=== PATIENT | male | born 1975 | race Caucasian/White ===

== ENCOUNTER 2021-12-09 13:53 | Emergency (ER) | payer BC, SELFPAY ==
--- NOTE | 2021-12-09 14:00 | XR_ITS ---
WS: [id number] XR foot RT min 3V* [id number] REASON FOR EXAM: pain FINDINGS: No fracture or focal bone lesion. Joint spaces of the forefoot, midfoot, and hindfoot are intact. No significant soft tissue abnormality identified. XR/XR foot RT min 3V* [id number] IMPRESSION: No acute abnormality.
[2021-12-09 14:05] VITALS: BP 167/89; PULSE 119; RESP 18; TEMP 36.8; O2SAT 98; BMI 28.8
--- NOTE | 2021-12-09 14:18 | W.ED.EXTPRO ---
HPI - Extremity Problem General: Chief complaint: Extremity Injury, Lower Stated complaint: Right foot pain Time Seen by Provider: 12/09/21 14:13 History of Present Illness: Patient is a 46-year-old male comes to the ED with right foot pain. Injury occurred 2 days ago. Patient says he got his right foot caught in the bed of truck and then fell twisting his right foot ankle and lower leg. Since injury he has had pain and swelling in his right foot over his fourth and fifth metatarsal region. He also has a blood blister in between his fourth and fifth toe. He has swelling redness to the right foot. Endorses pain in his right ankle as well and it radiates up and to the middle of his [place]. He rates his pain currently a 9 out of 10. He has taken ibuprofen and Tylenol and it has not helped. Associated symptoms: Deny chest pain, fever(s) or rash Review of Systems Const: Denies: fever(s), chills or fatigue Eyes: Denies: change in vision or eye discomfort ENMT: Denies: throat pain, odynophagia, nasal discharge or nasal congestion Card: Denies: chest pain, palpitations, edema, swelling of feet/ankles, dyspnea on exertion or orthopnea Resp: Denies: dyspnea, productive cough or non-productive cough GI: Denies: abdominal pain, nausea, vomiting, diarrhea, constipation or hematochezia : Denies: flank pain, difficulty urinating, dysuria or hematuria Musc: Reports: extremity pain (Right foot and ankle) and extremity swelling (Right foot); Denies: neck pain or back pain Skin/Breast: Denies: rash or new lesions Neuro: Denies: headache(s), numbness in extremities or weakness in extremities [facility], [facility] ED PFSH: Medical History No pertinent family history No pertinent past medical history Physical Exam Const: COMMON NORMALS: patient oriented x3, healthy appearing and alert GENERAL APPEARANCE: cooperative HENMT: COMMON NORMALS: normocephalic HEAD & SCALP: normocephalic MOUTH: Normal oral and palatal mucosa present THROAT: posterior oropharynx normal and uvula midline Neck/C-Spine: COMMON NORMALS: supple GENERAL: Yes normal visual inspection Resp: COMMON NORMALS: normal respiratory effort, No retractions, No use of accessory muscles and clear to auscultation bilaterally AUSCULTATION: clear to auscultation bilaterally Cardio: COMMON NORMALS: regular rate, regular rhythm, S1 normal heart sound present, S2 normal heart sound present, No gallops present (Cardio), No clicks present (Cardio), No murmurs present (Cardio) and Peripheral pulses 2+ throughout RATE: regular rate RHYTHM: regular rhythm HEART SOUNDS: S1 normal heart sound present and S2 normal heart sound present PERIPHERAL PULSES: Peripheral pulses 2+ throughout GI: COMMON NORMALS: Normal to inspection, nondistended, normoactive bowel sounds present, Soft to palpation, non-tender and no masses PALPATION: Yes Soft to palpation : COMMON NORMALS: Yes no CVA tenderness BLADDER/KIDNEY EXAM: Yes no CVA tenderness Back/Pelvis: COMMON NORMALS: no CVA tenderness Extremity: NARRATIVE EXTREMITY EXAM: Right foot?in between third and fourth digits patient has a blood blister. There is tenderness, erythema and warmth surrounding blood blister which is concerning for possible cellulitis developing. RIGHT LOWER EXTREMITY: Yes foot & digits Right ankle: Yes inspection (Mild swelling no visible deformity noted), Yes palpation (Tenderness over lateral malleolus), Yes ROM (Limited due to pain) and Yes neurovascular exam (Neurovascular tact) and Yes foot & digits (Swelling and erythema of the right foot. Tender over midfoot) Right foot and digits: Yes palpation (Tender over midfoot) Neuro: COMMON NORMALS: patient oriented x3 SENSORIUM/ORIENTATION: Yes alert GAIT: Yes Normal gait present Skin: GENERAL SKIN EXAM: dry skin Course Vital Signs: Vital signs: Vital Signs Temperature 98.2 F 12/09/21 14:05 Pulse Rate 119 H 12/09/21 14:05 Respiratory Rate 18 12/09/21 14:05 Blood Pressure 167/89 12/09/21 14:05 Pulse Oximetry 98 12/09/21 14:05 Oxygen Delivery Me thod 12/09/21 14:05 MDM - Extremity (Nontraumatic) Medical Decision Making Patient is a 46-year-old male comes to the ED with right foot and ankle injury. Patient had a twisting injury to right ankle and foot. Vital stable. Patient has some swelling of the midfoot region. There is a blood blister present in between fourth and fifth toes with surrounding erythema, warmth and tenderness just suggestive of a cellulitis. He has lateral malleolus tenderness and limited range of motion ankle as well. Patient has pain with weightbearing. Neurovascular tact. X-rays of right foot, ankle and tib-fib showed no acute fractures. Given patient's clinical appearance I am going to put patient in an Ortho boot and I placed an order with case management for patient to be referred to Ortho for follow-up on ankle and foot sprain. Patient was diagnosed with right foot and ankle sprain and cellulitis. He was discharged home with a prescription for hydrocodone for pain and cephalexin for cellulitis. Follow-up with PCP in the next week for reevaluation as well. Return ED precautions given. Patient understood and agreed with plan. Lab Data Radiology Impressions Foot X-Ray 12/09/21 14:00 IMPRESSION: No acute abnormality. Ankle X-Ray 12/09/21 14:30 IMPRESSION: No acute abnormality. Tibia/Fibula X-Ray 12/09/21 14:30 IMPRESSION: No acute abnormality. Discharge Plan Discharge Patient Disposition: Home Clinical Impression: Ankle sprain and strain Foot sprain Qualifiers: Encounter type: initial encounter Laterality: right Qualified Code(s): S93.601A - Unspecified sprain of right foot, initial encounter Cellulitis Qualifiers: Site of cellulitis: extremity Site of cellulitis of extremity: lower extremity Laterality: right Qualified Code(s): L03.115 - Cellulitis of right lower limb Condition: Stable Prescriptions: New cephalexin 500 mg capsule 500 mg PO Q6H 7 Days Qty: 28 0RF Discharge Orders: Discharge ED (Routine); Ordered 12/09/21 Ordered By: David Galeas Referrals: Jennifer Garcia APN [Primary Care Provider] - Discharge Diet: Regular Discharge Activity: Increase activity as tolerated Activity Restrictions/Additional Instructions: Follow-up with PCP to reevaluate right foot within a week. Wear Ortho boot and weight-bear as tolerated until you are evaluated by orthopedic doctor. Ice and elevate right foot and ankle to help with symptoms as well. geriatric care manager should contact you in the next several days set up an appoint with Ortho for follow-up on ankle and foot sprain. Take medications as prescribed. Return to the ER or your medical provider if condition worsens. Please read and understand discharge instructions. Thank you for choosing [facility] for your healthcare needs today. Please realize this is an emergency room and that we are providing you with a medical screening exam and this may not be complete and all inclusive of all the testing and or work up that you may need to determine your ailment or severity of your illness. It is very important that you follow up as instructed or that you return to the Emergency Department should you have concerns or if your condition changes or worsens in any way. Coding Level of Care Code ED Food Quality Technician for [place] Fwd Exam Comprehensive
--- NOTE | 2021-12-09 14:30 | XR_ITS ---
WS: [id number] XR ankle RT min 3V* [id number] REASON FOR EXAM: Twist injury to ankle FINDINGS: The joint spaces of the right ankle are intact. Fibula, tibia, and talus are intact. No soft tissue abnormality. XR/XR ankle RT min 3V* [id number] IMPRESSION: No acute abnormality.
--- NOTE | 2021-12-09 14:30 | XR_ITS ---
WS: [id number] XR tibia fibula RT 2V [id number] REASON FOR EXAM: twist injury to lower leg FINDINGS: The right tibia and fibula are intact, without fracture. No periosteal reaction or focal bone lesion. No soft tissue abnormality. XR/XR tibia fibula RT 2V [id number] IMPRESSION: No acute abnormality.
[2021-12-09] MEDS: HYDROcodone-acetaminophen 7.5-325 mg Tablet 1 TAB PO (14:47)
[2021-12-09 16:36] VITALS: RESP 16
[2021-12-09] MEDS: cephALEXin 500 mg Capsule PO (16:36)
[2021-12-09] MEDS: oxyCODONE-APAP 5-325 mg Tablet 1 TAB PO (16:36)
[2021-12-09 16:41] VITALS: PULSE 109; RESP 16; O2SAT 97
--- NOTE | 2021-12-10 14:21 | PC.NURSE ---
pt called, noted adverse reaction to antibiotic cephalexin new prescription of Cipro 500mg PO twice daily x 7 days called into [facility] pharmacy per Remi
--- NOTE | 2021-12-12 09:18 | DCPLANNER ---
Addendum entered by Jaz Cisneros 12/15/21 14:06: Patient had a follow up appointment scheduled for 12.13.[address] Kingsley at ortho - patient did attend appointment. Original Note: housekeeping manager had message to schedule a follow up appointment for patient with ortho. housekeeping manager sent patients information to the front office staff at ortho. Patients information will be printed and reviewed. Clinic will call patient with appointment information.
== END 2021-12-09 16:42 | disposition home or self-care (01) ==
PROVIDERS: Emergency Provider Physician Assistant; PCP Nurse Practitioner Family
DX: S93.601A Unspecified sprain of right foot, initial encounter (principal); L03.115 Cellulitis of right lower limb; S93.401A Sprain of unspecified ligament of right ankle, initial encounter; S96.911A Strain of unspecified muscle and tendon at ankle and foot level, right foot, initial encounter; X50.1XXA Overexertion from prolonged static or awkward postures, initial encounter
CPT/HCPCS: 73590; 73610; 73630; 97760; 99284; L4361

== ENCOUNTER 2021-12-13 16:23 | Outpatient (CLI) | payer BC, SELFPAY | END 2021-12-13 16:24 | disposition home or self-care (01) | LOC: SPT 16:23 | PROVIDERS: PCP Nurse Practitioner Family; Visit Provider Podiatrist Foot & Ankle Surgery | DX: Z46.89 Encounter for fitting and adjustment of other specified devices (principal); S93.401D Sprain of unspecified ligament of right ankle, subsequent encounter; S96.911D Strain of unspecified muscle and tendon at ankle and foot level, right foot, subsequent encounter; X58.XXXD Exposure to other specified factors, subsequent encounter | CPT/HCPCS: 97760; L1902 ==

== ENCOUNTER 2022-02-07 15:33 | Inpatient (IN) | payer OTHER, BC, SELFPAY ==
[2022-02-07 15:35] VITALS: BP 161/82; PULSE 100; RESP 18; TEMP 36.8; O2SAT 96; BMI 302.8
--- NOTE | 2022-02-07 16:24 | XRR_ITS ---
PROCEDURE INFORMATION: Exam: XR Right Foot Exam date and time: 02/07/2022 4:41 PM Age: 46 years old Clinical indication: Pain; Foot; Right; Additional info: Infected wound on foot TECHNIQUE: Imaging protocol: Radiologic exam of the Right foot. Views: 3 or more views. COMPARISON: No relevant prior studies available. FINDINGS: Bones/joints: Normal. Soft tissues: Normal. XR/XR foot RT min 3V* [id number] IMPRESSION: No acute findings. Unremarkable soft tissues no foreign body
--- NOTE | 2022-02-07 16:29 | ED_ITS ---
Documented by User: ERIC Espinoza 02/08/22 08:03 HPI - Wound/Laceration General: Chief Complaint: Wound/Laceration Stated Complaint: injury to foot, sent by wound clinic Time Seen by Provider: 02/07/22 16:28 History of Present Illness: Patient is a 46-year-old female that comes to the ED for right foot wound. Patient was sent here to the ED via wound clinic for admission. He has had this wound for about 2 months and has been on multiple antibiotics and wound is not improving. He is currently on levofloxacin. Wound care clinic talked with Dr. Jordan about patient case and he recommended having patient sent to the ED for admission and he will need to be on IV antibiotics. Associated symptoms: Denies chills, fever(s), nausea or vomiting Review of Systems Const: Denies: fever(s), chills or fatigue Eyes: Denies: change in vision or eye discomfort ENMT: Denies: throat pain, odynophagia, nasal discharge or nasal congestion Card: Denies: chest pain, palpitations, edema, swelling of feet/ankles, dyspnea on exertion or orthopnea Resp: Denies: dyspnea, productive cough or non-productive cough GI: Denies: abdominal pain, nausea, vomiting, diarrhea, constipation or hematochezia : Denies: flank pain, difficulty urinating, dysuria or hematuria Musc: Reports: extremity pain (Right foot); Denies: neck pain, back pain or extremity swelling Skin/Breast: Reports: new lesions (Right foot wound); Denies: rash Neuro: Denies: headache(s), numbness in extremities or weakness in extremities [facility] ED PFSH: Medical History No pertinent family history No pertinent past medical history Social History Smoking and tobacco status: current every day smoker smokeless tobacco Smokeless tobacco user: snuff Smokeless tobacco details: can per day x 40 yrs Second hand smoke exposure: No Alcohol intake: current Alcohol intake frequency: holidays/special occasions only Alcohol type: beer Adopted: No Caregiver/support person: Yes Lives independently: Yes Household members: other Marital status: Unknown service: No Current occupational status: employed Current occupation: [employer] History of recent travel: No Current gender identity: Male Special wagner needs: No Physical Exam Const: COMMON NORMALS: patient oriented x3 and alert GENERAL APPEARANCE: cooperative HENMT: COMMON NORMALS: normocephalic HEAD & SCALP: normocephalic MOUTH: Normal oral and palatal mucosa present THROAT: posterior oropharynx normal and uvula midline Neck/C-Spine: COMMON NORMALS: supple GENERAL: Yes normal visual inspection Resp: COMMON NORMALS: normal respiratory effort, No retractions, No use of accessory muscles and clear to auscultation bilaterally AUSCULTATION: clear to auscultation bilaterally Cardio: COMMON NORMALS: regular rate, regular rhythm, S1 normal heart sound present, S2 normal heart sound present, No gallops present (Cardio), No clicks present (Cardio), No murmurs present (Cardio) and Peripheral pulses 2+ throughout RATE: regular rate RHYTHM: regular rhythm HEART SOUNDS: S1 normal heart sound present and S2 normal heart sound present PERIPHERAL PULSES: Peripheral pulses 2+ throughout GI: COMMON NORMALS: Normal to inspection, nondistended, normoactive bowel sounds present, Soft to palpation, non-tender and no masses PALPATION: Yes Soft to palpation : COMMON NORMALS: Yes no CVA tenderness BLADDER/KIDNEY EXAM: Yes no CVA tenderness Back/Pelvis: COMMON NORMALS: no CVA tenderness Extremity: NARRATIVE EXTREMITY EXAM: Patient is wound between fourth and fifth toe. He is erythema, warmth, swelling and tenderness throughout his midfoot as well. Purulent drainage from wound present. Neuro: COMMON NORMALS: patient oriented x3 SENSORIUM/ORIENTATION: Yes alert GAIT: Yes Normal gait present Skin: GENERAL SKIN EXAM: dry skin Course Consultations: Consultation #1: I spoke with Dr. Jordan about patient case and he was aware of patient. He would like to have patient admitted to the hospital and put on IV antibiotics and an MRI of the foot done with and without contrast. After MRI is done he will decide on taking to surgery or not. Time: 17:09 Vital Signs: Vital signs: Vital Signs Temperature 97.9 F 02/08/22 04:00 Pulse Rate 93 02/08/22 04:00 Respiratory Rate 16 02/08/22 04:43 Blood Pressure 129/74 02/08/22 04:00 Pulse Oximetry 92 02/08/22 04:00 Oxygen Delivery Me thod 02/07/22 21:27 MDM - Wound/Laceration Lab Data I reviewed the patient's lab results. : 02/08/22 05:49 02/08/22 05:49 Radiology Impressions Foot X-Ray 02/07/22 16:24 IMPRESSION: No acute findings. Unremarkable soft tissues no foreign body Laboratory Results WBC 8.2 10^3/uL (4.0-10.0) 02/07/22 16:41 RBC 5.46 10^6/uL (4.1-5.3) H 02/07/22 16:41 Hgb 14.7 g/dL (11.7-16.6) 02/07/22 16:41 Hct 43.3 % (42.0-52.0) 02/07/22 16:41 MCV 79.3 fl (80-94) L 02/07/22 16:41 MCH 26.9 pg (28.0-34.0) L 02/07/22 16:41 MCHC 33.9 g/dL (30.0-36.0) 02/07/22 16:41 RDW 12.7 % (12.1-15.1) 02/07/22 16:41 Plt Count 227 10^3/cmm (130-400) 02/07/22 16:41 MPV 10.5 fL (7.4-10.4) H 02/07/22 16:41 Neut % (Auto) 73.8 % 02/07/22 16:41 Lymph % (Auto) 17.0 % 02/07/22 16:41 [place] % (Auto) 6.1 % 02/07/22 16:41 Eos % (Auto) 2.1 % 02/07/22 16:41 Baso % (Auto) 0.5 % 02/07/22 16:41 Neut # (Auto) 6.07 10^3/uL (1.8-7.7) 02/07/22 16:41 Lymph # (Auto) 1.4 10^3/uL (0.8-4.8) 02/07/22 16:41 [place] # (Auto) 0.5 10^3/uL (0.2-0.9) 02/07/22 16:41 Eos # (Auto) 0.2 10^3/uL (0.0-0.8) 02/07/22 16:41 Baso # (Auto) 0.0 10^3/uL (0.0-0.1) 02/07/22 16:41 Nucleated RBC % (auto) 0 % 02/07/22 16:41 Nucleated RBCs # 0.0 /100WBC 02/07/22 16:41 ESR 9 mm/hr (0-10) 02/07/22 16:41 D-Dimer 0.59 ug/mIFEU (0-0.59) 02/07/22 16:41 Sodium 132 mmol/L (136-145) L 02/07/22 16:41 Potassium 4.2 mmol/L (3.5-5.1) 02/07/22 16:41 Chloride 95 mmol/L (98-107) L 02/07/22 16:41 Carbon Dioxide 26 mmol/L (22-29) 02/07/22 16:41 Anion Gap 15.2 (5-19) 02/07/22 16:41 BUN 15 mg/dL (6-20) 02/07/22 16:41 Creatinine 0.7 mg/dL (0.7-1.2) 02/07/22 16:41 GFR Calculation 122.0 mL/min (90-130) 02/07/22 16:41 Glucose 396 mg/dL (65-115) H 02/07/22 16:41 Calculated Osmolality 291 mOsm/kg (285-295) 02/07/22 16:41 Lactic Acid 1.9 mmol/L (0.5-2.2) 02/07/22 16:41 Calcium 8.9 mg/dL (8.5-10.5) 02/07/22 16:41 Total Bilirubin 0.2 mg/dL (0.15-1.2) 02/07/22 16:41 AST 11 U/L (0-40) 02/07/22 16:41 ALT 12 U/L (0-41) 02/07/22 16:41 Alkaline Phosphatase 112 U/L (40-130) 02/07/22 16:41 C-Reactive Protein 18.4 mg/L (0.0-4.9) H 02/07/22 16:41 Total Protein 7.1 g/dL (6.6-8.7) 02/07/22 16:41 Albumin 4.1 g/dL (3.5-5.2) 02/07/22 16:41 Globulin 3.0 g/dL (1.3-4.6) 02/07/22 16:41 Procalcitonin 0.05 ng/mL (0-0.5) 02/07/22 16:41 TSH 0.57 uIU/mL (0.27-4.20) 02/07/22 16:41 Discharge Plan Discharge Patient Disposition: Admitted As Inpatient Admit Provider: Carine Candelario Clinical Impression: Abscess of right foot excluding toes, Impaired glucose tolerance Condition: Stable Sign Out Sign Out Data: Patient Sign Out occurred on 02/07/22 at 17:10. Patient's care was discussed, and care was transferred from to Madhav Maher DO. Coding Level of Care Code ED Community Resource Consultant for Chg Fwd Exam Comprehensive Documented by User: Madhav Maher DO 02/07/22 18:31 HPI - Wound/Laceration General: Chief Complaint: Wound/Laceration Stated Complaint: injury to foot, sent by wound clinic Time Seen by Provider: 02/07/22 16:28 [facility] ED PFSH: Medical History No pertinent family history No pertinent past medical history Social History Smoking and tobacco status: current every day smoker smokeless tobacco Smokeless tobacco user: snuff Smokeless tobacco details: can per day x 40 yrs Second hand smoke exposure: No Alcohol intake: current Alcohol intake frequency: holidays/special occasions only Alcohol type: beer Adopted: No Caregiver/support person: Yes Lives independently: Yes Household members: other Marital status: Unknown service: No Current occupational status: employed Current occupation: [employer] History of recent travel: No Current gender identity: Male Special wagner needs: No Course Vital Signs: Vital signs: Vital Signs Temperature 97.9 F 02/08/22 04:00 Pulse Rate 93 02/08/22 04:00 Respiratory Rate 16 02/08/22 04:43 Blood Pressure 129/74 02/08/22 04:00 Pulse Oximetry 92 02/08/22 04:00 Oxygen Delivery Me thod 02/07/22 21:27 MDM - Wound/Laceration Medical Decision Making Foot abscess secondary to minor trauma. He has significant amount of erythema and redness. Patient was seen by wound care and Dr. Jordan has been consulted he is in the ER and seeing the patient they are planning to take him to the OR after further advanced imaging. He has been started on vancomycin will admit with hospitalist orders written. Lab Data : 02/08/22 05:49 02/08/22 05:49 Radiology Impressions Foot X-Ray 02/07/22 16:24
[2022-02-07 16:47] LABS: Basophils % 0.5 %; Eosinophils # 0.2 10^3/uL (0.0-0.8); Eosinophils % 2.1 %; Hematocrit 43.3 % (42.0-52.0); Hemoglobin 14.7 g/dL (11.7-16.6); Lymphocytes # 1.4 10^3/uL (0.8-4.8); Mean Corpuscular HGB Conc 33.9 g/dL (30.0-36.0); Mean Corpuscular Hemoglobin 26.9 pg (28.0-34.0); Mean Corpuscular Volume 79.3 fl (80-94); Mean Platelet Volume 10.5 fL (7.4-10.4); Monocytes # 0.5 10^3/uL (0.2-0.9); Monocytes % 6.1 %; Neutrophils # 6.07 10^3/uL (1.8-7.7); Neutrophils % 73.8 %; Nucleated Red Blood Cells % 0 %; Platelet Count 227 10^3/cmm (130-400); Red Blood Count 5.46 10^6/uL (4.1-5.3); Red Cell Distribution Width 12.7 % (12.1-15.1); White Blood Count 8.2 10^3/uL (4.0-10.0)
[2022-02-07] MEDS: ondansetron 2 mg/ML SDV 2 mL 4 MG IVP (17:05)
[2022-02-07 17:07] LABS: Alanine Aminotransferase 12 U/L (0-41); Albumin Level 4.1 g/dL (3.5-5.2); Alkaline Phosphatase 112 U/L (40-130); Anion Gap 15.2 (5-19); Aspartate Amino Transferase 11 U/L (0-40); Blood Urea Nitrogen 15 mg/dL (6-20); C Reactive Protein 18.4 mg/L (0.0-4.9); Calcium 8.9 mg/dL (8.5-10.5); Carbon Dioxide 26 mmol/L (22-29); Chloride 95 mmol/L (98-107); Glucose 396 mg/dL (65-115); Osmolality Calculated 291 mOsm/kg (285-295); Potassium 4.2 mmol/L (3.5-5.1); Sodium 132 mmol/L (136-145); Total Bilirubin 0.2 mg/dL (0.15-1.2); Total Protein 7.1 g/dL (6.6-8.7)
[2022-02-07 17:08] LABS: Lactic Sepsis W/Reflex 1.9 mmol/L (0.5-2.2)
[2022-02-07 17:12] LABS: Erythrocyte Sedimentation Rate 9 mm/hr (0-10)
[2022-02-07] MEDS: sodium chloride 0.9% 1,000 ML 999 ML IV (17:25)
[2022-02-07] MEDS: vancomycin 1,500 MG/300 ML PIGGYBACK 200 MG IV (17:25)
[2022-02-07 17:52] VITALS: RESP 17; O2SAT 99
[2022-02-07] MEDS: fentaNYL 50 mcg/mL INJ 2mL IVP ×2 (17:52→19:01)
--- NOTE | 2022-02-07 18:06 | PM.CONSULT ---
Providers/Reason For Consult Consulting Physician/Specialty*: Bandar Jordan D.P.M. Reason for Consult*: Cellulitis right foot Primary Care Provider: Brooke Del Real MD History of Present Illness History of Present Illness Alvaro Price is a 46 year old male presents to the emergency department as a referral from the wound care clinic for cellulitis to the right foot having failed outpatient antibiotics. Initial injury was approximately 12/07/2021 he got his foot caught in the back of a truck bed injuring his forefoot. Per chart review he presented to the emergency department 12/09/2021 and noted to have a blood blister between the fourth and fifth toes with warmth, tenderness and cellulitis. Was discharged on oral cephalexin 500 mg twice daily for 7 days patient reports popping the blister himself and doing Epson salt soaks, this was not advised by medical professional. He was also prescribed Augmentin and advised to utilize Betadine between the fourth and fifth toes of the right foot. He failed to follow-up in clinic outpatient. He lives alone, has 1 child, works on the [employer] department. Review of Systems General: Reports: 10 or more systems reviewed and unremarkable except in HPI and below Const: Denies: fever(s) or chills Eyes: Denies: change in vision Card: Denies: chest pain or palpitations Resp: Denies: dyspnea or productive cough GI: Denies: abdominal pain, nausea or vomiting : Denies: flank pain Musc: Reports: extremity swelling, joint stiffness and deformity Skin/Breast: Reports: erythema, sores, changes in skin color, dry skin, nail changes and change in hair Neuro: Reports: numbness in extremities, sensory changes and difficulty walking Psych: Denies: suicidal ideation Endo: Denies: change in body appearance Timothy/Lymph: Denies: tender lymph nodes Medications/Allergies Home Medications Medication Instructions Recorded Confirmed Last Taken Type amoxicillin 875 mg-potassium 1 tab PO BID #20 tabs 01/23/22 01/23/22 Unknown Rx clavulanate 125 mg tablet mupirocin 2 % topical ointment 1 applic topical BID #22 grams 01/23/22 01/23/22 Unknown Rx hydrocodone 5 mg-acetaminophen 325 1 tab PO Q6H PRN pain 7 days #28 02/02/22 Unknown Rx mg tablet tabs levofloxacin 750 mg tablet 750 mg PO DAILY #10 tabs 02/02/22 Unknown Rx Allergies Allergy/AdvReac Type Severity Reaction Status Date / Time Sulfa (Sulfonamide Allergy ALGY-Rash Verified 12/22/21 09:34 Antibiotics) PFSH Acute PFSH: Medical History No pertinent family history No pertinent past medical history Social History Smoking and tobacco status: current every day smoker smokeless tobacco Smokeless tobacco user: snuff Smokeless tobacco details: can per day x 40 yrs Second hand smoke exposure: No Alcohol intake: current Alcohol intake frequency: holidays/special occasions only Alcohol type: beer Adopted: No Caregiver/support person: Yes Lives independently: Yes Household members: other Marital status: Unknown service: No Current occupational status: employed Current occupation: [employer] History of recent travel: No Current gender identity: Male Special wagner needs: No Vitals/I&O/Wt Last Vital Signs Temp 98.2 F 02/07/22 15:35 Pulse 100 02/07/22 15:35 Resp 17 02/07/22 17:52 BP 161/82 02/07/22 15:35 Pulse Ox 99 02/07/22 17:52 O2 Del Method 02/07/22 15:35 Weight last 48 hrs Weight 1992 lb Physical Exam Narrative: GENERAL: Patient is alert and oriented ?3 and in no acute distress. The following is a focused bilateral lower extremity exam. VASCULAR: Dorsalis pedis palpable +2, posterior tibial arteries +2. Capillary refill time less than 3 seconds to the distal hallux bilaterally. Calf is supple and nontender proximally and distally. Focal edema to the right dorsal forefoot. NEUROLOGICAL: Protective sensation diminished to the lower extremities. DERMATOLOGICAL: Cellulitis to the dorsum of the right forefoot extends slightly to mid foot. Sinus tract probes 5 mm at the right fourth webspace, sinus tract measures 2 mm x 2 mm x 5 mm with serosanguineous drainage. MUSCULOSKELETAL: Tenderness at right forefoot, no soft tissue crepitus. Data : 02/07/22 16:41 02/07/22 16:41 A&P Assessment and plan (1) Cellulitis of right foot: (2) Diabetic peripheral neuropathy associated with type 2 diabetes mellitus: (3) Non-pressure chronic ulcer of other part of right foot with necrosis of muscle: Plan Full 2-month history of nonhealing wound at the right fourth webspace presents with cellulitis and failure to improve on outpatient antibiotics which have included Rocephin, Augmentin and cephalexin prescribed through the emergency department as well as primary care. 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 Per my interpretation right foot x-ray taken at today's visit shows area of soft tissue emphysema dorsal to the right fourth metatarsal this is a small focal area without proximal tracking, no obvious foreign body and no bony destruction appreciated, no periosteal reaction per my read. CR P 18.4 mg/L, ESR 9 mm/h, white blood count 8.2, glucose 396 Wound culture aerobic and anaerobic taken of the sinus track in the right fourth webspace Empiric IV antibiotics recommended Recommend MRI of the right foot with and without contrast prior to surgical intervention Planning on surgical debridement once MRI is completed Patient may heel touch for transfers to the right lower extremity otherwise elevate right foot while resting. N.p.o. at midnight tonight will adjust should MRI not be completed overnight. 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
--- NOTE | 2022-02-07 18:31 | P.HP_ITS ---
Providers/Chief Complaint Primary Care Provider: Brooke Del Real MD Chief Complaint: injury to foot, sent by wound clinic History of Present Illness Alvaro Price is a 46 year old male who has presented for worsening of right foot swelling and redness, podiatry has been consulted who asked hospitalist service to admit the patient. Patient is stating that he suffered an injury 2 months ago when he injured his foot which he is describing as foot getting caught in between the curbside and the garbage truck, he was seen in the ER and was given antibiotic Augmentin and then other times Levaquin however his symptoms have not improved he has not noticed any fever, no chills, nausea, vomiting At the time of presentation he is not septic, Dr. Jordan was consulted who wanted MRI at the time of duration however we could not do so from the evening, he will be admitted will get MRI in the morning, patient will be kept n.p.o. for possible I&D in the morning we will start him on broad-spectrum antibiotics At the time of my evaluation patient has fistula, track between his fourth and fifth toe Review of Systems Const: Reports: chills and fatigue Eyes: Denies: change in vision ENMT: Denies: throat pain Card: Denies: chest pain Resp: Denies: dyspnea GI: Denies: abdominal pain : Denies: flank pain Musc: Reports: extremity pain, joint stiffness, limited range of motion and muscle cramps Skin/Breast: Reports: rash Neuro: Denies: headache(s) Psych: Reports: anxiety Endo: Denies: cold intolerance Timothy/Lymph: Denies: easy bruising All/Imm: Denies: urticaria Medications/Allergies Home Medications Medication Instructions Recorded Confirmed Last Taken Type mupirocin 2 % topical ointment 1 applic topical BID #22 grams 01/23/22 02/07/22 Unknown Rx hydrocodone 5 mg-acetaminophen 325 1 tab PO Q6H PRN pain 7 days #28 02/02/22 02/07/22 Unknown Rx mg tablet tabs levofloxacin 750 mg tablet 750 mg PO DAILY #10 tabs 02/02/22 02/07/22 Unknown Rx Allergies Allergy/AdvReac Type Severity Reaction Status Date / Time Sulfa (Sulfonamide Allergy ALGY-Rash Verified 12/22/21 09:34 Antibiotics) PFSH Acute PFSH: Medical History No pertinent family history No pertinent past medical history Social History Smoking and tobacco status: current every day smoker smokeless tobacco Smokeless tobacco user: snuff Smokeless tobacco details: can per day x 40 yrs Second hand smoke exposure: No Alcohol intake: current Alcohol intake frequency: holidays/special occasions only Alcohol type: beer Adopted: No Caregiver/support person: Yes Lives independently: Yes Household members: other Marital status: Unknown service: No Current occupational status: employed Current occupation: [employer] History of recent travel: No Current gender identity: Male Special wagner needs: No Vitals/I&O/Wt Last Vital Signs Temp 98.2 F 02/07/22 15:35 Pulse 100 02/07/22 15:35 Resp 17 02/07/22 17:52 BP 161/82 02/07/22 15:35 Pulse Ox 99 02/07/22 17:52 O2 Del Method 02/07/22 15:35 Weight last 48 hrs Weight 903.556 kg Physical Exam Narrative: There is a fistula in between fourth and fifth toe of right foot Patient is awake and alert Comfortable in his bed Awake and alert Currently on room air No active signs of fever EOMI, PERRLA Nonfocal neuro exam Currently on room air No active chills or rigors Pleasant during my evaluation Appears stated age Data : 02/08/22 05:49 02/08/22 05:49 A&P Assessment and plan (1) Impaired glucose tolerance: (2) Abscess of right foot excluding toes: (3) Pressure ulcer with full thickness skin loss involving damage or necrosis of subcutaneous tissue: Plan Right foot fistula with abscess Cellulitis, purulent Dr. Jordan has been consulted We will keep him n.p.o. after midnight Start vancomycin and Zosyn Full code DVT prophylaxis to be held N.p.o. 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
[2022-02-07 18:56] VITALS: BP 166/81; PULSE 114; RESP 17; O2SAT 98
[2022-02-07 19:01] VITALS: RESP 16
[2022-02-07 19:08] LABS: D Dimer 0.59 ug/mIFEU (0-0.59)
[2022-02-07 19:29] LABS: Procalcitonin 0.05 ng/mL (0-0.5)
[2022-02-07 20:49] LABS: Thyroid Stimulating Hormone 0.57 uIU/mL (0.27-4.20)
[2022-02-07 21:07] VITALS: RESP 16
[2022-02-07] MEDS: HYDROmorphone 1 mg/mL INJ 1 mL 0.2 MG IVP (21:07)
[2022-02-07] MEDS: morphine IR 15 mg Tablet PO (21:07)
[2022-02-07 21:27] VITALS: PULSE 114; RESP 18; O2SAT 96
[2022-02-07 21:31] LABS: Glucose Point of Care 313 mg/dL (70-110)
--- NOTE | 2022-02-07 21:32 | PC.NURSE ---
Addendum entered by Maylin Tai RN 02/07/22 21:36: Lantus ordered. Addendum entered by Maylin Tai RN 02/07/22 21:34: Nurse asked patient if he has diabetes and patient states, I might be prediabetic. Original Note: Dr. Zurita notified of blood glucose of 313 and that patient does not have any insulin ordered.
[2022-02-07] MEDS: piperacillin-tazobactam 3.375 GM in sodium chloride 0.9% (plus) 50 ML IV (22:33)
[2022-02-07] MEDS: insulin glargine 100 units/1 mL 20 UNIT SUBCUT (22:34)
[2022-02-08] VITALS (16 sets, daily range): BP systolic 81–182; BP diastolic 49–109; PULSE 78–110; RESP 12–24; TEMP 36.2–36.8; O2SAT 92–98
[2022-02-08] MEDS: HYDROmorphone 1 mg/mL INJ 1 mL 0.2 MG IVP ×3 (01:07→19:27)
[2022-02-08] MEDS: vancomycin 1,000 MG in sodium chloride 0.9% 250 ML 250 MG IV ×2 (01:24→10:21)
[2022-02-08] MEDS: morphine IR 15 mg Tablet PO ×3 (04:43→17:07)
[2022-02-08] MEDS: piperacillin-tazobactam 3.375 GM in sodium chloride 0.9% (plus) 50 ML IV ×2 (04:44→21:34)
[2022-02-08 06:17] LABS: Glucose Point of Care 278 mg/dL (70-110)
[2022-02-08 06:41] LABS: Basophils # 0.1 10^3/uL (0.0-0.1); Basophils % 0.7 %; Eosinophils # 0.2 10^3/uL (0.0-0.8); Eosinophils % 3.1 %; Hematocrit 42.7 % (42.0-52.0); Hemoglobin 14.2 g/dL (11.7-16.6); Lymphocytes # 2.4 10^3/uL (0.8-4.8); Lymphocytes % 32.9 %; Mean Corpuscular HGB Conc 33.3 g/dL (30.0-36.0); Mean Corpuscular Hemoglobin 26.8 pg (28.0-34.0); Mean Corpuscular Volume 80.6 fl (80-94); Mean Platelet Volume 10.9 fL (7.4-10.4); Monocytes # 0.6 10^3/uL (0.2-0.9); Monocytes % 8.2 %; Neutrophils # 3.96 10^3/uL (1.8-7.7); Neutrophils % 54.8 %; Nucleated Red Blood Cells % 0 %; Platelet Count 223 10^3/cmm (130-400); Red Cell Distribution Width 12.7 % (12.1-15.1); White Blood Count 7.2 10^3/uL (4.0-10.0)
[2022-02-08 06:58] LABS: Anion Gap 14.1 (5-19); Blood Urea Nitrogen 11 mg/dL (6-20); C Reactive Protein 14.9 mg/L (0.0-4.9); Carbon Dioxide 29 mmol/L (22-29); Chloride 100 mmol/L (98-107); Glomerular Filtration Rate 104.5 mL/min (90-130); Glucose 266 mg/dL (65-115); Magnesium 1.9 mg/dL (1.7-2.3); Osmolality Calculated 297 mOsm/kg (285-295); Potassium 4.1 mmol/L (3.5-5.1); Sodium 139 mmol/L (136-145)
--- NOTE | 2022-02-08 07:06 | MR_ITS ---
WS: [id number] INDICATION: Twisted foot 2 months ago. TECHNIQUE: Sagittal T1, STIR, axial T1 PD and T2 imaging. Coronal PD and T2 imaging. Post gadolinium imaging with fat saturation technique. FINDINGS: Edema with enhancement involving the head of the 4th metatarsal suspicious for osteomyeliti s. No other evidence of osteomyelitis. In the area of interest, between the 4th and 5th distal metata rsal heads and MTP joints there is an area of ulceration dorsally with fistulous tract extending into the subcutaneous soft tissues. This extends posteriorly along the 3rd and 4th metatarsals dorsally. Associated peripheral enhancement. Diffuse surrounding soft tissue edema with enhancement consistent with cellulitis. Small peripheral enhancing fistulous tract with complex fluid suspicious for phlegmo n/abscess. Small amount of indeterminate T2 signal abnormality with enhancement involving the proxima l 3rd metatarsal may represent degenerative cystic change versus posttraumatic sequelae or healing fr acture versus small intraosseous bony lesion. This can be followed up with CT to assess for change. A ppearance is not typical for osteomyelitis. MR/MR foot RT wo/w con [id number] IMPRESSION: 1. Small amount of edema and enhancement involving the head of the 4th metatar windy suspicious for osteomyelitis. 2. Dorsal foot ulceration between the 4th and 5th phalanges extending posterio rly with a dorsal fistulous tract. Complex internal fluid with peripheral enhan cement suspicious for phlegmon/abscess. This does not appear easily drainable. This measures approximately 1.6 x 1.6 x 0.6 cm AP by transverse by craniocaudal . This extends posteriorly along the extensor compartment retinaculum. 3. Associated inflammatory stranding and edema with enhancement in the dorsal foot subcutaneous soft tissues extending into the intertarsal spaces consistent with cellulitis with soft tissue infection. 4. Small focus of edema and enhancement in the proximal 3rd metatarsal nonspec ific but may represent degenerative subchondral cystic change, possibly healing fracture or contusion versus small intraosseous lesion. This can be followed u p with CT to assess for change.
[2022-02-08] MEDS: ondansetron 2 mg/ML SDV 2 mL 4 MG IVP (07:36)
--- NOTE | 2022-02-08 09:06 | PC.CHAP ---
Pastoral Care Encounter/Spiritual Assessment Type of Contact [] Declined sharepoint solutions architect visit [] Patient/Family/Request visit [] Outpatient visit [] Follow-up visit [] Physician referral [] Code/Alert [x] Routine visit [] Staff referral [] Actively dying [] Patient sleeping [] Family support [] [] Out of room [] Palliative care [] [] Receiving care in room [] Pre-surgical visit [] Trauma [] Long length of stay [] ICU visit [] Other: Relational/Emotional Strength [x] Patient feels connected with others/family/visitors/staff [] Distress [] Loneliness/isolation [] Abandonment Spirituality of Patient [x] Person of Raeann [] Attends Church of their Raeann [] Believes in Prayer [] Reads Bible or Temple materials [] There are Spiritual issues to be addressed Campaign Fundraiser Interventions [x] Prayer [x] Active listening [x] Non-anxious presence [x] Spiritual/emotional support [] Crisis/trauma care [] Spiritual counseling [] Bereavement support [] Provided bereavement packet [] Provided Bible/devotional materials [] Provided toy/stuffed animal, coloring book to patient or family member [] Provided Communion [] Anointing/[place] [] Salvation [x] Completed spiritual assessment [] Other: Impact on Illness or Injury [] Angry [] Fearful [] Anxious [] Often cries [] Exhaustion [] Unable to work [] Unable to attend restorationist [] Unable to walk/stand [] Unable to read [] Unable to drive [] Unable to eat/drink [] Unable to sleep [] Unable to be with family [] Patient intubated [] Other: Summary Pt injured self while working a few months back. He has continued to work and his foot has not healed. He now needs surgery which he will have today. Time spent with patient 10m
[2022-02-08] MEDS: gadobenate dimeglumine 20 mL vial IV (11:56)
--- NOTE | 2022-02-08 13:17 | P.PN_ITS ---
Subjective Subjective: Patient going for I&D today He is n.p.o. No fever overnight No signs of sepsis Vitals/I&O/Wt Last Vital Signs Temp 97.7 F 02/08/22 08:00 Pulse 102 H 02/08/22 09:56 Resp 18 02/08/22 09:56 BP 152/89 02/08/22 08:00 Pulse Ox 96 02/08/22 09:56 O2 Del Method 02/08/22 09:56 02/07/22 02/08/22 02/08/22 22:59 06:59 14:59 Intake Total 1540 / 1540 300 / 1840 Balance 1540 / 1540 300 / 1840 Weight last 48 hrs Weight 86.5 kg Weight 903.556 kg Physical Exam Narrative: Patient is awake and alert Nonfocal neuro exam No active distress Patient resting comfortably in supine fashion Currently on room air Abdomen soft No active complaints EOMI, PERRLA Data : 02/08/22 05:49 02/08/22 05:49 A&P Assessment and plan (1) Non-pressure chronic ulcer of other part of right foot with necrosis of muscle: (2) Diabetic peripheral neuropathy associated with type 2 diabetes mellitus: (3) Cellulitis of right foot: (4) Impaired glucose tolerance: (5) Foot abscess, right: Plan Right foot abscess Going for I&D by Dr. Jordan Start diet after surgery Will start DVT prophylaxis after 6 hours of surgery Currently is n.p.o. 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
[2022-02-08] MEDS: sodium chloride 0.9% 1,000 ML 30 ML IV (13:28)
--- NOTE | 2022-02-08 13:39 | P.ANESASSM_ITS ---
Pre-Anesthetic Assessment Height/Weight: Height 1.73 m Weight 86.5 kg Temp Pulse Resp BP Pulse Ox O2 Del Method 97.4 F L 101 H 18 182/106 98 02/08/22 13:17 02/08/22 13:17 02/08/22 13:17 02/08/22 13:17 02/08/22 13:17 02/08/22 13:17 Operation Date: 02/08/22 14:00 Proposed Procedures p I&D RIGHT FOOT(Right) - Bandar Jordan DPM Familial anesthetic complications: None Was Beta Matt taken within 24 hours: N/A Was Clonidine taken within 24 hours: N/A Last intake: > 8 hrs Social Tobacco and No alcohol Exam alert, oriented x 3, clear to auscultation bilaterally and regular rate & rhythm Airway Mallampati: Class III Dentition: full Metabolic Diabetes Mellitus Anesthetic Plan ASA status: 3 Anesthesia: MAC Risk of > 500 ml blood loss (7ml/kg in children): No Medications/Allergies Home Medications Medication Instructions Recorded Confirmed Last Taken Type mupirocin 2 % topical ointment 1 applic topical BID #22 grams 01/23/22 02/07/22 Unknown Rx hydrocodone 5 mg-acetaminophen 325 1 tab PO Q6H PRN pain 7 days #28 02/02/22 02/07/22 Unknown Rx mg tablet tabs levofloxacin 750 mg tablet 750 mg PO DAILY #10 tabs 02/02/22 02/07/22 Unknown Rx Allergies Allergy/AdvReac Type Severity Reaction Status Date / Time Sulfa (Sulfonamide Allergy ALGY-Rash Verified 12/22/21 09:34 Antibiotics) Current Medications Generic Name Dose Route Start Last Admin Trade Name Freq PRN Reason Stop Dose Admin Hydromorphone HCl 0.2 mg 02/07/22 20:06 02/08/22 04:43 Hydromorphone 1 Mg/Ml Inj 1 Ml IVP 0.2 mg Q4H PRN Administration pain Piperacillin Sod/Tazobactam 50 mls @ 12.5 mls/hr 02/07/22 20:06 02/08/22 04:44 Sod 3.375 gm/ Sodium Chloride IV 12.5 mls/hr Q8H BARBI Administration Protocol Vancomycin HCl 1,000 mg/ 250 mls @ 250 mls/hr 02/08/22 02:00 02/08/22 13:25 Sodium Chloride IV Infused Q8H BARBI Infusion Sodium Chloride 1,000 mls @ 30 mls/hr 02/08/22 13:15 02/08/22 13:28 Sodium Chloride 0.9% IV 02/09/22 13:14 30 mls/hr .Q24H BARBI Administration Insulin Glargine 20 unit 02/07/22 22:00 02/07/22 22:34 Insulin Glargine 100 Units/1 Ml SUBCUT 20 unit BEDTIME BARBI Administration Insulin Human Lispro 0 unit 02/08/22 08:00 02/08/22 13:05 Insulin Lispro 100 Unit/1 Ml SUBCUT Not Given TIDWM BARBI Protocol Morphine Sulfate 15 mg 02/07/22 20:06 02/08/22 10:21 Morphine Ir 15 Mg Tablet PO 15 mg Q6H PRN Administration pAIN Ondansetron HCl 4 mg 02/07/22 20:06 02/08/22 07:36 Ondansetron 2 Mg/Ml Sdv 2 Ml IVP 4 mg Q6H PRN Administration NAUSEA AND VOMITING Senna/Docusate Sodium 1 tab 02/08/22 09:00 02/08/22 08:22 Sennosides-Docusate Tablet PO Not Given DAILY BARBI PFSH Anesthesia Medical History No pertinent family history No pertinent past medical history Social History Smoking and tobacco status: current every day smoker smokeless tobacco Smokeless tobacco user: snuff Smokeless tobacco details: can per day x 40 yrs Second hand smoke exposure: No Alcohol intake: current Alcohol intake frequency: holidays/special occasions only Alcohol type: beer Adopted: No Caregiver/support person: Yes Lives independently: Yes Household members: other Marital status: Unknown service: No Current occupational status: employed Current occupation: [employer] History of recent travel: No Current gender identity: Male Special wagner needs: No Data Anesthesia : 02/08/22 05:49 02/08/22 05:49 Short CBC 02/07/22 02/08/22 Range/Units 16:41 05:49 WBC 8.2 7.2 (4.0-10.0) 10^3/uL Hgb 14.7 14.2 (11.7-16.6) g/dL Hct 43.3 42.7 (42.0-52.0) % MCV 79.3 L 80.6 (80-94) fl Plt Count 227 223 (130-400) 10^3/cmm Neut % (Auto) 73.8 54.8 % Neut # (Auto) 6.07 3.96 (1.8-7.7) 10^3/uL BMP 02/07/22 02/08/22 16:41 05:49 Sodium 132 L 139 Potassium 4.2 4.1 Chloride 95 L 100 Carbon Dioxide 26 29 BUN 15 11 Creatinine 0.7 0.8 Glucose 396 H 266 H Calcium 8.9 9.0 Liver Function 02/07/22 Range/Units 16:41 Total Bilirubin 0.2 (0.15-1.2) mg/dL AST 11 (0-40) U/L ALT 12 (0-41) U/L Alkaline Phosphatase 112 (40-130) U/L Albumin 4.1 (3.5-5.2) g/dL Coags 02/07/22 02/07/22 02/07/22 16:41 16:41 16:41 ESR 9 D-Dimer 0.59 C-Reactive Protein 18.4 H 02/08/22 05:49 ESR D-Dimer C-Reactive Protein 14.9 H Microbiology 02/07/22 17:15 Gram Stain - Final Toe - Toe Wound Culture - Preliminary Cardiac Studies: No Data to Display
[2022-02-08 14:00] LABS: Estmated Average Glucose 292; Hemoglobin A1C 11.8 % (4.0-6.0)
--- NOTE | 2022-02-08 14:55 | P.OP_ITS ---
Operative Report Date of procedure: February 08, 2022 Pre-op diagnosis: Diabetic foot infection with cellulitis, right. Post-op diagnosis: Same Post-op findings: Devitalized subcutaneous tissue, deep fascia, tendon sheath, tendon and muscle to the right fourth ray dorsally Procedure done: Incision and debridement right foot. Excision of wound with primary closure. Implants: 4-0 nylon, quarter inch Yanely drain Specimens removed/disposition: Aerobic and anaerobic deep surgical cultures taken and sent to microbiology for gram stain and culture Pathology: None Surgeon: Bandar Jordan D.P.M. Acquisition Analyst: Nemo Estimated blood loss: 5 11 IV fluids: None Urine output: 0 Complications: None Findings: See above Brief History: ull 2-month history of nonhealing wound at the right fourth webspace presents with cellulitis and failure to improve on outpatient antibiotics which have included Rocephin, Augmentin and cephalexin prescribed through the emergency department as well as primary care.? 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 Per my interpretation right foot x-ray taken at today's visit shows area of soft tissue emphysema dorsal to the right fourth metatarsal this is a small focal area without proximal tracking, no obvious foreign body and no bony destruction appreciated, no periosteal reaction per my read.? CR P 18.4 mg/L, ESR 9 mm/h, white blood count 8.2, glucose 396 Procedure: Under mild sedation the patient was brought to the operating room and remained on the gurney in supine position. A timeout was performed. Anesthesia was then administered by the anesthesia service. Local anesthesia injected by myself consisting of 30 cc of one-to-one mixture 1% lidocaine and 0.5% Marcaine plain in a right third, fourth and fifth ray block. Well-padded pneumatic tourniquet applied to the right ankle. The right lower extremity was then scrubbed, prepped and draped utilizing normal aseptic technique. No Esmarch bandage was utilized. Right foot was elevated and tourniquet inflated to 250 mmHg. Attention was directed to the dorsal aspect of the right forefoot where erythema was appreciated and fluctuance palpated at the dorsal distal right forefoot. There is a sinus tract with wound in the right fourth webspace with macerated margins. Wound probed dorsal and proximal medial approximately 6 cm. Over the area that the wound was probing from the fourth webspace this largely entailed the distal fourth ray. A dorsal incision was made over this region with a #15 blade approximately 6 cm in length with dissection carried down through subcutaneous tissue to the layer of the tendon sheath which was noted to have phlegmon, devitalized tissue and purulence, this was sharply debrided and irrigated out. Further debridement of devitalized epidermis, dermis, subcutaneous tissue, deep fascia and muscle was performed. All devitalized tissue was debrided and incision was irrigated with copious amounts of sterile skin solution. Attention was then directed to the right fourth webspace where a semielliptical incision was made converging on both sides of the sinus tract to healthy skin, macerated portion and devitalized portion was excised and passed from operative field followed by saline flush and direct closure utilizing 4-0 nylon. The dorsal incision was also then closed distally with 4-0 nylon fol lowed by insertion of 1/4 inch Sweet drain at the most proximal portion of the incision. Tourniquet was deflated and a prompt hyperemic response was noted to the distal digits of the right foot. Of note no bone was encountered during debridement, no devitalized bone appreciated. The incision was then dressed with sterile 4 x 4, Kerlix, ABD pad and 4 inch Geoffrey wrap. Tourniquet was deflated and a prompt hyperemic response is noted to the distal digits of the right foot. Patient tolerated the procedure and anesthesia well and was transferred to the PACU with vital signs stable and vascular status intact. Following a period of postop monitoring he will be transferred back to the floor will continue with empiric IV antibiotics and may narrow once cultures yield further information. May heel touch only for transfers otherwise elevate right foot while resting.
--- NOTE | 2022-02-08 15:02 | ANE.PACU2 ---
Inpatient post-anesthesia follow up: Airway intact: Yes Vital signs: Temperature 97.9 F Pulse Rate 89 Respiratory Rate 16 Blood Pressure 106/66 Pulse Oximetry 95 Oxygen Delivery Me thod Room Air Oxygen Flow Rate Fraction of Inspir ed Oxygen Hydration adequate: Yes Nausea and vomiting: No Pain level: 1 Mental status: Baseline
[2022-02-08] MEDS: vancomycin 1,000 MG in sodium chloride 0.9% 250 ML 200 MG IV (17:07)
[2022-02-08 17:09] LABS: Glucose Point of Care 181 mg/dL (70-110)
[2022-02-08 21:28] LABS: Glucose Point of Care 301 mg/dL (70-110)
[2022-02-08] MEDS: insulin glargine 100 units/1 mL 20 UNIT SUBCUT (21:34)
[2022-02-09] VITALS (12 sets, daily range): BP systolic 120–163; BP diastolic 68–90; PULSE 90–106; RESP 15–18; TEMP 36.8–37.2; O2SAT 92–95
[2022-02-09] MEDS: morphine IR 15 mg Tablet PO ×4 (01:33→22:32)
[2022-02-09 01:36] LABS: Basophils # 0.1 10^3/uL (0.0-0.1); Basophils % 0.6 %; Eosinophils # 0.2 10^3/uL (0.0-0.8); Eosinophils % 2.4 %; Hematocrit 43.6 % (42.0-52.0); Hemoglobin 14.6 g/dL (11.7-16.6); Lymphocytes % 21.5 %; Mean Corpuscular HGB Conc 33.5 g/dL (30.0-36.0); Mean Corpuscular Hemoglobin 26.8 pg (28.0-34.0); Mean Corpuscular Volume 80.1 fl (80-94); Mean Platelet Volume 10.5 fL (7.4-10.4); Monocytes # 0.8 10^3/uL (0.2-0.9); Neutrophils # 6.34 10^3/uL (1.8-7.7); Neutrophils % 67.2 %; Nucleated Red Blood Cells % 0 %; Platelet Count 235 10^3/cmm (130-400); Red Blood Count 5.44 10^6/uL (4.1-5.3); Red Cell Distribution Width 12.8 % (12.1-15.1); White Blood Count 9.5 10^3/uL (4.0-10.0)
[2022-02-09 02:00] LABS: Blood Urea Nitrogen 8 mg/dL (6-20); Calcium 9.4 mg/dL (8.5-10.5); Carbon Dioxide 30 mmol/L (22-29); Chloride 96 mmol/L (98-107); Glomerular Filtration Rate 104.5 mL/min (90-130); Glucose 248 mg/dL (65-115); Osmolality Calculated 285 mOsm/kg (285-295); Sodium 134 mmol/L (136-145)
[2022-02-09 02:01] LABS: Vancomycin Trough 10.4 ug/mL (10-15)
[2022-02-09 02:04] LABS: Anion Gap 12.3 (5-19); Potassium 4.3 mmol/L (3.5-5.1)
[2022-02-09] MEDS: vancomycin 1,000 MG in sodium chloride 0.9% 250 ML 250 MG IV ×3 (02:05→17:15)
[2022-02-09] MEDS: piperacillin-tazobactam 3.375 GM in sodium chloride 0.9% (plus) 50 ML IV ×3 (05:02→22:33)
[2022-02-09 06:14] LABS: Glucose Point of Care 228 mg/dL (70-110)
--- NOTE | 2022-02-09 07:34 | P.PN_ITS ---
Subjective Subjective: 1 day status post right foot incision and debridement. Experiencing some increased pain to the right foot states that this is managed. No strikethrough drainage at the dressing. No acute events overnight. Tolerating normal diet. Patient denies any subjective nausea, vomiting, fever, chills, shortness of breath or chest pain. Vitals/I&O/Wt Last Vital Signs Temp 98.4 F 02/09/22 04:00 Pulse 90 02/09/22 07:33 Resp 16 02/09/22 07:33 BP 126/78 02/09/22 04:00 Pulse Ox 95 02/09/22 07:33 O2 Del Method 02/09/22 07:33 02/08/22 02/09/22 02/09/22 22:59 06:59 14:59 Intake Total 1962 / 2262 640 / 2902 Output Total 350 / 355 750 / 1105 Balance 1612 / 1907 -110 / 1797 Weight last 48 hrs Weight 190 lb 11.2 oz Weight 1992 lb Physical Exam Narrative: GENERAL: Patient is alert and oriented ?3 and in no acute distress.? The following is a focused bilateral lower extremity exam. VASCULAR: Dorsalis pedis palpable +2, posterior tibial arteries +2.? Capillary refill time less than 3 seconds to the distal hallux bilaterally. Calf is supple and nontender proximally and distally.? Focal edema to the right dorsal forefoot. NEUROLOGICAL: Protective sensation diminished to the lower extremities. DERMATOLOGICAL: Intact drain, periwound erythema to the right forefoot, no purulence. MUSCULOSKELETAL: Tenderness at right forefoot, no soft tissue crepitus. Data : 02/09/22 01:30 02/09/22 01:30 Micro: Microbiology 02/07/22 17:15 Gram Stain - Final Toe - Toe Wound Culture - Preliminary A&P Assessment and plan (1) Cellulitis of right foot: (2) Diabetic peripheral neuropathy associated with type 2 diabetes mellitus: (3) Non-pressure chronic ulcer of other part of right foot with necrosis of muscle: Plan Full 2-month history of nonhealing wound at the right fourth webspace presents with cellulitis and failure to improve on outpatient antibiotics which have included Rocephin, Augmentin and cephalexin prescribed through the emergency department as well as primary care. 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 Incision and debridement with deep tissue cultures taken intraoperatively 02/08/2022. Incisional Yanely drain intact Small amount of clinical improvement appreciated with decreased erythema, no purulence at the incision. Intraoperative cultures as well as cultures taken in the emergency department pending Recommend continuing empiric IV antibiotics, on Vanco Zosyn MRI shows abscess to the dorsum of the right forefoot, concerning for early osteomyelitis to the right fourth metatarsal this is appreciated on T2 with hyperintensity, no hypointensity on T1. Will continue to monitor clinical improvement on empiric antibiotics status postdebridement Sed rate not indicative of osteomyelitis, clinically should he have improvement over the next day or 2 would like to discharge with plan for 6 weeks antibiotics, would hope for oral option, will await cultures and sensitivities. Podiatry will follow. Attestations Medical Necessity Statement*: Cellulitis with abscess right foot Coding Level of Care Code Acute Php [employer] Developer for pito Dias Diagnoses Cellulitis of right foot L03.115 Diabetic peripheral neuropathy associated with type 2 diabetes mellitus E11.42 Non-pressure chronic ulcer of other part of right foot with necrosis of muscle L97.513
[2022-02-09] MEDS: insulin lispro 100 unit/1 mL SUBCUT ×3 (08:44→17:15)
[2022-02-09] MEDS: sennosides-docusate Tablet 1 TAB PO (08:45)
[2022-02-09 11:28] LABS: Glucose Point of Care 156 mg/dL (70-110)
--- NOTE | 2022-02-09 11:54 | P.PN_ITS ---
Subjective Subjective: Dr. Casillas has recommended observing him on IV antibiotics for today He has been afebrile no signs of sepsis Patient is on Zosyn active complaints Vitals/I&O/Wt Last Vital Signs Temp 98.8 F 02/09/22 07:53 Pulse 91 02/09/22 07:53 Resp 16 02/09/22 08:44 BP 120/68 02/09/22 07:53 Pulse Ox 94 02/09/22 08:44 O2 Del Method 02/09/22 07:53 02/08/22 02/09/22 02/09/22 22:59 06:59 14:59 Intake Total 1962 / 2262 640 / 2902 660 / 660 Output Total 350 / 355 750 / 1105 Balance 1612 / 1907 -110 / 1797 660 / 660 Weight last 48 hrs Weight 86.5 kg Weight 903.556 kg Physical Exam Narrative: Patient's foot is wrapped with a clear clean dressing wrapped with Geoffrey Patient is awake and alert Nonfocal neuro exam S1, S2 Currently on room air No active complaints Nonfocal neuro exam Data : 02/09/22 01:30 02/09/22 01:30 Micro: Microbiology 02/07/22 17:15 Gram Stain - Final Toe - Toe Wound Culture - Preliminary A&P Assessment and plan (1) Foot abscess, right: (2) Non-pressure chronic ulcer of other part of right foot with necrosis of muscle: (3) Diabetic peripheral neuropathy associated with type 2 diabetes mellitus: (4) Cellulitis of right foot: (5) Impaired glucose tolerance: (6) Abscess of right foot excluding toes: Plan Foot abscess status post I&D Postop day 0 Dr. Jordan recommended watching on IV antibiotics for now Patient will most likely will go home on 14-week regimen of Augmentin or doxycycline Currently no active sepsis If afebrile Opioid allow bladder to Currently full code On DVT prophylaxis Attestations Medical Necessity Statement*: Discharge tomorrow Time Spent in Patient Care: 30 Coding Level of Care Code Acute [employer] Center Receptionist for g Fwd Diagnoses Foot abscess, right L02.611 Non-pressure chronic ulcer of other part of right foot with necrosis of muscle L97.513 Diabetic peripheral neuropathy associated with type 2 diabetes mellitus E11.42 Cellulitis of right foot L03.115 Impaired glucose tolerance R73.02 Abscess of right foot excluding toes L02.611
[2022-02-09] MEDS: enoxaparin 40 mg/0.4 mL Syringe SUBCUT (12:04)
[2022-02-09 16:54] LABS: Glucose Point of Care 204 mg/dL (70-110)
[2022-02-09] MEDS: insulin glargine 100 units/1 mL 20 UNIT SUBCUT (21:13)
[2022-02-09 21:22] LABS: Glucose Point of Care 227 mg/dL (70-110)
[2022-02-10] VITALS (7 sets, daily range): BP systolic 111–160; BP diastolic 72–98; PULSE 96–101; RESP 16–19; TEMP 36.5–37.1; O2SAT 93–98
[2022-02-10] MEDS: vancomycin 1,000 MG in sodium chloride 0.9% 250 ML 250 MG IV ×2 (02:49→11:11)
[2022-02-10 04:54] LABS: Basophils # 0.1 10^3/uL (0.0-0.1); Basophils % 0.8 %; Eosinophils # 0.2 10^3/uL (0.0-0.8); Eosinophils % 2.7 %; Hematocrit 41.1 % (42.0-52.0); Hemoglobin 13.4 g/dL (11.7-16.6); Lymphocytes # 1.8 10^3/uL (0.8-4.8); Lymphocytes % 30.6 %; Mean Corpuscular HGB Conc 32.6 g/dL (30.0-36.0); Mean Corpuscular Volume 82.9 fl (80-94); Mean Platelet Volume 10.4 fL (7.4-10.4); Monocytes # 0.8 10^3/uL (0.2-0.9); Monocytes % 13.8 %; Neutrophils # 3.12 10^3/uL (1.8-7.7); Neutrophils % 51.8 %; Nucleated Red Blood Cells % 0 %; Platelet Count 180 10^3/cmm (130-400); Red Blood Count 4.96 10^6/uL (4.1-5.3); Red Cell Distribution Width 12.6 % (12.1-15.1)
[2022-02-10 05:16] LABS: Anion Gap 14.7 (5-19); Blood Urea Nitrogen 12 mg/dL (6-20); Calcium 8.7 mg/dL (8.5-10.5); Carbon Dioxide 26 mmol/L (22-29); Chloride 99 mmol/L (98-107); Glucose 148 mg/dL (65-115); Osmolality Calculated 285 mOsm/kg (285-295); Potassium 3.7 mmol/L (3.5-5.1); Sodium 136 mmol/L (136-145)
[2022-02-10] MEDS: piperacillin-tazobactam 3.375 GM in sodium chloride 0.9% (plus) 50 ML IV (05:41)
--- NOTE | 2022-02-10 06:06 | PM.PN ---
Subjective Subjective: 2 days status post right foot incision and debridement. Experiencing some increased pain to the right foot states that this is managed. No strikethrough drainage at the dressing. No acute events overnight. Tolerating normal diet. Patient denies any subjective nausea, vomiting, fever, chills, shortness of breath or chest pain. Vitals/I&O/Wt Last Vital Signs Temp 97.7 F 02/10/22 04:00 Pulse 96 02/10/22 04:00 Resp 17 02/10/22 04:00 BP 111/72 02/10/22 04:00 Pulse Ox 93 02/10/22 04:00 O2 Del Method 02/09/22 21:07 02/09/22 02/09/22 02/10/22 14:59 22:59 06:59 Intake Total 900 / 900 780 / 1680 1260 / 2940 Output Total 0 / 0 Balance 900 / 900 780 / 1680 1260 / 2940 Physical Exam Narrative: GENERAL: Patient is alert and oriented ?3 and in no acute distress.? The following is a focused bilateral lower extremity exam. VASCULAR: Dorsalis pedis palpable +2, posterior tibial arteries +2.? Capillary refill time less than 3 seconds to the distal hallux bilaterally. Calf is supple and nontender proximally and distally.? Focal edema to the right dorsal forefoot. NEUROLOGICAL: Protective sensation diminished to the lower extremities. DERMATOLOGICAL: Intact drain, periwound erythema to the right forefoot, no purulence. No proximal lymphangitic streaking MUSCULOSKELETAL: Tenderness at right forefoot, no soft tissue crepitus. Data : 02/10/22 04:19 02/10/22 04:19 Micro: Microbiology 02/08/22 14:31 Anaerobic Culture - Preliminary Other Source 02/07/22 17:15 Gram Stain - Final Toe - Toe Wound Culture - Preliminary A&P Assessment and plan (1) Cellulitis of right foot: (2) Diabetic peripheral neuropathy associated with type 2 diabetes mellitus: (3) Non-pressure chronic ulcer of other part of right foot with necrosis of muscle: Plan Full 2-month history of nonhealing wound at the right fourth webspace presents with cellulitis and failure to improve on outpatient antibiotics which have included Rocephin, Augmentin and cephalexin prescribed through the emergency department as well as primary care. 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 Incision and debridement with deep tissue cultures taken intraoperatively 02/08/2022. Planning, cultures show mixed juan r, given his clinical picture and history would like to send home on broad-spectrum oral antibiotic coverage Doxycycline 100 mg twice daily 14 days Augmentin 875/125 mg twice daily 14 days Metronidazole 500 mg twice daily 14 days Take antibiotics with food, encouraged probiotic use as well. Dispensed postop shoe to be worn when ambulating, overall decrease activities and elevate right foot above the hip Patient to keep the right foot clean and dry, no running water or soaking to the right foot at this time Patient to perform daily Betadine wet-to-dry dressing changes, patient educated on this technique, he is confident in being able to perform this daily himself. Follow-up in podiatry clinic with Dr. Jordan 2:15 PM 02/13/[address] Jordan with any questions or concerns cell phone [phone] call or text Attestations Medical Necessity Statement*: Cellulitis Coding Level of Care Code Acute [employer] for [facility] Fwd Diagnoses Cellulitis of right foot L03.115 Diabetic peripheral neuropathy associated with type 2 diabetes mellitus E11.42 Non-pressure chronic ulcer of other part of right foot with necrosis of muscle L97.513
[2022-02-10 06:28] LABS: Glucose Point of Care 127 mg/dL (70-110)
[2022-02-10] MEDS: HYDROmorphone 1 mg/mL INJ 1 mL 0.2 MG IVP (07:43)
--- NOTE | 2022-02-10 10:27 | P.DS_ITS ---
Discharge Providers Date of Admission: 02/07/22 18:19 Date of Discharge: February 10, 2022 Attending Provider at Admission: Carine Candelario MD Attending Provider at Discharge: Carine Candelario MD Primary Care Provider: Brooke Del Real MD Diagnoses at Discharge Discharge Diagnosis (1) Foot abscess, right: Status: Acute (2) Non-pressure chronic ulcer of other part of right foot with necrosis of muscle: Status: Acute (3) Diabetic peripheral neuropathy associated with type 2 diabetes mellitus: Status: Acute (4) Cellulitis of right foot: Status: Acute (5) Impaired glucose tolerance: Status: Acute (6) Abscess of right foot excluding toes: Status: Acute Reason for Visit Reason for Visit: injury to foot, sent by wound clinic Hospital Course Hospital Course 46-year male who crushed his foot about 2 months ago when he got his foot trapped between 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 At the time of admission he was diagnosed with cellulitis of foot, it was showing tunneling hence MRI was requested which showed abscess. Dr. Jordan was consulted at the time of admission who did I&D, with excision of wound with primary closure on 02/08. Patient was kept in the hospital for IV antibiotic because of erythematous wound edges. He remained afebrile no signs of sepsis or bacteremia, no leukocytosis. Pain remained within tolerable range. Dr. Jordan has recommended outpatient 2 weeks of antibiotics with close follow-up. He has been counseled not to go back to his work for at least 4 to 5 weeks His hemoglobin A1c is 11, I will give him Lantus 20 units along with Premeal 2 units Humalog along with metformin his GFR is 122 creatinine .7 Physical Exam Narrative: Patient is awake and alert Awake S1, S2 Currently on room air Eating breakfast Watching television Dorsalis pedis pulses 2+ posterior tibial 2+ Diminished sensation in lower extremities Periwound erythema forefoot without any purulent drainage Tender right forefoot No crepitation Discharge Data Studies Completed and Pending Completed Studies During Hospitalization Category Date Time Status XR foot RT min 3V* [id number] Stat Exams 02/07/22 16:24 Completed MR foot RT wo/w con [id number] Routine MRI 02/08/22 07:06 Completed Pending at discharge Category Date Time Status Anaerobic Culture Routine Lab 02/08/22 14:31 Results Wound Culture and Gram Stain Routine Lab 02/08/22 14:31 Received Wound Culture and Gram Stain Stat Lab 02/07/22 17:15 Results Radiology Impressions Foot X-Ray 02/07/22 16:24 IMPRESSION: No acute findings. Unremarkable soft tissues no foreign body Foot MRI 02/08/22 07:06 IMPRESSION: 1. Small amount of edema and enhancement involving the head of the 4th metatarsal suspicious for osteomyelitis. 2. Dorsal foot ulceration between the 4th and 5th phalanges extending posteriorly with a dorsal fistulous tract. Complex internal fluid with peripheral enhancement suspicious for phlegmon/abscess. This does not appear easily drainable. This measures approximately 1.6 x 1.6 x 0.6 cm AP by transverse by craniocaudal. This extends posteriorly along the extensor compartment retinaculum. 3. Associated inflammatory stranding and edema with enhancement in the dorsal foot subcutaneous soft tissues extending into the intertarsal spaces consistent with cellulitis with soft tissue infection. 4. Small focus of edema and enhancement in the proximal 3rd metatarsal nonspecific but may represent degenerative subchondral cystic change, possibly healing fracture or contusion versus small intraosseous lesion. This can be followed up with CT to assess for change. Laboratory Results WBC 6.0 10^3/uL (4.0-10.0) 02/10/22 04:19 RBC 4.96 10^6/uL (4.1-5.3) 02/10/22 04:19 Hgb 13.4 g/dL (11.7-16.6) 02/10/22 04:19 Hct 41.1 % (42.0-52.0) L 02/10/22 04:19 MCV 82.9 fl (80-94) 02/10/22 04:19 MCH 27.0 pg (28.0-34.0) L 02/10/22 04:19 MCHC 32.6 g/dL (30.0-36.0) 02/10/22 04:19 RDW 12.6 % (12.1-15.1) 02/10/22 04:19 Plt Count 180 10^3/cmm (130-400) 02/10/22 04:19 MPV 10.4 fL (7.4-10.4) 02/10/22 04:19 Neut % (Auto) 51.8 % 02/10/22 04:19 Lymph % (Auto) 30.6 % 02/10/22 04:19 [place] % (Auto) 13.8 % 02/10/22 04:19 Eos % (Auto) 2.7 % 02/10/22 04:19 Baso % (Auto) 0.8 % 02/10/22 04:19 Neut # (Auto) 3.12 10^3/uL (1.8-7.7) 02/10/22 04:19 Lymph # (Auto) 1.8 10^3/uL (0.8-4.8) 02/10/22 04:19 [place] # (Auto) 0.8 10^3/uL (0.2-0.9) 02/10/22 04:19 Eos # (Auto) 0.2 10^3/uL (0.0-0.8) 02/10/22 04:19 Baso # (Auto) 0.1 10^3/uL (0.0-0.1) 02/10/22 04:19 Nucleated RBC % (auto) 0 % 02/10/22 04:19 Nucleated RBCs # 0.0 /100WBC 02/10/22 04:19 ESR 9 mm/hr (0-10) 02/07/22 16:41 D-Dimer 0.59 ug/mIFEU (0-0.59) 02/07/22 16:41 Sodium 136 mmol/L (136-145) 02/10/22 04:19 Potassium 3.7 mmol/L (3.5-5.1) 02/10/22 04:19 Chloride 99 mmol/L (98-107) 02/10/22 04:19 Carbon Dioxide 26 mmol/L (22-29) 02/10/22 04:19 Anion Gap 14.7 (5-19) 02/10/22 04:19 BUN 12 mg/dL (6-20) 02/10/22 04:19 Creatinine 0.7 mg/dL (0.7-1.2) 02/10/22 04:19 GFR Calculation 122.0 mL/min (90-130) 02/10/22 04:19 Glucose 148 mg/dL (65-115) H 02/10/22 04:19 POC Glucose 127 mg/dL (70-110) H 02/10/22 06:13 Estimat Average Glucose 292 02/08/22 05:49 Hemoglobin A1c 11.8 % (4.0-6.0) H 02/08/22 05:49 Calculated Osmolality 285 mOsm/kg (285-295) 02/10/22 04:19 Lactic Acid 1.9 mmol/L (0.5-2.2) 02/07/22 16:41 Calcium 8.7 mg/dL (8.5-10.5) 02/10/22 04:19 Magnesium 1.9 mg/dL (1.7-2.3) 02/08/22 05:49 Total Bilirubin 0.2 mg/dL (0.15-1.2) 02/07/22 16:41 AST 11 U/L (0-40) 02/07/22 16:41 ALT 12 U/L (0-41) 02/07/22 16:41 Alkaline Phosphatase 112 U/L (40-130) 02/07/22 16:41 C-Reactive Protein 14.9 mg/L (0.0-4.9) H 02/08/22 05:49 Total Protein 7.1 g/dL (6.6-8.7) 02/07/22 16:41 Albumin 4.1 g/dL (3.5-5.2) 02/07/22 16:41 Globulin 3.0 g/dL (1.3-4.6) 02/07/22 16:41 Procalcitonin 0.05 ng/mL (0-0.5) 02/07/22 16:41 TSH 0.57 uIU/mL (0.27-4.20) 02/07/22 16:41 Vancomycin Trough 10.4 ug/mL (10-15) 02/09/22 01:30 Vitals Last Vital Signs Temp 98.0 F 02/10/22 07:56 Pulse 97 02/10/22 09:03 Resp 18 02/10/22 09:03 BP 160/98 02/10/22 07:56 Pulse Ox 96 02/10/22 09:03 O2 Del Method 02/10/22 09:03 Discharge Plan Discharge Patient Disposition: Home Condition: Stable Prescriptions: New (DME) blood-glucose meter [Accu-Chek Guide Glucose Meter] Misc See Rx Instructions .Route Qty: 1 0RF Rx Instructions: As directed (DME) Accu-Chek Guide test strips Strip See Rx Instructions .Route Qty: 100 3RF Rx Instructions: As directed (DME) lancets [Accu-Chek Fastclix Lancet Drum] Misc See Rx Instructions .Route Qty: 200 3RF Rx Instructions: As directed sennosides-docusate sodium [Stool Softener-Laxative] 8.6-50 mg Tablet 1 tab PO DAILY Qty: 30 0RF doxycycline hyclate 100 mg tablet 100 mg PO BID 14 Days Qty: 28 0RF insulin lispro [Humalog KwikPen Insulin] 100 unit/mL insulin pen 2 unit SUBCUT AC Qty: 15 2RF insulin glargine 100 unit/mL Solution 20 unit SUBCUT BEDTIME Qty: 15 3RF metronidazole 500 mg Tablet 500 mg PO TID Qty: 30 0RF amoxicillin-pot clavulanate 875-125 mg tablet 1 tab PO BID Qty: 28 0RF metformin 1,000 mg tablet extended release 24hr 1,000 mg PO DAILY Qty: 90 3RF Continued mupirocin 2 % ointment 1 applic topical BID Qty: 22 0RF hydrocodone-acetaminophen 5-325 mg tablet 1 tab PO Q6H PRN (Reason: pain) 7 Days Qty: 20 0RF Discontinued levofloxacin 750 mg tablet 750 mg PO DAILY Qty: 10 0RF Discharge Orders: Discharge Order (Routine); Ordered 02/10/22 Ordered By: Carine Candelario Referrals: Bandar Jordan DPM [Physician] - 02/13/22 Brooke Del Real MD [Primary Care Provider] - Patient Instructions: Opioid Safety Patient's Health Concerns: For your diabetic foot ulcer He will need 14 days of Augmentin and 14 days of doxycycline 10 days of metronidazole For your pain you can take opioids along bowel regimen to avoid constipation Follow-up with Dr. Jordan on Sunday Discharge Attestations Time Spent in Discharge Care*: less than 30 min Quality Metrics Clinical Quality Measures [ No reported AMI, CVA or VTE this stay] Coding Level of Care Code Acute Chg FW DC note Diagnoses Foot abscess, right L02.611 Non-pressure chronic ulcer of other part of right foot with necrosis of muscle L97.513 Diabetic peripheral neuropathy associated with type 2 diabetes mellitus E11.42 Cellulitis of right foot L03.115 Impaired glucose tolerance R73.02 Abscess of right foot excluding toes L02.611
[2022-02-10 10:58] LABS: Glucose Point of Care 243 mg/dL (70-110)
[2022-02-10] MEDS: insulin lispro 100 unit/1 mL SUBCUT (12:46)
--- NOTE | 2022-02-10 13:20 | PC.NURSE ---
Discharge instructions given to patient, IV removed, medications sent quentin beecrra. Patient educated on diabetes, injections, medications, and wound care. Written and verbal understanding.
== END 2022-02-10 13:20 | disposition home or self-care (01) | DRG 623 ==
LOC: ER 18:31 → MEDSURG 19:07
PROVIDERS: Physician Assistant; Podiatrist Foot & Ankle Surgery; Admitting Provider Internal Medicine; Emergency Provider Family Medicine; PCP Family Medicine; Visit Provider Internal Medicine
PROC: 0LBV0ZZ Excision of Right Foot Tendon, Open Approach (ICD-10-PCS; principal; 2022-02-08 14:00)
DX: E11.621 Type 2 diabetes mellitus with foot ulcer (principal); L02.611 Cutaneous abscess of right foot; L03.115 Cellulitis of right lower limb; L97.513 Non-pressure chronic ulcer of other part of right foot with necrosis of muscle; E11.42 Type 2 diabetes mellitus with diabetic polyneuropathy
CPT/HCPCS: 36415; 36416; 73630; 73720; 80048; 80053; 80202; 82962; 83036; 83605; 83735; 84145; 84443; 85025; 85378; 85651; 86140; 87070; 87075; 87077; 87205; 96365; 96372; 96375; 96376; 97760; 99285; A9577; J1170; J1650; J1815; J2405; J2543; J2704; J3010; J3370; J3490; J7030; J7050; L3260

== ENCOUNTER → 2022-02-13 14:10 | Outpatient (BNVA) | payer OTHER, BC, SELFPAY | PROVIDERS: PCP Family Medicine; Visit Provider Podiatrist Foot & Ankle Surgery | DX: L97.513 Non-pressure chronic ulcer of other part of right foot with necrosis of muscle (principal); Z98.890 Other specified postprocedural states; L03.115 Cellulitis of right lower limb; L02.611 Cutaneous abscess of right foot; Z79.4 Long term (current) use of insulin; Z79.84 Long term (current) use of oral hypoglycemic drugs; E11.621 Type 2 diabetes mellitus with foot ulcer | CPT/HCPCS: 73630 ==

== ENCOUNTER → 2022-04-10 11:55 | Outpatient (BNVA) | payer BC, SELFPAY | PROVIDERS: PCP Family Medicine; Visit Provider Nurse Practitioner Family | DX: R05.9 Cough, unspecified (principal); J06.9 Acute upper respiratory infection, unspecified | CPT/HCPCS: 80053 ==

== ENCOUNTER 2022-04-12 19:28 | Inpatient (IN) | payer BC, SELFPAY ==
[2022-04-12] VITALS (36 sets, daily range): BP systolic 122–156; BP diastolic 75–103; PULSE 0–122; RESP 18–33; TEMP 35.6; O2SAT 74–95; BMI 28.8
--- NOTE | 2022-04-12 | XACV_ITS ---
Exam Room: .ROOM02 Ht: 147 cm Wt: 73 kg BSA: 1.76 m2 Gender: Male : 1975 Exam Priority: Routine Procedure(s): Procedure Description: Diagnostic procedure Procedure Description: PCI procedure Procedure Description: Left Heart Catheterization Procedure Description: Left ventriculography Procedure Description: PTCA Procedure Description: Coronary Angiography Diagnostic Cath Status: Emergency Diagnostic Findings * Patient presented with an unusual set of symptoms that primarily suggested congestive heart failure. He had paroxysmal nocturnal dyspnea and orthopnea. His EKG however was abnormal with ST elevation in the lateral precordial leads, inferior leads. He was not complaining of chest pain however but had been ill for approximately 1 week. He has diabetes which is out of control and untreated. * Angiography reveals a eccentric distal left main narrowing about 10%. Circumflex is a fairly large vessel and is normal with the exception of some minor narrowing of about 10 to 20% in the proximal first obtuse marginal branch. The LAD is a very small vessel which is probably a 2 mm vessel throughout its entire course. In the midportion just past the first diagonal and the first septal there is a significant narrowing. Following this there is another diagonal and another septal and then the vessel continues toward the apex. The right coronary artery is occluded in the midportion. The right coronary artery is also a small vessel and tapers to an even smaller artery as it reaches the posterior descending artery. It is probably a 2.5 mm vessel.. PCI Status: Urgent PCI LVEF Assessed: Yes PCI Indication: STEMI - Stable (> 12 hrs Sx) Interventional Findings * The artery is quite small on the right. Upon placing the guide, it appears the guide is larger than the artery itself. This caused the patient to have bradycardia, heart block and hypotension. I placed a wire through the occlusion in the midportion. The artery is severely diffusely diseased distally and is tiny. I positioned the guide just outside the ostium of the artery in the aorta so flow could continue. I quickly performed plain old balloon angioplasty of the mid right coronary artery which opened the vessel beyond the acute margin down toward the ostium of the posterior descending artery. The artery is open and exhibits good flow so I chose not to stent the vessel.. Decision for PCI with Surgical Consult: No PCI for Multi-vessel Disease: No Conclusions 1. It appears as though he has had a remote anterior wall FL from the appearance of the mid LAD and the appearance of the anterior wall and apex on left ventriculography. The right coronary artery lesion was the more acute lesion however this may have occurred anytime within the last week from when he became ill. This resulted in significant enough left ventricular dysfunction to cause congestive heart failure and mild mitral regurgitation. Recommendations * Lasix for removal of excess fluid. AMBER inhibitor, beta-marialuisa, statin, Aldactone, aspirin and Plavix. Delay institution of the beta-marialuisa until heart failure is compensated. Once he is compensated and stable, stress testing would be appropriate to assess the degree of ischemia in the distribution of the LAD and perhaps a viability evaluation. We will need an echo now and then again in 45 to 90 days. Consideration of defibrillator down the line. Interventional RX Recommendation: PCI w/o planned CABG Diagnostic RX Recommendation: PCI w/o planned CABG Anticoagulation: Heparin Ventriculography Ejection Fraction: 20.0 % Left Ventriculography Findings: * 1+ mitral regurgitation. Pressures Phase:Rest AO : 108 / 75 ( 88 ) @ 5:17:41 PM 99 / 69 ( 81 ) @ 5:17:41 PM 105 / 47 ( 69 ) @ 5:17:41 PM 42 / 38 ( 40 ) @ 5:17:41 PM 87 / 74 ( 81 ) @ 5:17:41 PM LV : 119 / 0 / 34 @ 5:17:41 PM 109 / 7 / 19 @ 5:17:41 PM 109 / 7 / 19 @ 5:17:41 PM Valves Phase:DefaultPhase AV : 11.0 @ 11:17:41 PM AV Mean Gradient: 8.0 @ 11:17:41 PM Clinical Evaluation EBL: 5mL-10mL Procedural Details Procedure Consent Obtained. Admit Source: Emergency department. Pre-Procedure Time Out. Identified patient by full name and date of as verbalized by the patient/guarantor. Does the consent match the physician's order: Yes. Accurate & Complete Informed Consent: Yes. Inpatient/Outpatient History & Physical on Chart: Yes. If H&P is completed, is and addenduem needed: N/A; If yes, is the addendum complete: N/A. Visualize and Verify Site with Patient/Guarantor: N/A. Relevant Radiology Images available: N/A. Pre-op teaching completed and patient verbalized understanding. The risks, benefits, and alternatives of sedation and/or procedure were discussed by physician. The patient agrees to continue. Procedure started. [facility] Clinical Fraility Score: 3: Managing Well. Strip Tank Tender Indications: Worsening Angina. Chest Pain Symptom Assessment: Typical Angina Symptoms. Correct patient, site and procedure confirmed by cath team. Current diagnosis: NSTEMI. PERRLA. Strong, equal hand enrollment management coordinator bilaterally. Lungs clear x 5 lobes. IV Site on Arrival: 20 gauge in the left anticubital. IV Fluids: 0.9% NaCl at KVO. 0 mL infused prior to orthodontic laboratory technician. Pre Procedural Pulses: bilateral dorsalis pedis was 1+. Oxygen started at 2liters/min via nasal canula. right groin was prepped with chloroprep then draped in the usual sterile fashion. Baseline sample Acquired. HR: 123 BPM. Physician notified. Physician arrived. Physician scrubbed in. Immediate Pre-Procedure Time Out. Correct Patient: Yes; Correct Procedure: Yes; Correct Site: Yes; Correct Patient Position: Yes; Correct Supplies: Yes; Dried Flammable Prep: Yes; Blood Products Available: N/A;. Lidocaine 1% infiltrated to the right groin. Arterial access obtained. A 5 syrian JL4 catheter in over wire. Multiple views taken of left coronary artery. Catheter removed over the standard wire. A 5 syrian JR4 catheter in over wire. Multiple views taken of right coronary artery. Catheter removed over the standard wire. A 5 syrian Angled Pig catheter in over wire. EDP Sample taken: LV 119/-1,34; HR: 92 BPM; SpO2: 86%. LV gram performed in WHIPPLE @ 10 mL/second for a total of 30 mL. EDP Sample taken: LV 109/7,19; HR: 112 BPM; SpO2: 87%. Pullback taken: LV 109/7,19; AO 99/69(81); Mean: 8mmHg, Peak to Peak: 11mmHg, SEP: 22sec/min; HR: 112 BPM; SpO2: 87%. Catheter out. Sheath upsized to a 6 Fr. 6 syrian JR 4 guide catheter was inserted over the wire. AP Pads applied to pt chest. Flint guidewire was advanced through the guide catheter to lesion in the mid RCA. Balloon inserted to lesion in the mid RCA. Inflation number : 1 A AB TREK 2.50X30 RX BALLOON was prepped and advanced across the Mid RCA , then inflated to 8 GRACIE for 0:20 seconds. Results checked. Balloon, wire, and guide catheter out. A Suture was successful obtaining hemostatsis at the Right Femoral artery insertion site. Complications: none. Estimated blood loss: 5mL-10mL. Responsiveness - Normal response to verbal stimuli; alert and oriented, PERRLA. Airway - Unaffected, no intervention required; spontaneous ventilation. Circulation: W/N/L, pulses unchanged. Nausea/Vomiting: No. Procedure completed. Total IV fluids: 72 mL. Medication's Wasted: Other = Versed 1 mg. Medication's Wasted: Other = Fentanyl 25 mcg. PERRLA. Strong, equal hand enrollment management coordinator bilaterally. No VTE prophylaxis required. Post Procedure: Pulses reassessed and unchanged. Post-op diagnosis: Obstructive CAD. Patient transferred by bed to 1st floor. Vital chart was stopped. Access Site Site: Right Femoral artery Sheath Size: 5 Fr Hemostasis Method: Suture Hemostasis Success: Successful Procedure Medications Start: 10:28 PM Stop: 10:28 PM Medication: Versed Amount: 2 mg Route: I.V. Start: 10:28 PM Stop: 10:28 PM Medication: Fentanyl Amount: 25 mcg Route: I.V. Start: 10:28 PM Stop: 10:28 PM Medication: Fentanyl Amount: 25 mcg Route: I.V. Start: 10:45 PM Stop: 10:45 PM Medication: Versed Amount: 1 mg Route: I.V. Start: 11:03 PM Stop: 11:03 PM Medication: Lasix (furosemide) Amount: 40 mg Route: I.V. I, the attending physician, have reviewed and verified all procedure medications. Yes, all medications given per verbal order Report Signatures Finalized by Dr. Luciano Dotson MD on 04/13/2022 09:30 AM
--- NOTE | 2022-04-12 19:34 | XRR_ITS ---
PROCEDURE INFORMATION: Exam: XR Chest Exam date and time: 04/12/2022 7:53 PM Age: 46 years old Clinical indication: Shortness of breath; Additional info: SOB TECHNIQUE: Imaging protocol: Radiologic exam of the chest. Views: 1 view. COMPARISON: No relevant prior studies available. FINDINGS: Lungs: The lung bases are suboptimally assessed due to technique however the upper lungs are clear of focal consolidation. There is poor inspiration with probable patchy left basilar opacity suggesting atelectasis versus developing pneumonia. Follow-up should be obtained. Pleural spaces: Unremarkable. No pleural effusion. No pneumothorax. Heart/Mediastinum: Cardiac silhouette appears normal in size. No obvious vascular congestion. Bones/joints: No acute osseous findings. Other findings: Single view was submitted. XR/XR chest 1V portable [id number] IMPRESSION: Patchy left basilar opacity. See discussion above.
--- NOTE | 2022-04-12 19:59 | ECG_ITS ---
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 Measurements Intervals [place] Rate: 123 P: 67 VT: 140 QRS: 54 QRSD: 84 T: 32 QT: 294 QTc: 422 Interpretive Statements SINUS TACHYCARDIA LOW QRS VOLTAGE IN EXTREMITY LEADS [QRS DEFLECTION < 0.5 mV IN LIMB LEADS] ANTEROSEPTAL MYOCARDIAL INFARCTION , OF INDETERMINATE AGE [40+ ms Q WAVE IN V1-V4] MARKED ST ELEVATION, CONSIDER LATERAL INJURY [MARKED ST ELEVATION W/O NORMALLY INFLECTED T-WAVE IN I/aVL/V5/V6] MARKED ST ELEVATION, CONSIDER INFERIOR INJURY [MARKED ST ELEVATION W/O NORMALLY INFLECTED T-WAVE IN II/aVF] ACUTE [place] No previous ECG available for comparison Electronically Signed On 04-14-2022 13:51:05 DIRECTOR OF EARLY CHILDHOOD EDUCATION by Rakan Herndon M.D. [email or web address]/store/[id number]
[2022-04-12] MEDS: aspirin 81 mg Chew Tablet 324 MG PO (20:08)
[2022-04-12 20:11] LABS: Basophils % 0.3 %; Eosinophils # 0.1 10^3/uL (0.0-0.8); Eosinophils % 0.3 %; Hemoglobin 12.6 g/dL (11.7-16.6); Lymphocytes # 2.6 10^3/uL (0.8-4.8); Lymphocytes % 16.8 %; Mean Corpuscular HGB Conc 33.2 g/dL (30.0-36.0); Mean Corpuscular Hemoglobin 26.9 pg (28.0-34.0); Mean Corpuscular Volume 81.2 fl (80-94); Mean Platelet Volume 11.3 fL (7.4-10.4); Monocytes # 1.1 10^3/uL (0.2-0.9); Neutrophils # 11.04 10^3/uL (1.8-7.7); Nucleated Red Blood Cells # 0.1 /100WBC; Nucleated Red Blood Cells % 0.3 %; Platelet Count 355 10^3/cmm (130-400); Red Blood Count 4.68 10^6/uL (4.1-5.3); Red Cell Distribution Width 13.5 % (12.1-15.1); White Blood Count 15.3 10^3/uL (4.0-10.0)
--- NOTE | 2022-04-12 20:17 | W.ED.SOB ---
HPI - SOB/Dyspnea General: Chief Complaint: Shortness of Breath/Dyspnea Stated Complaint: bilateral swelling, sob Time Seen by Provider: 04/12/22 19:48 Source: patient Mode of arrival: ambulatory Limitations: no limitations History of Present Illness: HPI Narrative: 46-year-old male states been having shortness of breath over the last 3 days states he was told yesterday he may have pneumonia was placed on antibiotics at urgent care he states he has had worsening dyspnea since then along with some weight gain and swelling. States he has dyspnea mainly with exertion he has some mild pain at times he states in his chest but no pain currently denies any diaphoresis denies any nausea. PFSH ED PFSH: Medical History No pertinent past medical history Social History (Updated 04/12/22 @ 20:18 by Dede Dutton MD) Substance/Drug Use: never Physical Exam Const: COMMON NORMALS: patient oriented x3 HENMT: COMMON NORMALS: normocephalic and atraumatic HEAD & SCALP: normocephalic and atraumatic Eye: COMMON NORMALS: Equal, round and reactive pupils present and EOMs intact bilaterally PUPIL: Yes Equal, round and reactive pupils present Neck/C-Spine: COMMON NORMALS: full ROM and supple Chest: COMMONS NORMALS: normal inspection of the chest and normal palpation of entire chest wall Resp: COMMON NORMALS: normal respiratory effort, No retractions, No use of accessory muscles and clear to auscultation bilaterally AUSCULTATION: clear to auscultation bilaterally Cardio: COMMON NORMALS: regular rate, regular rhythm and No murmurs present (Cardio) RATE: regular rate RHYTHM: regular rhythm GI: COMMON NORMALS: Normal to inspection, nondistended, normoactive bowel sounds present, Soft to palpation, non-tender and no masses PALPATION: Yes Soft to palpation Extremity: COMMON NORMALS: normal to inspection and full ROM Neuro: COMMON NORMALS: patient oriented x3, moves all extremities and no focal motor deficits Psych: COMMON NORMALS: mental status grossly normal, Normal thought process present and cooperative THOUGHT PROCESS: Normal thought process present Skin: COMMON NORMALS: no rashes or lesions noted and no wounds GENERAL SKIN EXAM: no rashes or lesions noted Course Reevaluation(s): Reevaluation #1: Patient presents here with dyspnea EKG showed findings concerning for STEMI he does have diffuse elevation I reviewed both EKGs with chip mixing machine operator Dr. Dotson at this time feels it could be a pericarditis due to the diffuse ST elevation patient is pain-free here he has had minimal chest pain he has no diaphoresis no signs of STEMI at this time and joint agreement with Dr. Valencia will await first troponin result Time: 20:04 Vital Signs: Vital signs: Vital Signs Temperature 96.0 F L 04/12/22 19:40 Pulse Rate 119 H 04/12/22 21:25 Respiratory Rate 27 H 04/12/22 21:25 Blood Pressure 128/88 04/12/22 21:25 Pulse Oximetry 93 04/12/22 21:25 Oxygen Delivery Me thod 04/12/22 20:42 Oxygen Flow Rate 2 04/12/22 20:42 MDM - SOB/Dyspnea Medical Decision Making Patient presents here with an NSTEMI patient does have an elevated troponin he has been chest pain-free here he also has elevated BNP likely congestive heart failure patient was seen down in the ER by Dr. Dotson who is going to take patient to the Medical Record Administrator at this time patient given Plavix along with Lovenox. Lab Data 04/12/22 20:04 04/12/22 20:04 Labs/Radiology: Radiology Impressions Chest X-Ray 04/12/22 19:34 IMPRESSION: Patchy left basilar opacity. See discussion above. Laboratory Results WBC 15.3 10^3/uL (4.0-10.0) H 04/12/22 20:04 RBC 4.68 10^6/uL (4.1-5.3) 04/12/22 20:04 Hgb 12.6 g/dL (11.7-16.6) 04/12/22 20:04 Hct 38.0 % (42.0-52.0) L 04/12/22 20:04 MCV 81.2 fl (80-94) 04/12/22 20:04 MCH 26.9 pg (28.0-34.0) L 04/12/22 20:04 MCHC 33.2 g/dL (30.0-36.0) 04/12/22 20:04 RDW 13.5 % (12.1-15.1) 04/12/22 20:04 Plt Count 355 10^3/cmm (130-400) 04/12/22 20:04 MPV 11.3 fL (7.4-10.4) H 04/12/22 20:04 Neut % (Auto) 72.0 % 04/12/22 20:04 Lymph % (Auto) 16.8 % 04/12/22 20:04 [place] % (Auto) 7.0 % 04/12/22 20:04 Eos % (Auto) 0.3 % 04/12/22 20:04 Baso % (Auto) 0.3 % 04/12/22 20:04 Neut # (Auto) 11.04 10^3/uL (1.8-7.7) H 04/12/22 20:04 Lymph # (Auto) 2.6 10^3/uL (0.8-4.8) 04/12/22 20:04 [place] # (Auto) 1.1 10^3/uL (0.2-0.9) H 04/12/22 20:04 Eos # (Auto) 0.1 10^3/uL (0.0-0.8) 04/12/22 20:04 Baso # (Auto) 0.0 10^3/uL (0.0-0.1) 04/12/22 20:04 Nucleated RBC % (auto) 0.3 % 04/12/22 20:04 Nucleated RBCs # 0.1 /100WBC 04/12/22 20:04 Sodium 129 mmol/L (136-145) L 04/12/22 20:04 Potassium 4.4 mmol/L (3.5-5.1) 04/12/22 20:04 Chloride 89 mmol/L (98-107) L 04/12/22 20:04 Carbon Dioxide 25 mmol/L (22-29) 04/12/22 20:04 Anion Gap 19.4 (5-19) H 04/12/22 20:04 BUN 31 mg/dL (6-20) H 04/12/22 20:04 Creatinine 1.0 mg/dL (0.7-1.2) 04/12/22 20:04 GFR Calculation 80.8 mL/min (90-130) L 04/12/22 20:04 Glucose 513 mg/dL (65-115) H* 04/12/22 20:04 Calculated Osmolality 298 mOsm/kg (285-295) H 04/12/22 20:04 Calcium 8.8 mg/dL (8.5-10.5) 04/12/22 20:04 Total Bilirubin 0.3 mg/dL (0.15-1.2) 04/12/22 20:04 AST 34 U/L (0-40) 04/12/22 20:04 ALT 40 U/L (0-41) 04/12/22 20:04 Alkaline Phosphatase 174 U/L (40-130) H 04/12/22 20:04 Troponin T Baseline 876 ng/L (0-15) H* 04/12/22 20:04 NT-Pro-B Natriuret Pep 6988 pg/mL (0-125) H 04/12/22 20:04 Total Protein 6.4 g/dL (6.6-8.7) L 04/12/22 20:04 Albumin 3.6 g/dL (3.5-5.2) 04/12/22 20:04 Globulin 2.8 g/dL (1.3-4.6) 04/12/22 20:04 Critical Care Time Critical Care Time: Critical Care Time: Yes Total Critical Care Time: 45 Attestation: The high probability of a clinically significant, sudden or life threatening deterioration of the patient's cv system(s) required my full and direct attention, intervention and personal management. The critical care time is as shown. This time is in addition to time spent performing any reported procedures but includes the following: [x] Data and vital sign review and interpretation [x] Patient assessment, examination and intervention [x] Documentation [x] Medication orders and management Discharge Plan Discharge Patient Disposition: Admitted As Inpatient Clinical Impression: Non-ST elevation DE (NSTEMI) Coding Level of Care Code ED Edi Developer for Koko Fwd Exam Comprehensive
[2022-04-12 20:37] LABS: Alanine Aminotransferase 40 U/L (0-41); Albumin Level 3.6 g/dL (3.5-5.2); Alkaline Phosphatase 174 U/L (40-130); Anion Gap 19.4 (5-19); Aspartate Amino Transferase 34 U/L (0-40); Blood Urea Nitrogen 31 mg/dL (6-20); Calcium 8.8 mg/dL (8.5-10.5); Carbon Dioxide 25 mmol/L (22-29); Chloride 89 mmol/L (98-107); Creatinine Clr Calc Pharmacy 99.6355; Globulin 2.8 g/dL (1.3-4.6); Glomerular Filtration Rate 80.8 mL/min (90-130); Osmolality Calculated 298 mOsm/kg (285-295); Potassium 4.4 mmol/L (3.5-5.1); Sodium 129 mmol/L (136-145); Total Bilirubin 0.3 mg/dL (0.15-1.2); Total Protein 6.4 g/dL (6.6-8.7)
[2022-04-12 20:38] LABS: Troponin(5th) Baseline 876 ng/L (0-15)
[2022-04-12 20:43] LABS: NT Pro B Type Natriuretic Pept 6988 pg/mL (0-125)
[2022-04-12] MEDS: clopidogrel 300 mg Tablet 600 MG PO (20:43)
[2022-04-12 20:53] LABS: Glucose 513 mg/dL (65-115)
[2022-04-12] MEDS: insulin regular-human 100 units/1 mL 10 UNIT IVP (21:12)
--- NOTE | 2022-04-12 21:28 | ECG_ITS ---
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 Measurements Intervals [place] Rate: 119 P: 57 MA: 134 QRS: 32 QRSD: 87 T: 35 QT: 297 QTc: 418 Interpretive Statements SINUS TACHYCARDIA LOW QRS VOLTAGE IN EXTREMITY LEADS [QRS DEFLECTION < 0.5 mV IN LIMB LEADS] ANTEROSEPTAL MYOCARDIAL INFARCTION , OF INDETERMINATE AGE [40+ ms Q WAVE IN V1-V4] MARKED ST ELEVATION, CONSIDER LATERAL INJURY [MARKED ST ELEVATION W/O NORMALLY INFLECTED T-WAVE IN I/aVL/V5/V6] MARKED ST ELEVATION, CONSIDER INFERIOR INJURY [MARKED ST ELEVATION W/O NORMALLY INFLECTED T-WAVE IN II/aVF] ACUTE [place] Compared to ECG 04/12/2022 20:04:49 No significant changes Electronically Signed On 04-14-2022 13:51:00 BOMB SQUAD COMMANDER by Rakan Herndon M.D. [id number]
[2022-04-12] MEDS: enoxaparin 100 mg/mL Syringe 90 MG SUBCUT (21:29)
--- NOTE | 2022-04-12 21:34 | ECG_ITS ---
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 Measurements Intervals [place] Rate: 123 P: 54 NM: 124 QRS: 31 QRSD: 89 T: 37 QT: 306 QTc: 439 Interpretive Statements SINUS TACHYCARDIA LOW QRS VOLTAGE IN EXTREMITY LEADS [QRS DEFLECTION < 0.5 mV IN LIMB LEADS] ANTEROSEPTAL MYOCARDIAL INFARCTION , OF INDETERMINATE AGE [40+ ms Q WAVE IN V1-V4] MARKED ST ELEVATION, CONSIDER LATERAL INJURY [MARKED ST ELEVATION W/O NORMALLY INFLECTED T-WAVE IN I/aVL/V5/V6] MARKED ST ELEVATION, CONSIDER INFERIOR INJURY [MARKED ST ELEVATION W/O NORMALLY INFLECTED T-WAVE IN II/aVF] ACUTE [place] Compared to ECG 04/12/2022 19:59:28 No significant changes Electronically Signed On 04-14-2022 13:55:30 MECHANICAL PROJECT ENGINEER by Rakan Herndon M.D. [id number] f
--- NOTE | 2022-04-12 21:51 | P.HP_ITS ---
Providers/Chief Complaint Admitting Physician: daphnie Chief Complaint: bilateral swelling, sob History of Present Illness David Price is a 46 year old male who is a very reluctant historian. He has no history of coronary disease. He has untreated diabetes. He is aware of his diabetes but he chooses not to treat it. His glucose is above 500. This illness started a week ago. He had an episode of vomiting. He toughed it out and then early in the week went to a primary care person down in [facility]. He was told he had pneumonia and was placed on methylprednisolone, tetracycline, albuterol and Symbicort. He has had some myalgias and a tight sensation in his chest. He short of breath. He feels like he is not getting any better and in fact over the last 2 or 3 days he has had much more shortness of breath. He is having to sleep sitting up and on occasion will actually kneel down on the floor in place his chest and head face down on the couch in order to try to get some sleep. He simply cannot lie flat to sleep. He is also felt like he is gained about 10 pounds. He thinks that there is some extra fluid in his calf muscles. When he arrived here his EKG revealed lack of R wave progression from leads V1 through V4 and ST segment elevation in leads V4 through V6 as well as 2 3 and aVF and 1 and L. This finding was repeated throughout several EKGs. The emergency room physician called me concerning a STEMI. His white blood cell count is 15.3. His glucose is 513. His BNP is just below 7000. His first troponin is 876. Chest x-ray reveals a enlarged cardiac silhouette and some pulmonary vascular redistribution. Review of Systems Narrative: Review of systems is otherwise negative. Medications/Allergies Allergies Allergy/AdvReac Type Severity Reaction Status Date / Time Sulfa (Sulfonamide Allergy Unknown Verified 04/12/22 20:03 Antibiotics) PFSH Acute PFSH: Medical History (Updated 04/12/22 @ 21:58 by Luciano Dotson MD) Abnormal EKG CHF (congestive heart failure) Diabetes Elevated troponin No pertinent past medical history Social History (Updated 04/12/22 @ 20:18 by Dede Dutton MD) Substance/Drug Use: never Vitals/I&O/Wt Last Vital Signs Temp 96.0 F L 04/12/22 19:40 Pulse 117 H 04/12/22 21:30 Resp 30 H 04/12/22 21:30 BP 128/88 04/12/22 21:30 Pulse Ox 93 04/12/22 21:30 O2 Del Method 04/12/22 20:42 O2 Flow Rate 2 04/12/22 20:42 Weight last 48 hrs Weight 190 lb Physical Exam Narrative: GENERAL: His blood pressure is stable however his heart rate is 118 sinus tachycardia. HEENT: Exam within normal limits. NECK: Supple without jugular vein distention. The carotid upstroke is normal without bruits. BACK: Exam normal. LUNGS: Clear. HEART: Regular rate and rhythm. ABDOMEN: Benign without organomegaly or tenderness. EXTREMITIES: No edema. NEUROLOGIC: Exam normal. SKIN: Unremarkable. Data 04/12/22 20:04 04/12/22 20:04 A&P Assessment and plan (1) CHF (congestive heart failure): (2) Diabetes: (3) Elevated troponin: (4) Abnormal EKG: Plan Overall this looks both by physical exam, history and laboratory data like a cardiomyopathy with heart failure however the ST segment elevation which is diffuse and the troponin elevation is bothersome. Pericarditis is in the diffe rential however that would not explain the symptoms consistent with heart failure. I think we just need to perform coronary angiography and see where we are. If his coronaries are normal then this is probably going to be a cardiomyopathic problem. He is a non-smoker and other than his untreated d iabetes there are no particular risk factors for heart disease. Attestations Medical Necessity Statement*: Hospitalization for management of abnormal EKG, elevated troponin, clinical congestive heart failure and tachycardia. Coding Level of Care Code New Pt Acute Hand Binder Stripper for Chg Fwd Patient Type New History Detailed Exam Detailed Medical Decision Making Moderate Complexity Diagnoses CHF (congestive heart failure) I50.9 Diabetes E11.9 Elevated troponin R77.8 Abnormal EKG R94.31
[2022-04-12] MEDS: diphenhydrAMINE 50 mg Capsule PO (22:08)
[2022-04-12 22:16] LABS: Troponin 5 2HR Delta -27.1 ABS# (0-10)
[2022-04-12 22:17] LABS: Troponin 5 2HR 848.9 ng/L (0-15)
[2022-04-13] VITALS (38 sets, daily range): BP systolic 97–176; BP diastolic 65–94; PULSE 83–110; RESP 12–31; TEMP 36.4–36.8; O2SAT 88–97
--- NOTE | 2022-04-13 00:17 | PC.NURSE ---
Received pt from labor relations analyst to room 111-1 at approximately 2325. Pt arrived with sheath in right groin connected to pressure bag. Drsg at sheath sight was dry and intact. No swelling, hematoma, or bleeding noted. Pt had no c/o pain or discomfort at the present time. Pt had an elevated ST wave and rapid heart rate 118bpm. Stat ECG was done notified. No new orders were received. Will continue to monitor.
--- NOTE | 2022-04-13 01:34 | ECG_ITS ---
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 Measurements Intervals [place] Rate: 111 P: 62 NV: 123 QRS: -1 QRSD: 91 T: 34 QT: 322 QTc: 438 Interpretive Statements SINUS TACHYCARDIA POSSIBLE LEFT ATRIAL ENLARGEMENT [-0.1mV P-WAVE IN V1/V2] LOW QRS VOLTAGE [QRS DEFLECTION < 0.5/1.0 mV IN LIMB/CHEST LEADS] ANTEROSEPTAL MYOCARDIAL INFARCTION , OF INDETERMINATE AGE [40+ ms Q WAVE IN V1-V4] MARKED ST ELEVATION, CONSIDER INFERIOR INJURY [MARKED ST ELEVATION W/O NORMALLY INFLECTED T-WAVE IN II/aVF] ACUTE VA INTERPRETATION BASED ON A DEFAULT AGE OF 40 YEARS Compared to ECG 04/12/2022 21:28:18 No significant changes Electronically Signed On 04-14-2022 13:55:21 LABOR RELATIONS SUPERVISOR by Rakan Herndon M.D. [id number]
[2022-04-13 02:20] LABS: Partial Thromboplastin Time 27.5 SECONDS (23.9-36.7)
[2022-04-13 02:47] LABS: Troponin 5 6HR 975.1 ng/L (0-15); Troponin 5 6HR Delta 99.1 ng/L (0-12)
[2022-04-13] MEDS: FUROsemide 10 mg/mL SDV 4mL 40 MG IVP (02:53)
[2022-04-13] MEDS: sodium chloride 0.9% 1,000 ML 100 ML IV (02:54)
[2022-04-13] MEDS: ALPRAZolam 0.5 mg Tablet 0.25 MG PO (03:08)
--- NOTE | 2022-04-13 04:48 | PC.NURSE ---
Sheath pulled from right groin at 0400. Pt tolerated well. Drsg in place dry and intact. No swelling, hematoma, or bleeding noted. Distal pulses palpable and full. Pt had no c/o pain or discomfort at the present time. VS stable. Call light in reach. Will continue to monitor.
[2022-04-13 06:29] LABS: Glucose Point of Care 343 mg/dL (70-110)
[2022-04-13] MEDS: insulin lispro 100 unit/1 mL SUBCUT ×3 (08:25→18:01)
[2022-04-13] MEDS: lisinopril 2.5 mg Tablet PO (08:26)
[2022-04-13] MEDS: spironolactone 25 mg Tablet 12.5 MG PO (08:26)
[2022-04-13] MEDS: aspirin 81 mg EC Tablet PO (08:26)
[2022-04-13] MEDS: clopidogrel 75 mg Tablet PO (08:26)
[2022-04-13] MEDS: potassium chloride ER 20 mEq Tablet PO (08:26)
--- NOTE | 2022-04-13 08:51 | P.PN_ITS ---
Subjective Subjective: David feels better this morning. Angiography was performed acutely last night due to his widespread ST segment elevation and evidence of congestive heart failure. I found an occluded right coronary artery which was the dominant artery anatomically but was very small. It was too small to stent. I opened it with a balloon. However, when I placed the guide in the artery, the the artery is so small that it caused hypotension bradycardia and heart block. Therefore, I had to hurry the balloon procedure so as not to cause complete heart block, further bradycardia and hypotension. I gave him some Lasix overnight and started him on sliding scale insulin. He has had 1500 mL of urine output. He feels better this morning. He can actually lie flat and rest and sleep. He remains on a statin, Plavix, aspirin, Aldactone, AMBER inhibitor and intravenous Lasix. The heart failure was related to overall left ventricular dysfunction. His left ventricular dysfunction is out of proportion to the degree of coronary artery disease. This is likely related to the diabetes. I had to perform the procedure from the groin because of a large firm cyst over the right radial artery. No complications therein. Vitals/I&O/Wt Last Vital Signs Temp 98.2 F 04/13/22 07:10 Pulse 97 04/13/22 08:03 Resp 24 H 04/13/22 07:10 BP 111/83 04/13/22 07:10 Pulse Ox 93 04/13/22 08:03 O2 Del Method 04/13/22 08:03 O2 Flow Rate 4 04/13/22 08:03 04/12/22 04/13/22 04/13/22 22:59 06:59 14:59 Intake Total 100 / 100 600 / 600 Output Total 1500 / 1500 Balance -1400 / -1400 600 / 600 Weight last 48 hrs Weight 190 lb Physical Exam Narrative: GENERAL: In general he is improved. Less shortness of breath. No chest pain. HEENT: Exam within normal limits. NECK: Supple without jugular vein distention. The carotid upstroke is normal without bruits. BACK: Exam normal. LUNGS: Clear. HEART: Regular rate and rhythm. ABDOMEN: Benign without organomegaly or tenderness. EXTREMITIES: No edema. NEUROLOGIC: Exam normal. SKIN: Unremarkable. Data 04/12/22 20:04 04/12/22 20:04 A&P Assessment and plan (1) Myocardial infarction, inferior wall: (2) Cardiomyopathy: (3) CHF (congestive heart failure): (4) Diabetes: Plan Today we will change to Lasix by mouth. Recheck chemistry panel. Up and around today. We will come up with a diabetic regimen for him. He does not want to take insulin. Attestations Medical Necessity Statement*: hospitalization for subacute myocardial infarction, congestive heart failure, cardiomyopathy and diabetes [id number]. 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
--- NOTE | 2022-04-13 09:54 | USCV_ITS ---
David Price Age: 46 Gender: M : 1975 Exam Date: 04/13/2022 12:34 Ordering Phys: Luciano Dotson MD ([email or web address]) Technologist: Anthony Baltazar Exam Location: [facility] [place] Indication: cardiomyopathy BP: 135 / 75 HR: 43 Rhythm: Sinus Technical Quality: Adequate MEASUREMENTS (Male / Female) Normal Values 2D ECHO LV Diastolic Diameter PLAX 4.4 cm 4.2 - 5.9 / 3.9 - 5.3 cm LV Systolic Diameter PLAX 3.7 cm IVS Diastolic Thickness 1.1 cm 0.6 - 1.0 / 0.6 - 0.9 cm IVS Systolic Thickness 1.1 cm LVPW Diastolic Thickness 1.2 cm 0.6 - 1.0 / 0.6 - 0.9 cm LVPW Systolic Thickness 1.2 cm LVOT Diameter 1.9 cm LV Ejection Fraction 2D Teich 33.7 % LV Ejection Fraction MOD 2C 31.8 % LV Ejection Fraction 2C AL 32.8 % LA Diameter 3.7 cm Aorta at Sinotubular Diameter 2.1 cm IVC Diameter 2.3 cm M-MODE Aortic Annulus Diameter 2.9 cm LA Ao Ratio MM 1.4 MV E Point Septal Separation 1.4 cm DOPPLER AV Peak Velocity 114.0 cm/s LVOT Peak Velocity 74.0 cm/s AV Area Cont Eq vti 1.8 cm squared AV Area Cont Eq pk 1.8 cm squared MV Area PHT 5.0 cm squared Mitral E to A Ratio 1.3 MV E' Velocity 52.5 cm/s Mitral E to MV E' Ratio 16.2 Mitral E to LV E' Lateral Ratio 16.0 Mitral E to LV E' Septal Ratio 16.5 TR Peak Velocity 264.0 cm/s TR Peak Gradient 27.9 mmHg TV Peak E Velocity 104.0 cm/s Right Atrial Pressure 3.0 mmHg Pulmonary Artery Systolic Pressu 30.9 mmHg RV Acceleration Time 0.3 s FINDINGS Left Ventricle The ventricle is upper limit of normal in size. There are multiple wall motion disturbances. The very apex is dyskinetic. The apical septum and apical anterior wall are akinetic. The mid anterior wall is severely hypokinetic. The anterior base contracts normally. The posterior wall contracts normally. The inferior wall is moderately hypokinetic. The ejection fraction is no better than 30%. Grade 1 diastolic dysfunction. Right Ventricle Normal right ventricular size and function. Right ventricular systolic pressure 30 mmHg Right Atrium The right atrium is normal in size. Left Atrium The left atrium is normal in size. Mitral Valve Structurally normal mitral valve. Mild mitral regurgitation. No mitral stenosis. Aortic Valve Structurally normal trileaflet aortic valve without stenosis or regurgitation. Tricuspid Valve Structurally normal tricuspid valve. Trace tricuspid regurgitation. Pulmonic Valve Pulmonic valve not well seen. Mild pulmonic insufficiency. Pericardium No pericardial effusion. Small left pleural effusion. Aorta Normal ascending aorta dimension. IVC The inferior vena cava appears normal. CONCLUSIONS The ventricle is upper limit of normal in size. There are multiple wall motion disturbances. The very apex is dyskinetic. The apical septum and apical anterior wall are akinetic. The mid anterior wall is severely hypokinetic. The anterior base contracts normally. The posterior wall contracts normally. The inferior wall is moderately hypokinetic. The ejection fraction is no better than 30%. Grade 1 diastolic dysfunction. Normal right ventricular size and function. Right ventricular systolic pressure 30 mmHg. Structurally normal mitral valve. Mild mitral regurgitation. No mitral stenosis. No pericardial effusion. Small left pleural effusion. No prior echo to compare. Dr. Luciano Dotson MD (Electronically Signed) Final Date: 14 April 2022 13:31 S
--- NOTE | 2022-04-13 10:59 | PC.NURSE ---
Ambulated down hallways-pt denies any chest pain or discomfort, denies shortness of breath when asked. pt stated, i feel fine. ekg shows st elevation on the monitor which was addressed s/p cath. will keep monitoring.
[2022-04-13 11:06] LABS: Glucose Point of Care 231 mg/dL (70-110)
[2022-04-13] MEDS: acetaminophen 325 mg Tablet 650 MG PO (15:25)
[2022-04-13 17:10] LABS: Glucose Point of Care 177 mg/dL (70-110)
[2022-04-13 19:59] LABS: Glucose Point of Care 124 mg/dL (70-110)
[2022-04-13] MEDS: atorvastatin 40 mg Tablet 80 MG PO (20:05)
[2022-04-14] VITALS (9 sets, daily range): BP systolic 96–105; BP diastolic 69–73; PULSE 70–106; RESP 16–27; TEMP 36.4–36.7; O2SAT 92–94
[2022-04-14] MEDS: temazepam 15 mg Capsule PO (01:32)
[2022-04-14] MEDS: acetaminophen 325 mg Tablet 650 MG PO (01:32)
[2022-04-14 03:31] LABS: Anion Gap 16.3 (5-19); Blood Urea Nitrogen 30 mg/dL (6-20); Calcium 8.7 mg/dL (8.5-10.5); Carbon Dioxide 26 mmol/L (22-29); Chloride 100 mmol/L (98-107); Creatinine Clr Calc Pharmacy 124.5443; Glomerular Filtration Rate 104.5 mL/min (90-130); Glucose 327 mg/dL (65-115); Osmolality Calculated 305 mOsm/kg (285-295); Potassium 4.3 mmol/L (3.5-5.1); Sodium 138 mmol/L (136-145)
[2022-04-14 06:49] LABS: Glucose Point of Care 277 mg/dL (70-110)
[2022-04-14] MEDS: insulin lispro 100 unit/1 mL SUBCUT ×2 (08:13→12:38)
[2022-04-14] MEDS: aspirin 81 mg EC Tablet PO (08:14)
[2022-04-14] MEDS: FUROsemide 40 mg Tablet PO (08:14)
[2022-04-14] MEDS: clopidogrel 75 mg Tablet PO (08:14)
[2022-04-14] MEDS: potassium chloride ER 20 mEq Tablet PO (08:14)
[2022-04-14] MEDS: lisinopril 2.5 mg Tablet PO (08:14)
[2022-04-14] MEDS: spironolactone 25 mg Tablet 12.5 MG PO (08:14)
[2022-04-14 11:27] LABS: Glucose Point of Care 285 mg/dL (70-110)
--- NOTE | 2022-04-14 11:48 | P.DS_ITS ---
Discharge Providers Date of Admission: 04/13/22 01:28 Date of Discharge: April 14, 2022 Attending Provider at Admission: Luciano Dotson MD Attending Provider at Discharge: Luciano Dotson MD Diagnoses at Discharge Discharge Diagnosis (1) Myocardial infarction, inferior wall: Status: Acute (2) Cardiomyopathy: Status: Acute Qualifiers: Cardiomyopathy type: ischemic Qualified Code(s): I25.5 - Ischemic cardiomyopathy (3) CHF (congestive heart failure): Status: Acute Qualifiers: Heart failure type: systolic Heart failure chronicity: acute Qualified Code(s): I50.21 - Acute systolic (congestive) heart failure (4) Diabetes: Status: Acute Reason for Visit Reason for Visit: bilateral swelling, sob Brief History: This patient is 46 years old and came to the emergency room 2 evenings ago with a weeks worth of shortness of breath, paroxysmal nocturnal dyspnea and orthopnea. He had some intermittent chest discomfort but did not really describe discomfort upon his arrival. His EKG suggested a inferior wall OR however there was ST elevation in multiple leads as well as lack of R wave progression in leads V1 through V3. He had low voltage so the EKG was a bit d ifficult to interpret. Clearly, however, his presenting symptoms suggested congestive heart failure. He had visited a primary care clinic about 5 days prior to admission and was given tetracycline, steroids and 2 inhalers assuming that it was pulmonary in origin. He came to the emergency room when the shortness of breath became untenable. Hospital Course Hospital Course He was not having any chest pain at the time of his admission however his EKG was suspicious and his first troponin came back above 800. I decided to take him to the cardiac catheterization laboratory that evening. He was also found to have untreated diabetes mellitus. His blood sugar was above 500 upon his arrival. His right coronary artery was occluded. Unfortunately, because of the longstanding untreated diabetes he has very small coronary arteries. The right, though it is a dominant vessel, with small enough it upon engaging it with a guide it caused bradycardia, heart block and hypotension. I had to sit the guide outside the ostium of the coronary artery to allow blood flow and quickly place a wire and a balloon to open the vessel. I was able to open the vessel in the midportion where it was occluded however the distal flow down at the level of posterior descending artery was not very good. His left main was unremarkab le and his circumflex was unremarkable. He has a very small LAD that had a significant lesion in the midportion. The vessel itself however was open to the apex. Ventriculography revealed an ejection fraction of about 20% with what appeared to be a prior infarct in the distribution of the LAD. The more acute event was the right coronary artery. Combination of the prior LAD distribution infarct in the recent right coronary artery distribution infarct decreased his left ventricular function enough that he developed heart failure which was his presenting set of symptoms. I placed him on afterload reduction, statin, loop diuretic, Aldactone and beta- marialuisa. His heart failure improved. At the time of discharge he is compensated. He is rather stoic and initially refused placement of a LifeVest because of his job. He finally consented. We will set him up with a LifeVest to go. He will be off work for 2 weeks. He works for the [employer]. He also does not have a primary care physician and I will get him set up with an college or university department head in [facility] where he lives. He will need to see our nurse practitioner in about 7 to 10 days for purposes of evaluating his groin, checking his chemistry panel and setting up a Lexiscan sestamibi. The Lexiscan will be utilized to assess the viability of the anterior wall and apex and the possibility of ischemia in that distribution. If it is abnormal he will probably need intervention to the mid LAD. I did not intervene on the LAD at the time of the original angiogram because he was in heart failure and because of the difficulty I had an engaging the right coronary artery with hypotension and heart block. The LAD can be done in a staged procedure if necessary. There were no complications with the right groin which was the entry site. At the time of discharge it is flat and dry without bleeding. He has been instructed not to work for 2 weeks. He is also been instructed not to lift anything more than 5 pounds for 2 days. Physical Exam Narrative: GENERAL: In general he is much improved and able to lie flat with out shortness of breath HEENT: Exam within normal limits. NECK: Supple without jugular vein distention. The carotid upstroke is normal without bruits. BACK: Exam normal. LUNGS: Clear. HEART: Regular rate and rhythm. ABDOMEN: Benign without organomegaly or tenderness. EXTREMITIES: No edema. The right groin entry site is flat, dry without bleeding, hematoma or other vascular anomaly. NEUROLOGIC: Exam normal. SKIN: Unremarkable. Discharge Data Studies Completed and Pending Completed Studies During Hospitalization Category Date Time Status IN HOME BABY SITTER request for service Routine Exams 04/12/22 Completed XR chest 1V portable [id number] Stat Exams 04/12/22 19:34 Completed Pending at discharge Category Date Time Status CV. echo complete* [id number] Routine Ultrasound 04/13/22 09:54 Taken Radiology Impressions Chest X-Ray 04/12/22 19:34 IMPRESSION: Patchy left basilar opacity. See discussion above. Laboratory Results WBC 15.3 10^3/uL (4.0-10.0) H 04/12/22 20:04 RBC 4.68 10^6/uL (4.1-5.3) 04/12/22 20:04 Hgb 12.6 g/dL (11.7-16.6) 04/12/22 20:04 Hct 38.0 % (42.0-52.0) L 04/12/22 20:04 MCV 81.2 fl (80-94) 04/12/22 20:04 MCH 26.9 pg (28.0-34.0) L 04/12/22 20:04 MCHC 33.2 g/dL (30.0-36.0) 04/12/22 20:04 RDW 13.5 % (12.1-15.1) 04/12/22 20:04 Plt Count 355 10^3/cmm (130-400) 04/12/22 20:04 MPV 11.3 fL (7.4-10.4) H 04/12/22 20:04 Neut % (Auto) 72.0 % 04/12/22 20:04 Lymph % (Auto) 16.8 % 04/12/22 20:04 [place] % (Auto) 7.0 % 04/12/22 20:04 Eos % (Auto) 0.3 % 04/12/22 20:04 Baso % (Auto) 0.3 % 04/12/22 20:04 Neut # (Auto) 11.04 10^3/uL (1.8-7.7) H 04/12/22 20:04 Lymph # (Auto) 2.6 10^3/uL (0.8-4.8) 04/12/22 20:04 [place] # (Auto) 1.1 10^3/uL (0.2-0.9) H 04/12/22 20:04 Eos # (Auto) 0.1 10^3/uL (0.0-0.8) 04/12/22 20:04 Baso # (Auto) 0.0 10^3/uL (0.0-0.1) 04/12/22 20:04 Nucleated RBC % (auto) 0.3 % 04/12/22 20:04 Nucleated RBCs # 0.1 /100WBC 04/12/22 20:04 APTT 27.5 SECONDS (23.9-36.7) 04/13/22 01:42 Sodium 138 mmol/L (136-145) 04/14/22 02:05 Potassium 4.3 mmol/L (3.5-5.1) 04/14/22 02:05 Chloride 100 mmol/L (98-107) 04/14/22 02:05 Carbon Dioxide 26 mmol/L (22-29) 04/14/22 02:05 Anion Gap 16.3 (5-19) 04/14/22 02:05 BUN 30 mg/dL (6-20) H 04/14/22 02:05 Creatinine 0.8 mg/dL (0.7-1.2) 04/14/22 02:05 GFR Calculation 104.5 mL/min (90-130) 04/14/22 02:05 Glucose 327 mg/dL (65-115) H 04/14/22 02:05 POC Glucose 285 mg/dL (70-110) H 04/14/22 11:21 Calculated Osmolality 305 mOsm/kg (285-295) H 04/14/22 02:05 Calcium 8.7 mg/dL (8.5-10.5) 04/14/22 02:05 Total Bilirubin 0.3 mg/dL (0.15-1.2) 04/12/22 20:04 AST 34 U/L (0-40) 04/12/22 20:04 ALT 40 U/L (0-41) 04/12/22 20:04 Alkaline Phosphatase 174 U/L (40-130) H 04/12/22 20:04 Troponin T Baseline 876 ng/L (0-15) H* 04/12/22 20:04 Troponin T 120 Minute 848.9 ng/L (0-15) H 04/12/22 21:30 Delta Troponin T -27.1 ABS# (0-10) L 04/12/22 21:30 Troponin T Hi Sens 6Hr 975.1 ng/L (0-15) H 04/13/22 01:42 Troponin T Hi Sens 6Hr Delta 99.1 ng/L (0-12) H* 04/13/22 01:42 NT-Pro-B Natriuret Pep 6988 pg/mL (0-125) H 04/12/22 20:04 Total Protein 6.4 g/dL (6.6-8.7) L 04/12/22 20:04 Albumin 3.6 g/dL (3.5-5.2) 04/12/22 20:04 Globulin 2.8 g/dL (1.3-4.6) 04/12/22 20:04 Procedures Performed Left heart catheterization, left ventriculography, balloon angioplasty of the right coronary artery, coronary angiography. Vitals Last Vital Signs Temp 98.1 F 04/14/22 11:41 Pulse 106 H 04/14/22 08:52 Resp 27 H 04/14/22 08:52 BP 101/71 04/14/22 11:41 Pulse Ox 92 04/14/22 04:00 O2 Del Method 04/14/22 04:00 O2 Flow Rate 2 04/14/22 04:00 Discharge Plan Discharge Patient Disposition: Home Condition: Stable Prescriptions: New atorvastatin 40 mg Tablet 80 mg PO BEDTIME Qty: 30 9RF clopidogrel 75 mg Tablet 75 mg PO DAILY Qty: 30 3RF lisinopril 2.5 mg Tablet 2.5 mg PO DAILY Qty: 30 3RF furosemide 40 mg Tablet 40 mg PO DAILY@0800 Qty: 30 7RF Januvia 50 mg tablet 50 mg PO DAILY Qty: 30 3RF aspirin 81 mg Tablet,Delayed Release (Dr/Ec) 81 mg PO DAILY Qty: 100 3RF spironolactone 25 mg Tablet 12.5 mg PO DAILY Qty: 30 3RF nitroglycerin 0.4 mg Tablet, Sublingual 0.4 mg sublingual Q5M PRN (Reason: Chest Pain) Qty: 25 2RF metformin 500 mg tablet 500 mg PO BID Qty: 60 3RF metoprolol tartrate 25 mg tablet 25 mg PO BID Qty: 60 3RF No Action No Known Home Medications Discharge Orders: Discharge Order (Routine); Ordered 04/14/22 Ordered By: Luciano Dotson Referrals: Jose Dunbar MD [Physician] - 1 month Luciano Dotson MD [Physician] - 6 Weeks Gina Trejo FNP [Nurse Practitioner] - 7-10 days (Check right groin, assess chemistry panel, order Lexiscan sestamibi.) Discharge Diet: Diabetic and Low Salt Discharge Activity: Increase activity as tolerated and Limit activity as instructed Patient Instructions: Coronary Angioplasty (DC), Opioid Safety Activity Restrictions/Additional Instructions: No lifting over 5 pounds for 2 days. No work for 2 weeks. Discharge Attestations Time Spent in Discharge Care*: greater than 30 min Quality Metrics Clinical Quality Measures [ Acute Myocardial Infaction { Clinical Trial Participant: No; Contraindication to aspirin: None; Aspirin prescribed; Contraindication to statin: None; Statin prescribed; Contraindication to PCI: None; PCI performed;}] Coding Level of Care Code Established Pt Acute Chg FW DC note Patient Type Established History Comprehensive Exam Comprehensive Medical Decision Making High Complexity Diagnoses Myocardial infarction, inferior wall I21.19 Cardiomyopathy I25.5 Cardiomyopathy type: ischemic CHF (congestive heart failure) I50.21 Heart failure type: systolic Heart failure chronicity: acute Diabetes E11.9
--- NOTE | 2022-04-14 11:58 | PC.CHAP ---
Pastoral Care Encounter/Spiritual Assessment Type of Contact [] Declined instructional design technologist visit [] Patient/Family/Request visit [] Outpatient visit [] Follow-up visit [] Physician referral [] Code/Alert [x] Routine visit [] Staff referral [] Actively dying [x] Patient sleeping [] Family support [] [] Out of room [] Palliative care [] [] Receiving care in room [] Pre-surgical visit [] Trauma [] Long length of stay [] ICU visit [] Other: Relational/Emotional Strength [] Patient feels connected with others/family/visitors/staff [] Distress [] Loneliness/isolation [] Abandonment Spirituality of Patient [] Person of Raeann [] Attends Mosque of their Raeann [] Believes in Prayer [] Reads Bible or Anabaptism materials [] There are Spiritual issues to be addressed Nursing Program Manager Interventions [] Prayer [] Active listening [] Non-anxious presence [] Spiritual/emotional support [] Crisis/trauma care [] Spiritual counseling [] Bereavement support [] Provided bereavement packet [] Provided Bible/devotional materials [] Provided toy/stuffed animal, coloring book to patient or family member [] Provided Communion [] Anointing/[place] [] Salvation [] Completed spiritual assessment [] Other: Impact on Illness or Injury [] Angry [] Fearful [] Anxious [] Often cries [] Exhaustion [] Unable to work [] Unable to attend congregational [] Unable to walk/stand [] Unable to read [] Unable to drive [] Unable to eat/drink [] Unable to sleep [] Unable to be with family [] Patient intubated [] Other: Summary Time spent with patient
--- NOTE | 2022-04-14 14:31 | PC.NURSE ---
pt wants his new Rx to be sent to our pharmacy then refills to [facility] called pharmacy for meds to bed.
[2022-04-14] MEDS: ALPRAZolam 0.5 mg Tablet 0.25 MG PO (14:48)
--- NOTE | 2022-04-14 16:12 | PC.NURSE ---
life vest Rep in room for teaching
--- NOTE | 2022-04-14 16:13 | PC.NURSE ---
Discharge Note Patient discharged to home via private vehicle accompanied by SO. Discharge instructions reviewed with patient and/or traffic workforce representative. Mobile pharmacy medications and/or prescriptions provided. Belongings/home medications returned. Extensive discussion to pt in regards to getting a pcp, educated pt on diabetis and smoking, chf stoplight and how to manage it, discussed pt on his new meds dosing, timing, and possible s/e. discharge packet provided to pt. pt verbalizes understanding but pt needs reassurance and reinforcement.
--- NOTE | 2022-04-14 16:46 | PC.NURSE ---
pt stated to pharmacist that he takes aleve and ibuprofen at home and will be on aspirin and plavix as his discharge meds. notified dr eller via telephone an he order to let the pt stop taking these meds and take tylenol for now to control his pain. information delivered to the pt and he verbalizes understanding.
== END 2022-04-14 17:37 | disposition home or self-care (01) | DRG 250 ==
LOC: ER 21:35 → CCL 22:39 → CSU 23:34
PROVIDERS: Admitting Provider Internal Medicine Cardiovascular Disease; Emergency Provider Emergency Medicine; Visit Provider Internal Medicine Cardiovascular Disease
PROC: 02703ZZ Dilation of Coronary Artery, One Artery, Percutaneous Approach (ICD-10-PCS; principal; 2022-04-12 22:30)
PROC: 02703ZZ Dilation of Coronary Artery, One Artery, Percutaneous Approach (ICD-10-PCS; 2022-04-12 22:30)
DX: I21.11 ST elevation (STEMI) myocardial infarction involving right coronary artery (principal); I50.21 Acute systolic (congestive) heart failure; E11.65 Type 2 diabetes mellitus with hyperglycemia; I95.9 Hypotension, unspecified; I45.9 Conduction disorder, unspecified; Z91.14 Patient's other noncompliance with medication regimen
CPT/HCPCS: 36415; 36416; 71045; 80048; 80053; 82962; 83880; 84484; 85025; 85730; 92920; 93005; 93306; 93458; 96365; 96372; 99152; 99153; C1725; C1769; C1887; C1894; J0461; J1644; J1650; J1815; J1940; J2250; J3010; J7030; Q0163; Q9967

== ENCOUNTER 2022-04-19 03:44 | Inpatient (IN) | payer BC, SELFPAY ==
[2022-04-19] VITALS (20 sets, daily range): BP systolic 80–130; BP diastolic 61–85; PULSE 87–113; RESP 15–28; TEMP 36.6–36.7; O2SAT 88–95; BMI 29.7
--- NOTE | 2022-04-19 03:49 | XRR_ITS ---
PROCEDURE INFORMATION: Exam: XR Chest Exam date and time: 04/19/2022 4:09 AM Age: 46 years old Clinical indication: Cough and shortness of breath; Prior surgery; Surgery date: 3-7 days post-operative; Surgery type: Coronary angiogram; Patient HX: C/O cough with SOB. History of rca occlusion last week. Wearing zoll life vest. TECHNIQUE: Imaging protocol: Radiologic exam of the chest. Views: 1 view. COMPARISON: No relevant prior studies available. FINDINGS: Lungs: Left basilar consolidation. Remainder of the lung parenchyma is clear. Pleural spaces: Blunting of the left costophrenic angle. Heart/Mediastinum: The cardiomediastinal silhouette is within normal limits. Bones/joints: Unremarkable. XR/XR chest 1V portable [id number] IMPRESSION: Left basilar consolidation with small pleural effusion.
--- NOTE | 2022-04-19 03:50 | ECG_ITS ---
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 Measurements Intervals [place] Rate: 92 P: 79 IA: 137 QRS: 120 QRSD: 81 T: 0 QT: 369 QTc: 458 Interpretive Statements SINUS RHYTHM LOW QRS VOLTAGE [QRS DEFLECTION < 0.5/1.0 mV IN LIMB/CHEST LEADS] ANTEROLATERAL MYOCARDIAL INFARCTION , OF INDETERMINATE AGE [40+ ms Q WAVE IN I/aVL/V3-V6] No previous ECG available for comparison Electronically Signed On 04-19-2022 10:11:42 PREDATOR CONTROL TRAPPER by Mey Del Valle M.D. [id number]
--- NOTE | 2022-04-19 03:59 | W.ED.SOB ---
HPI - SOB/Dyspnea General: Chief Complaint: Shortness of Breath/Dyspnea Stated Complaint: sob Time Seen by Provider: 04/19/22 03:45 Source: patient Mode of arrival: ambulatory Limitations: no limitations History of Present Illness: HPI Narrative: 46-year-old male who was seen here last week he had had an infarct he had a lesion in his RCA that was repaired he also has congestive heart failure with low EF patient's been on diuretics. He states that over the last 2 days been having increasing shortness of breath along with chest pain he denies any vomiting or diarrhea. States that tonight his shortness of breath got much worse. Associated symptoms: Deny abdominal pain, chest pain, fever(s), nausea or vomiting Review of Systems Const: Denies: fever(s), chills, body aches or change in appetite Eyes: Denies: blurry vision or eye discomfort ENMT: Denies: throat pain or dental pain Card: Denies: chest pain Resp: Reports: dyspnea and non-productive cough GI: Denies: abdominal pain, nausea, vomiting or diarrhea : Denies: dysuria Musc: Denies: neck pain or back pain Skin/Breast: Denies: rash Neuro: Denies: headache(s) Psych: Denies: depression Timothy/Lymph: Denies: easy bruising All/Imm: Denies: urticaria PFSH ED PFSH: Medical History Abscess of right foot excluding toes Cellulitis of right foot Diabetic peripheral neuropathy associated with type 2 diabetes mellitus Foot abscess, right Impaired glucose tolerance No pertinent family history No pertinent past medical history Non-pressure chronic ulcer of other part of right foot with necrosis of muscle Pressure ulcer with full thickness skin loss involving damage or necrosis of subcutaneous tissue Social History (System 04/18/22 @ 08:50 by Gabby Martinez) Smoking and tobacco status: current every day smoker smokeless tobacco Smokeless tobacco user: snuff Smokeless tobacco details: can per day x 40 yrs Second hand smoke exposure: No Alcohol intake: current Alcohol intake frequency: holidays/special occasions only Alcohol type: beer Adopted: No Caregiver/support person: Yes Lives independently: Yes Household members: other Marital status: Unknown service: No Current occupational status: employed Current occupation: [email or web address] History of recent travel: No Current gender identity: Male Special wagner needs: No Physical Exam Const: COMMON NORMALS: patient oriented x3 HENMT: COMMON NORMALS: normocephalic and atraumatic HEAD & SCALP: normocephalic and atraumatic Eye: COMMON NORMALS: Equal, round and reactive pupils present and EOMs intact bilaterally PUPIL: Yes Equal, round and reactive pupils present Neck/C-Spine: COMMON NORMALS: full ROM and supple Chest: COMMONS NORMALS: normal inspection of the chest and normal palpation of entire chest wall Resp: COMMON NORMALS: normal respiratory effort, No retractions, No use of accessory muscles and clear to auscultation bilaterally AUSCULTATION: clear to auscultation bilaterally Cardio: COMMON NORMALS: regular rate, regular rhythm and No murmurs present (Cardio) RATE: regular rate RHYTHM: regular rhythm GI: COMMON NORMALS: Normal to inspection, nondistended, normoactive bowel sounds present, Soft to palpation, non-tender and no masses PALPATION: Yes Soft to palpation Extremity: COMMON NORMALS: normal to inspection and full ROM Neuro: COMMON NORMALS: patient oriented x3, moves all extremities and no focal motor deficits Psych: COMMON NORMALS: mental status grossly normal, Normal thought process present and cooperative THOUGHT PROCESS: Normal thought process present Skin: COMMON NORMALS: no rashes or lesions noted and no wounds GENERAL SKIN EXAM: no rashes or lesions noted Course Vital Signs: Vital signs: Vital Signs Temperature 98.0 F 04/19/22 03:56 Pulse Rate 87 04/19/22 03:56 Respiratory Rate 24 H 04/19/22 03:56 Blood Pressure 80/63 04/19/22 03:56 Pulse Oximetry 94 04/19/22 03:56 Oxygen Delivery Me thod 04/19/22 03:56 Oxygen Flow Rate 3 04/19/22 03:56 MDM - SOB/Dyspnea Medical Decision Making Patient presents with cough along with increasing shortness of breath he did have a recent cardiac cath he has severe CHF with a EF of 20% he has a LifeVest his EKG here did show STEMI showed the same as his EKG previously and when he went to the [facility] he is chest pain-free here I did have Rahat of cardiology look at the EKG as well and spoke to him and has patient's not having chest pain he thinks it still findings from his previous infarction will admit at this time and trend troponins patient was initially hypotensive his blood pressure has improved x-ray shows a possible pneumonia we will treat with antibiotics as well. Lab Data 04/19/22 04:11 04/19/22 04:11 Labs/Radiology: Radiology Impressions Chest X-Ray 04/19/22 03:49 IMPRESSION: Left basilar consolidation with small pleural effusion. Laboratory Results WBC 5.2 10^3/uL (4.0-10.0) 04/19/22 04:11 RBC 4.75 10^6/uL (4.1-5.3) 04/19/22 04:11 Hgb 12.8 g/dL (11.7-16.6) 04/19/22 04:11 Hct 40.3 % (42.0-52.0) L 04/19/22 04:11 MCV 84.8 fl (80-94) 04/19/22 04:11 MCH 26.9 pg (28.0-34.0) L 04/19/22 04:11 MCHC 31.8 g/dL (30.0-36.0) 04/19/22 04:11 RDW 14.4 % (12.1-15.1) 04/19/22 04:11 Plt Count 197 10^3/cmm (130-400) 04/19/22 04:11 MPV 12.1 fL (7.4-10.4) H 04/19/22 04:11 Neut % (Auto) 60.7 % 04/19/22 04:11 Lymph % (Auto) 24.9 % 04/19/22 04:11 [place] % (Auto) 12.2 % 04/19/22 04:11 Eos % (Auto) 0.8 % 04/19/22 04:11 Baso % (Auto) 0.4 % 04/19/22 04:11 Neut # (Auto) 3.13 10^3/uL (1.8-7.7) 04/19/22 04:11 Lymph # (Auto) 1.3 10^3/uL (0.8-4.8) 04/19/22 04:11 [place] # (Auto) 0.6 10^3/uL (0.2-0.9) 04/19/22 04:11 Eos # (Auto) 0.0 10^3/uL (0.0-0.8) 04/19/22 04:11 Baso # (Auto) 0.0 10^3/uL (0.0-0.1) 04/19/22 04:11 Nucleated RBC % (auto) 0 % 04/19/22 04:11 Nucleated RBCs # 0.0 /100WBC 04/19/22 04:11 PT 14.10 SECONDS (12.1-14.9) 04/19/22 04:11 INR 1.06 (0.8-1.2) 04/19/22 04:11 Sodium 132 mmol/L (136-145) L 04/19/22 04:11 Potassium 4.4 mmol/L (3.5-5.1) 04/19/22 04:11 Chloride 95 mmol/L (98-107) L 04/19/22 04:11 Carbon Dioxide 23 mmol/L (22-29) 04/19/22 04:11 Anion Gap 18.4 (5-19) 04/19/22 04:11 BUN 30 mg/dL (6-20) H 04/19/22 04:11 Creatinine 1.2 mg/dL (0.7-1.2) 04/19/22 04:11 GFR Calculation 65.5 mL/min (90-130) L 04/19/22 04:11 Glucose 204 mg/dL (65-115) H 04/19/22 04:11 Calculated Osmolality 286 mOsm/kg (285-295) 04/19/22 04:11 Calcium 8.5 mg/dL (8.5-10.5) 04/19/22 04:11 Total Bilirubin 0.5 mg/dL (0.15-1.2) 04/19/22 04:11 AST 41 U/L (0-40) H 04/19/22 04:11 ALT 39 U/L (0-41) 04/19/22 04:11 Alkaline Phosphatase 164 U/L (40-130) H 04/19/22 04:11 Troponin T Baseline 1141 ng/L (0-15) H* 04/19/22 04:11 NT-Pro-B Natriuret Pep 4646 pg/mL (0-125) H 04/19/22 04:11 Total Protein 6.6 g/dL (6.6-8.7) 04/19/22 04:11 Albumin 3.7 g/dL (3.5-5.2) 04/19/22 04:11 Globulin 2.9 g/dL (1.3-4.6) 04/19/22 04:11 Critical Care Time Critical Care Time: Critical Care Time: Yes Total Critical Care Time: 45 Attestation: The high probability of a clinically significant, sudden or life threatening deterioration of the patient's cv system(s) required my full and direct attention, intervention and personal management. The critical care time is as shown. This time is in addition to time spent performing any reported procedures but includes the following: [x] Data and vital sign review and interpretation [x] Patient assessment, examination and intervention [x] Documentation [x] Medication orders and management Discharge Plan Discharge Patient Disposition: Admitted As Inpatient Admit Provider: Carine Candelario Clinical Impression: Cardiomyopathy, Community acquired pneumonia, Non-ST elevation ND (NSTEMI) Condition: Stable Coding Level of Care Code ED Farm Loan Representative for Chg Fwd Exam Comprehensive
--- NOTE | 2022-04-19 04:14 | ECG_ITS ---
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 Measurements Intervals [place] Rate: 92 P: 78 ME: 141 QRS: 78 QRSD: 83 T: 7 QT: 359 QTc: 445 Interpretive Statements SINUS RHYTHM LOW QRS VOLTAGE [QRS DEFLECTION < 0.5/1.0 mV IN LIMB/CHEST LEADS] ANTERIOR MYOCARDIAL INFARCTION , PROBABLY RECENT Compared to ECG 04/19/2022 04:02:42 No significant changes Electronically Signed On 04-20-2022 9:26:39 SOFTWARE PACKAGER by Mey Del Valle M.D. [email or web address]
[2022-04-19 04:28] LABS: Basophils % 0.4 %; Eosinophils % 0.8 %; Hematocrit 40.3 % (42.0-52.0); Hemoglobin 12.8 g/dL (11.7-16.6); Lymphocytes # 1.3 10^3/uL (0.8-4.8); Lymphocytes % 24.9 %; Mean Corpuscular HGB Conc 31.8 g/dL (30.0-36.0); Mean Corpuscular Hemoglobin 26.9 pg (28.0-34.0); Mean Corpuscular Volume 84.8 fl (80-94); Mean Platelet Volume 12.1 fL (7.4-10.4); Monocytes # 0.6 10^3/uL (0.2-0.9); Monocytes % 12.2 %; Neutrophils # 3.13 10^3/uL (1.8-7.7); Neutrophils % 60.7 %; Nucleated Red Blood Cells % 0 %; Platelet Count 197 10^3/cmm (130-400); Red Blood Count 4.75 10^6/uL (4.1-5.3); Red Cell Distribution Width 14.4 % (12.1-15.1); White Blood Count 5.2 10^3/uL (4.0-10.0)
[2022-04-19 04:39] LABS: INR 1.06 (0.8-1.2)
[2022-04-19 04:53] LABS: Alanine Aminotransferase 39 U/L (0-41); Albumin Level 3.7 g/dL (3.5-5.2); Alkaline Phosphatase 164 U/L (40-130); Anion Gap 18.4 (5-19); Aspartate Amino Transferase 41 U/L (0-40); Blood Urea Nitrogen 30 mg/dL (6-20); Calcium 8.5 mg/dL (8.5-10.5); Carbon Dioxide 23 mmol/L (22-29); Chloride 95 mmol/L (98-107); Globulin 2.9 g/dL (1.3-4.6); Glomerular Filtration Rate 65.5 mL/min (90-130); Glucose 204 mg/dL (65-115); NT Pro B Type Natriuretic Pept 4646 pg/mL (0-125); Osmolality Calculated 286 mOsm/kg (285-295); Potassium 4.4 mmol/L (3.5-5.1); Sodium 132 mmol/L (136-145); Total Bilirubin 0.5 mg/dL (0.15-1.2); Total Protein 6.6 g/dL (6.6-8.7)
[2022-04-19] MEDS: cefTRIAXone 1,000 MG in sodium chloride 0.9% (plus) 50 ML 100 MG IV (05:11)
[2022-04-19 05:18] LABS: Troponin(5th) Baseline 1141 ng/L (0-15)
[2022-04-19] MEDS: azithromycin 500 MG in sodium chloride 0.9% 250 ML 250 MG IV (05:23)
[2022-04-19 05:43] LABS: Influenza A by IFA negative (Negative); Influenza B by IFA negative (Negative); SARS Covid-2 Antigen negative (Negative)
[2022-04-19] MEDS: enoxaparin 100 mg/mL Syringe 90 MG SUBCUT ×2 (05:43→18:29)
--- NOTE | 2022-04-19 06:27 | P.HP_ITS ---
Providers/Chief Complaint Admitting Physician: Carine Candelario MD Chief Complaint: sob History of Present Illness Alvaro Price is a 46 year old male recently had balloon angioplasty of RCA, LAD lesion was not intervened because of hypotension and CHF exacerbation, patient was recommended to go for staged procedure, he was diagnosed with hypoglycemia worsening of type 2 diabetes, CHF exacerbation, systolic/ischemic cardiomyopathy LifeVest was requested as well during last visit when Dr. Dotson evaluated him. He is returning back because of worsening of shortness of breath. Patient is stating that since his discharge he never felt better. He is experiencing orthopnea, PND, weight gain. He has not noticed any chest pain but he is not able to breathe at all that prompted his visit to the ER In the ER EKG was concerning for STEMI however previous EKG looks the same this was discussed with Dr. Giang. He will be kept n.p.o. his troponins are extremely high he is not complaining of any active chest pain. ACS protocol initiated. Concern for community-acquired pneumonia as well he has been given antibiotics. Not septic. Patient is stating that he is not responding very well to Lasix. Review of Systems Const: Reports: chills Eyes: Denies: change in vision ENMT: Denies: throat pain Card: Reports: chest pain, edema, swelling of feet/ankles, dyspnea on exertion and orthopnea Resp: Reports: dyspnea GI: Denies: abdominal pain : Denies: flank pain Musc: Denies: neck pain Skin/Breast: Denies: rash Neuro: Denies: headache(s) Psych: Denies: anxiety Endo: Denies: polyuria Timothy/Lymph: Denies: easy bruising All/Imm: Denies: urticaria Medications/Allergies Home Medications Medication Instructions Recorded Confirmed Last Taken Type albuterol sulfate 90 mcg/actuation 2 puff inhalation 6XD PRN 04/10/22 04/10/22 Unknown Rx aerosol inhaler (Ventolin HFA) shortness of breath or wheezing #8.5 grams budesonide-formoterol HFA 160 2 puff inhalation Q12H #10.2 grams 04/10/22 04/10/22 Unknown Rx mcg-4.5 mcg/actuation aerosol inhaler (Symbicort) doxycycline hyclate 100 mg capsule 100 mg PO BID 10 days #20 caps 04/10/22 04/10/22 Unknown Rx insulin glargine 100 unit/mL 20 unit (0.2 mL) SUBCUT BEDTIME 04/10/22 04/10/22 Unknown Rx subcutaneous solution #15 mL insulin lispro 100 unit/mL 2 unit (0.02 mL) SUBCUT AC #15 mL 04/10/22 04/10/22 Unknown Rx subcutaneous pen (Humalog KwikPen (U-100) Insulin) metformin 1,000 mg tablet,extended 1,000 mg PO DAILY #90 tabs 04/10/22 04/10/22 Unknown Rx release 24hr methylprednisolone 4 mg tablets in See Rx Instructions PO PER PKG DIR 04/10/22 04/10/22 Unknown Rx a dose pack (Medrol (Cipriano)) #21 ea promethazine-DM 6.25 mg-15 mg/5 mL 5 - 10 ml PO Q6H PRN cough #200 mL 04/10/22 04/10/22 Unknown Rx oral syrup aspirin 81 mg tablet,delayed 81 mg PO DAILY #100 tabs 04/14/22 Unknown Rx release atorvastatin 40 mg tablet 80 mg PO BEDTIME #30 tabs 04/14/22 Unknown Rx clopidogrel 75 mg tablet 75 mg PO DAILY #30 tabs 04/14/22 Unknown Rx furosemide 40 mg tablet 40 mg PO DAILY@0800 #30 tabs 04/14/22 Unknown Rx lisinopril 2.5 mg tablet 2.5 mg PO DAILY #30 tabs 04/14/22 Unknown Rx metformin 500 mg tablet 500 mg PO BID #60 tabs 04/14/22 Unknown Rx metoprolol tartrate 25 mg tablet 25 mg PO BID #60 tabs 04/14/22 Unknown Rx nitroglycerin 0.4 mg sublingual 0.4 mg sublingual Q5M PRN Chest 04/14/22 Unknown Rx tablet Pain #25 tabs sitagliptin 50 mg tablet (Januvia) 50 mg PO DAILY #30 tabs 04/14/22 Unknown Rx spironolactone 25 mg tablet 12.5 mg PO DAILY #30 tabs 04/14/22 Unknown Rx Allergies Allergy/AdvReac Type Severity Reaction Status Date / Time Sulfa (Sulfonamide Allergy ALGY-Rash Verified 04/18/22 08:50 Antibiotics) PFSH Acute PFSH: Medical History Abnormal EKG Abscess of right foot excluding toes Cardiomyopathy Cellulitis of right foot CHF (congestive heart failure) Diabetes Diabetic peripheral neuropathy associated with type 2 diabetes mellitus Elevated troponin Foot abscess, right Impaired glucose tolerance Myocardial infarction, inferior wall No pertinent family history No pertinent past medical history No pertinent past medical history Non-pressure chronic ulcer of other part of right foot with necrosis of muscle Pressure ulcer with full thickness skin loss involving damage or necrosis of subcutaneous tissue Social History Smoking and tobacco status: current every day smoker smokeless tobacco Smokeless tobacco user: snuff Smokeless tobacco details: can per day x 40 yrs Second hand smoke exposure: No Alcohol intake: current Alcohol intake frequency: holidays/special occasions only Alcohol type: beer Adopted: No Caregiver/support person: Yes Lives independently: Yes Household members: other Marital status: Unknown service: No Current occupational status: employed Current occupation: [employer] History of recent travel: No Current gender identity: Male Special wagner needs: No Vitals/I&O/Wt Last Vital Signs Temp 98.0 F 04/19/22 03:56 Pulse 97 04/19/22 05:45 Resp 17 04/19/22 05:45 BP 84/63 04/19/22 05:54 Pulse Ox 93 04/19/22 05:45 O2 Del Method 04/19/22 05:45 O2 Flow Rate 3 04/19/22 04:45 04/18/22 04/18/22 04/19/22 14:59 22:59 06:59 Intake Total 50 / 50 Balance 50 / 50 Weight last 48 hrs Weight 88.904 kg Physical Exam Narrative: Clinically patient is fluid overloaded Currently sitting upright Not on oxygen Anxious appearing No active chest pain S1, S2 variable Abdomen soft Lower extremity edema Family at the bedside Awake and alert Nonfocal neuro exam Data 04/19/22 04:11 04/19/22 04:11 Micro: Microbiology 04/19/22 05:35 Blood Culture - Preliminary Blood SPECIMEN COLLECTED 04/19/22 05:30 Blood Culture - Preliminary Blood SPECIMEN COLLECTED A&P Assessment and plan (1) Community acquired pneumonia: (2) Non-ST elevation CA (NSTEMI): (3) CHF (congestive heart failure): Qualifiers: Heart failure type: systolic Heart failure chronicity: acute Qualified Code(s): I50.21 - Acute systolic (congestive) heart failure (4) Diabetes: Plan NSTEMI ACS initiated Recent angiogram showed RCA and LAD lesion Dr. Giang consulted Started Lovenox Continue aspirin and Plavix N.p.o. for now Patient was recommended LifeVest by Dr. Dotson As per the patient he is not responding very well to Lasix, Dr. Dunbar increase his Lasix dose on Sunday, he has not noticed increased urine output Acute systolic CHF exacerbation Ischemic cardiomyopathy Continue diuresis Type 2 diabetes: Patient does not have glucometer to check glucose at home Continue moderate dose sliding scale and insulin Community acquired pneumonia, start cefepime and Zosyn, check MRSA PCR I do daphne sultana his x-ray showing pulmonary congestion instead of consolidation Full code N.p.o. 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
[2022-04-19 06:39] LABS: Troponin 5 2HR 947.3 ng/L (0-15)
[2022-04-19] MEDS: acetaminophen 1,000 MG/100 ML PIGGYBACK 400 MG IV (06:50)
[2022-04-19] MEDS: FUROsemide 10 mg/mL SDV 4mL 40 MG IVP ×2 (08:09→19:59)
[2022-04-19] MEDS: piperacillin-tazobactam 3.375 GM in sodium chloride 0.9% (plus) 50 ML IV (08:11)
[2022-04-19] MEDS: clopidogrel 75 mg Tablet PO (08:15)
[2022-04-19] MEDS: aspirin 81 mg EC Tablet PO (08:15)
[2022-04-19 08:26] LABS: Glucose Point of Care 209 mg/dL (70-110)
[2022-04-19] MEDS: insulin lispro 100 unit/1 mL SUBCUT ×2 (08:29→14:18)
--- NOTE | 2022-04-19 09:17 | PC.PHAR ---
PT STS HE NEVER FILLED HIS SCRIPT FOR HUMALOG OR SEMGLEE PEN DUE TO THE COST OF THE SCRIPT- PT ONLY TAKING METFORMIN AND JANUVIA PRESCRIBED AT THIS TIME
--- NOTE | 2022-04-19 09:18 | ECG_ITS ---
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 Measurements Intervals [place] Rate: 91 P: 69 MT: 137 QRS: 38 QRSD: 88 T: 160 QT: 365 QTc: 449 Interpretive Statements SINUS RHYTHM LOW QRS VOLTAGE IN EXTREMITY LEADS [QRS DEFLECTION < 0.5 mV IN LIMB LEADS] ANTEROSEPTAL MYOCARDIAL INFARCTION , OF INDETERMINATE AGE [40+ ms Q WAVE IN V1-V4] MODERATE T-WAVE ABNORMALITY, CONSIDER LATERAL ISCHEMIA Compared to ECG 04/19/2022 04:14:48 T-wave abnormality now present Possible ischemia now present Myocardial infarct finding still present Electronically Signed On 04-19-2022 10:14:15 INCOME TAX PREPARER by Mey Del Valle M.D. [id number]
[2022-04-19] MEDS: meropenem 500 MG in sodium chloride 0.9% (plus) 50 ML 100 MG IV ×2 (10:21→17:16)
--- NOTE | 2022-04-19 10:33 | P.CONIM_ITS ---
Providers/Reason For Consult Consulting Physician/Specialty*: Rakan Herndon MD/ Cardiology Reason for Consult*: Congestive heart failure/Troponin elevation Requesting Physician: Dr Dutton Attending Physician: Cornell Zurita MD History of Present Illness History of Present Illness Alvaro Price is a 46 year old male with a recent history of TN and congestive heart failure when he was found to have occluded RCA that underwent balloon angioplasty. Mid LAD has critical stenosis which was noted to be a small caliber vessel. It was not revascularized is was showing severe LV dysfun ction and possible stress testing to assess ischemic burden/viability was recommended. He was discharged home but says he continued having shortness of breath to the point he was not able to lay down. Also cannot walk any significant distance without having dyspnea. Blood pressure is borderline low. EKG showed persistent ST elevations in anterior lateral/anterior leads. This is persistent from previous admission. Initial troponin was thousand that decreased to 2-hour recheck. NT pro BNP was elevated and was approx 4600. Review of Systems 2 Const: Reports: chills Eyes: Denies: change in vision ENMT: Denies: throat pain Card: Reports: chest pain, edema, swelling of feet/ankles, dyspnea on exertion and orthopnea Resp: Reports: dyspnea GI: Denies: abdominal pain : Denies: flank pain Musc: Denies: neck pain Skin/Breast: Denies: rash Neuro: Denies: headache(s) Psych: Denies: anxiety Endo: Denies: polyuria Timothy/Lymph: Denies: easy bruising All/Imm: Denies: urticaria Medications/Allergies Home Medications Medication Instructions Recorded Confirmed Last Taken Type albuterol sulfate 90 mcg/actuation 2 puff inhalation 6XD PRN 04/10/22 04/19/22 Unknown Rx aerosol inhaler (Ventolin HFA) shortness of breath or wheezing #8.5 grams budesonide-formoterol HFA 160 2 puff inhalation Q12H #10.2 grams 04/10/22 04/19/22 Unknown Rx mcg-4.5 mcg/actuation aerosol inhaler (Symbicort) doxycycline hyclate 100 mg capsule 100 mg PO BID 10 days #20 caps 04/10/22 04/19/22 Unknown Rx insulin glargine 100 unit/mL 20 unit (0.2 mL) SUBCUT BEDTIME 04/10/22 04/19/22 Unknown Rx subcutaneous solution #15 mL insulin lispro 100 unit/mL 2 unit (0.02 mL) SUBCUT AC #15 mL 04/10/22 04/19/22 Unknown Rx subcutaneous pen (Humalog KwikPen (U-100) Insulin) promethazine-DM 6.25 mg-15 mg/5 mL 5 - 10 ml PO Q6H PRN cough #200 mL 04/10/22 04/19/22 Unknown Rx oral syrup aspirin 81 mg tablet,delayed 81 mg PO DAILY #100 tabs 04/14/22 04/19/22 Unknown Rx release atorvastatin 40 mg tablet 80 mg PO BEDTIME #30 tabs 04/14/22 04/19/22 Unknown Rx clopidogrel 75 mg tablet 75 mg PO DAILY #30 tabs 04/14/22 04/19/22 Unknown Rx furosemide 40 mg tablet 40 mg PO DAILY@0800 #30 tabs 04/14/22 04/19/22 Unknown Rx lisinopril 2.5 mg tablet 2.5 mg PO DAILY #30 tabs 04/14/22 04/19/22 Unknown Rx metoprolol tartrate 25 mg tablet 25 mg PO BID #60 tabs 04/14/22 04/19/22 Unknown Rx nitroglycerin 0.4 mg sublingual 0.4 mg sublingual Q5M PRN Chest 04/14/22 04/19/22 Unknown Rx tablet Pain #25 tabs sitagliptin 50 mg tablet (Januvia) 50 mg PO DAILY #30 tabs 04/14/22 04/19/22 Unknown Rx spironolactone 25 mg tablet 12.5 mg PO DAILY #30 tabs 04/14/22 04/19/22 Unknown Rx acetaminophen 325 mg capsule 650 mg PO QID PRN Pain 04/19/22 04/19/22 Unknown History (Tylenol) metformin 500 mg tablet 500 mg PO BID 04/19/22 04/19/22 Unknown History Allergies Allergy/AdvReac Type Severity Reaction Status Date / Time Sulfa (Sulfonamide Allergy ALGY-Rash Verified 04/19/22 09:15 Antibiotics) Current Medications Generic Name Dose Route Start Last Admin Trade Name Freq PRN Reason Stop Dose Admin Aspirin 81 mg 04/19/22 09:00 04/19/22 08:15 Aspirin 81 Mg Ec Tablet PO 81 mg DAILY BARBI Administration Clopidogrel Bisulfate 75 mg 04/19/22 09:00 04/19/22 08:15 Clopidogrel 75 Mg Tablet PO 75 mg DAILY BARBI Administration Furosemide 40 mg 04/19/22 08:00 04/19/22 08:09 Furosemide 10 Mg/Ml Sdv 4ml IVP 40 mg Q12H BARBI Administration Meropenem 500 mg/ Sodium 50 mls @ 100 mls/hr 04/19/22 10:00 04/19/22 10:21 Chloride IV 100 mls/hr Q8H BARBI Administration Insulin Human Lispro 0 unit 04/19/22 08:00 04/19/22 08:29 Insulin Lispro 100 Unit/1 Ml SUBCUT 6 unit TIDWM BARBI Administration Protocol Lisinopril 2.5 mg 04/19/22 09:00 04/19/22 10:13 Lisinopril 2.5 Mg Tablet PO Not Given DAILY BARBI PFSH Acute 2 PFSH: Medical History Abnormal EKG Abscess of right foot excluding toes Cardiomyopathy Cellulitis of right foot CHF (congestive heart failure) Diabetes Diabetic peripheral neuropathy associated with type 2 diabetes mellitus Elevated troponin Foot abscess, right Impaired glucose tolerance Myocardial infarction, inferior wall No pertinent family history No pertinent past medical history No pertinent past medical history Non-pressure chronic ulcer of other part of right foot with necrosis of muscle Pressure ulcer with full thickness skin loss involving damage or necrosis of velasco bcutaneous tissue Social History Smoking and tobacco status: current every day smoker smokeless tobacco Smokeless tobacco user: snuff Smokeless tobacco details: can per day x 40 yrs Second hand smoke exposure: No Alcohol intake: current Alcohol intake frequency: holidays/special occasions only Alcohol type: beer Adopted: No Caregiver/support person: Yes Lives independently: Yes Household members: other Marital status: Unknown service: No Current occupational status: employed Current occupation: [employer] History of recent travel: No Current gender identity: Male Special wagner needs: No Vitals/I&O/Wt Last Vital Signs Temp 98.0 F 04/19/22 03:56 Pulse 93 04/19/22 09:33 Resp 22 H 04/19/22 07:00 BP 92/64 04/19/22 07:49 Pulse Ox 94 04/19/22 09:33 O2 Del Method 04/19/22 09:33 O2 Flow Rate 4 04/19/22 09:33 04/18/22 04/19/22 04/19/22 22:59 06:59 14:59 Intake Total 300 / 300 100 / 100 Output Total 625 / 625 Balance 300 / 300 -525 / -525 Weight last 48 hrs Weight 196 lb Physical Exam Narrative: GENERAL: Patient is alert, awake and oriented x3. [] NECK: No jugular vein distension. [] HEENT: No cyanosis. No icterus. No pallor. [] HEART: Regular S1 and S2. LUNGS: Decreased breath sounds with mild crackles. CENTRAL NERVOUS SYSTEM: Grossly nonfocal. [] EXTREMITIES: Lower extremities with 1+ edema bilaterally. Pulses palpable in the lower extremities, both dorsalis pedis and posterior tibial. [] Data 04/19/22 04:11 04/19/22 04:11 Micro: Microbiology 04/19/22 05:35 Blood Culture - Preliminary Blood SPECIMEN COLLECTED 04/19/22 05:30 Blood Culture - Preliminary Blood SPECIMEN COLLECTED A&P Assessment and plan (1) Troponin level elevated: (2) CHF (congestive heart failure): Qualifiers: Heart failure chronicity: acute Heart failure type: systolic Qualified Code(s): I50.21 - Acute systolic (congestive) heart failure (3) Diabetes: (4) Diabetic peripheral neuropathy associated with type 2 diabetes mellitus: Plan Patient has presented with congestive heart failure. EKG is unchanged from before and troponins have not trended up. He will need aggressive diuretic therapy. Also possibility of pneumonia. Is getting antibiotics per primary te am Strict I&O's Once he is euvolemic, will obtain a Lexiscan to assess ischemia in LAD territory/viability. Based on that recommendations regarding revascularization of LAD will be made. Thank you for involving us with care of this patient. We will continue to follow. Please call with questions Consult Attestations Medical Necessity Statement: Care expected to cross 2 midnights. Coding Level of Care Code Acute Surgical Scrub Tech for [facility] Fwd Diagnoses Troponin level elevated R77.8 CHF (congestive heart failure) I50.21 Heart failure chronicity: acute Heart failure type: systolic Diabetes E11.9 Diabetic peripheral neuropathy associated with type 2 diabetes mellitus E11.42
[2022-04-19 11:08] LABS: Troponin 5 6HR 1065 ng/L (0-15); Troponin 5 6HR Delta -76 ng/L (0-12)
[2022-04-19 11:39] LABS: Glucose Point of Care 144 mg/dL (70-110)
--- NOTE | 2022-04-19 14:19 | PC.NURSE ---
lunch time insulin administration delayed waiting on meal. Patient was originally NPO, but was changed.
[2022-04-19] MEDS: vancomycin 1,250 MG/250 ML PIGGYBACK 250 MG IV (15:23)
[2022-04-19] MEDS: benzonatate 100 mg Capsule 200 MG PO (17:24)
[2022-04-19 17:43] LABS: Glucose Point of Care 125 mg/dL (70-110)
[2022-04-19] MEDS: ALPRAZolam 0.5 mg Tablet 0.25 MG PO (18:29)
--- NOTE | 2022-04-19 18:38 | PC.NURSE ---
Late note: REieved patient from ER staff at 0801. BP: 96/67, HR: 85, TEmp: 98.2, RR: 20, SPO2: 93% on 3 liters. Patient has no complaints at this time.
--- NOTE | 2022-04-19 19:08 | PC.NURSE ---
SHift SUmmary: Uneventful shift. Patient has rested in bed for most of the day with low energy, but near the end of the shift he became more active. Ambulated in liriano aproximately 100 feet. on 3L NC. DIet advanced form NPO to Cardiac. Near end of shift, patient has started to become anxious. Described gibson closing in on him/claustrophobia. Said it has happened before when he is in the hospital, agitated from covered in all the monitoring devices, wires, can't get comfortable constantly wearing the lifevest, oxygen in his nose is causing irritation, just can't get comfortable. Ambulation in the liriano, opening up curtains, and rearranging lines did not help reduce feelings of claustrophobia. PRN xanax ordered by Dr Zurita. Total urine output during day shift has been charted as 625mL, but true amount of urine was greater. Patient urinated into the toilet twice without it being caught in a measuring device and therefore went uncharted.
[2022-04-19] MEDS: atorvastatin 40 mg Tablet 80 MG PO (20:56)
[2022-04-19] MEDS: insulin glargine 100 units/1 mL 20 UNIT SUBCUT (20:58)
[2022-04-19 21:57] LABS: Glucose Point of Care 192 mg/dL (70-110)
[2022-04-20] VITALS (51 sets, daily range): BP systolic 86–131; BP diastolic 53–88; PULSE 92–133; RESP 19–31; TEMP 36.3–37.7; O2SAT 84–95
--- NOTE | 2022-04-20 | PC.NURSE ---
Cough Patient complaining of persistent cough accompanied by pain throughout the evening. Dr. Candelario contacted at [phone] and at [phone]; order placed by physician for 10 ml robitussin PO once. See MAR for details.
[2022-04-20] MEDS: guaiFENesin-codeine UDC 10 mL PO (00:09)
[2022-04-20] MEDS: meropenem 500 MG in sodium chloride 0.9% (plus) 50 ML 100 MG IV ×2 (01:26→10:27)
[2022-04-20] MEDS: morphine IR 15 mg Tablet PO ×2 (01:43→07:30)
[2022-04-20] MEDS: vancomycin 1,250 MG/250 ML PIGGYBACK 250 MG IV ×2 (02:29→15:53)
[2022-04-20 03:14] LABS: Basophils % 0.4 %; Eosinophils # 0.1 10^3/uL (0.0-0.8); Eosinophils % 1.5 %; Hematocrit 37.7 % (42.0-52.0); Hemoglobin 11.9 g/dL (11.7-16.6); Lymphocytes # 1.2 10^3/uL (0.8-4.8); Lymphocytes % 25.3 %; Mean Corpuscular HGB Conc 31.6 g/dL (30.0-36.0); Mean Corpuscular Hemoglobin 26.6 pg (28.0-34.0); Mean Corpuscular Volume 84.2 fl (80-94); Mean Platelet Volume 12.2 fL (7.4-10.4); Monocytes # 0.5 10^3/uL (0.2-0.9); Monocytes % 10.3 %; Neutrophils # 2.82 10^3/uL (1.8-7.7); Neutrophils % 61.6 %; Nucleated Red Blood Cells % 0 %; Platelet Count 185 10^3/cmm (130-400); Red Blood Count 4.48 10^6/uL (4.1-5.3); Red Cell Distribution Width 14.6 % (12.1-15.1); White Blood Count 4.6 10^3/uL (4.0-10.0)
[2022-04-20 03:49] LABS: Blood Urea Nitrogen 22 mg/dL (6-20); Carbon Dioxide 26 mmol/L (22-29); Chloride 96 mmol/L (98-107); Glomerular Filtration Rate 91.3 mL/min (90-130); Glucose 137 mg/dL (65-115); Magnesium 1.8 mg/dL (1.7-2.3); Osmolality Calculated 283 mOsm/kg (285-295); Sodium 134 mmol/L (136-145)
[2022-04-20] MEDS: enoxaparin 100 mg/mL Syringe 90 MG SUBCUT (06:08)
[2022-04-20] MEDS: benzonatate 100 mg Capsule 200 MG PO ×3 (07:20→21:37)
[2022-04-20] MEDS: FUROsemide 10 mg/mL SDV 4mL 40 MG IVP (07:23)
--- NOTE | 2022-04-20 07:31 | P.PN_ITS ---
Subjective Subjective: Patient was seen and examined this morning, was complaining of, severe coughing, as well as left-sided chest pain with inspiration, a.m. chest x-ray done today has shown: Interval development of right lower lobe infiltrates. Medications: Medication Review Details: Generic Name Dose Route Start Last Admin Trade Name Freq PRN Reason Stop Dose Admin Alprazolam 0.25 mg 04/19/22 18:22 04/19/22 18:29 Alprazolam 0.5 M g Tablet PO 0.25 mg TID PRN Administration ANXIETY Aspirin 81 mg 04/19/22 09:00 04/19/22 08:15 Aspirin 81 Mg Ec Tablet PO 81 mg DAILY BARBI Administration Atorvastatin Calci um 80 mg 04/19/22 21:00 04/19/22 20:56 Atorvastatin 40 Mg Tablet PO 80 mg BEDTIME BARBI Administration Benzonatate 200 mg 04/19/22 17:13 04/20/22 07:20 Benzonatate 100 Mg Capsule PO 200 mg TID PRN Administration COUGH Clopidogrel Bisulf ate 75 mg 04/19/22 09:00 04/19/22 08:15 Clopidogrel 75 M g Tablet PO 75 mg DAILY BARBI Administration Enoxaparin Sodium 90 mg 04/19/22 18:45 04/20/22 06:08 Enoxaparin 100 M g/Ml Syringe SUBCUT 90 mg Q12H BARBI Administration Furosemide 40 mg 04/19/22 08:00 04/20/22 07:23 Furosemide 10 Mg /Ml Sdv 4ml IVP 40 mg Q12H BARBI Administration Meropenem 500 mg/ Sodium 50 mls @ 100 mls/ hr 04/19/22 10:00 04/20/22 01:59 Chloride IV Infused Q8H BARBI Infusion Vancomycin/PEG/NAD A/Lysine/Water 1,250 mg in 250 m ls @ 250 mls/hr 04/19/22 15:00 04/20/22 04:03 Vancocin IV Infused Q12H BARBI Infusion Insulin Glargine 20 unit 04/19/22 21:00 04/19/22 20:58 Insulin Glargine 100 Units/1 Ml SUBCUT 20 unit BEDTIME BARBI Administration Insulin Human Lisp ro 0 unit 04/19/22 08:00 04/19/22 17:14 Insulin Lispro 1 00 Unit/1 Ml SUBCUT Not Given TIDWM BARBI Protocol Lisinopril 2.5 mg 04/19/22 09:00 04/19/22 10:13 Lisinopril 2.5 M g Tablet PO Not Given DAILY [facility] Morphine Sulfate 15 mg 04/19/22 07:22 04/20/22 07:30 Morphine Ir 15 M g Tablet PO 15 mg Q6H PRN Administration MODERATE PAIN Vitals/I&O/Wt Last Vital Signs Temp 98.7 F 04/20/22 04:00 Pulse 99 04/20/22 06:00 Resp 21 H 04/20/22 06:00 BP 87/59 04/20/22 06:00 Pulse Ox 92 04/20/22 06:00 O2 Del Method 04/20/22 04:00 O2 Flow Rate 8 04/20/22 04:00 04/19/22 04/20/22 04/20/22 22:59 06:59 14:59 Intake Total 300 / 690 800 / 1490 Output Total 875 / 1500 775 / 775 Balance -575 / -810 800 / -10 -775 / -775 Weight last 48 hrs Weight 88.904 kg Physical Exam Const: COMMON NORMALS: patient oriented x3 Resp: OTHER: Diminished air entry bilaterally, with bilateral basal crackles Cardio: COMMON NORMALS: regular rate, regular rhythm, S1 normal heart sound present, S2 normal heart sound present, No gallops present (Cardio), No murmurs present (Cardio), No rub (Cardio) and Peripheral pulses 2+ throughout RATE: regular rate RHYTHM: regular rhythm HEART SOUNDS: S1 normal heart sound present and S2 normal heart sound present PERIPHERAL PULSES: Peripheral pulses 2+ throughout GI: COMMON NORMALS: Normal to inspection, nondistended, normoactive bowel sounds present, Soft to palpation, non-tender, No hepatosplenomegaly present and no masses AUSCULTATION: Yes normoactive bowel sounds PALPATION: Yes Soft to palpation and Yes No hepatosplenomegaly present RECTAL EXAM: Yes deferred Extremity: NARRATIVE EXTREMITY EXAM: 1+ bilateral lower extremity pitting edema Neuro: COMMON NORMALS: patient oriented x3 Data 04/20/22 01:53 04/20/22 01:53 Micro: Microbiology 04/19/22 05:35 Blood Culture - Preliminary Blood NEGATIVE TO DATE 04/19/22 05:30 Blood Culture - Preliminary Blood NEGATIVE TO DATE A&P Assessment and plan (1) Community acquired pneumonia: (2) Non-ST elevation PR (NSTEMI): (3) CHF (congestive heart failure): Qualifiers: Heart failure chronicity: acute Heart failure type: systolic Qualified Code(s): I50.21 - Acute systolic (congestive) heart failure (4) Diabetes: Plan 46-year-old male with past medical history of DM,coronary artery disease status post PTCA of RCA, with existing significant mid LAD lesion, not intervene at that time because of hypotension and CHF exacerbation, and was due for the staged procedure, discharged on LifeVest was admitted with chief complaint of worsening shortness of breath with minimal exertion , PND , orthopnea ,worsening bilateral lower extremity swelling, worsening cough. Currently being managed for. Assessment: Decompensated heart failure with reduced ejection fraction NSTEMI Pneumonia History of coronary artery disease s/p recent PTCA to RCA Diabetes Plan: Blood culture:NTD MRSA PCR negative Follow sputum gram stain and culture Urine Legionella antigen Bacterial antigen panel D-dimer Monitor x-ray chest Currently on Lasix 60 twice daily as well as metolazone On lisinopril, aspirin statin Plavix Continue Lantus sliding scale insulin, monitor fingerstick glucose Monitor intake output charting Daily weight Monitor electrolytes Currently on broad-spectrum antibiotics vancomycin and meropenem Continue telemetry monitoring Cardiology on board CODE STATUS: Full code DVT prophylaxis: On Lovenox Attestations Medical Necessity Statement*: Patient is in hospital for management of decompensated heart failure. Time Spent in Patient Care: Greater than 35 minutes (>than 50% of time spent in counselling and/or direct pt care on unit) . Critical Care Time: The high probability of a clinically significant, sudden or life threatening deterioration of the patient's [] system(s) required my full and direct attention, intervention and personal management. The critical care time is as shown. This time is in addition to time spent performing any reported procedures but includes the following: [x] Data and vital sign review and interpretation [x] Patient assessment, examination and intervention [x] Documentation [x] Medication orders and management Critical Care Time (min): 30 Coding Level of Care Code Acute Workforce Development Program Director for [facility] Fw Diagnoses Community acquired pneumonia J18.9 Non-ST elevation PR (NSTEMI) I21.4 CHF (congestive heart failure) I50.21 Heart failure chronicity: acute Heart failure type: systolic Diabetes E11.9
[2022-04-20 07:43] LABS: Glucose Point of Care 115 mg/dL (70-110)
--- NOTE | 2022-04-20 08:18 | XR_ITS ---
WS: [id number] Exam: XR chest 1V portable [id number] Date/Time of Exam: 04/20/2022 8:40 AM Reason For Exam: increased O2 requirements, pink frothy sputum Comparison 04/19/2022. Left basal of consolidating infiltrate and atelectasis again noted and unchanged. Development of new right basal infiltrate noted. Heart size is within normal limits. No pneumothorax. The mediastinum an d osseous thorax are unremarkable. Monitoring leads superimpose the chest. XR/XR chest 1V portable [id number] IMPRESSION: 1. A new area of consolidating infiltrate and atelectasis in the right lower lo be since previous exam. Left lower lobe infiltrate and atelectasis unchanged.
[2022-04-20] MEDS: clopidogrel 75 mg Tablet PO (08:35)
[2022-04-20] MEDS: aspirin 81 mg EC Tablet PO (08:35)
[2022-04-20] MEDS: ALPRAZolam 0.5 mg Tablet 0.25 MG PO ×3 (08:36→21:37)
[2022-04-20] MEDS: FUROsemide 10 mg/mL SDV 2mL 20 MG IVP (08:36)
--- NOTE | 2022-04-20 08:38 | PC.NURSE ---
Patient oxygen requirements gave gone up overnight form 3 L to 7L. This morning they have Gone up to 8L. Patient has had a persistent dry cough, but he has now started to produce pink frothy sputum. Nurse alerted Dr Zurita and received orders for a chest Xray
--- NOTE | 2022-04-20 09:37 | PM.PN ---
Subjective Subjective: Patient is feeling slightly better. Diuresing well. Vitals/I&O/Wt Last Vital Signs Temp 97.3 F L 04/20/22 07:30 Pulse 98 04/20/22 09:30 Resp 21 H 04/20/22 09:30 BP 103/73 04/20/22 09:30 Pulse Ox 89 L 04/20/22 09:30 O2 Del Method 04/20/22 09:30 O2 Flow Rate 8 04/20/22 09:30 04/19/22 04/20/22 04/20/22 22:59 06:59 14:59 Intake Total 300 / 690 800 / 1490 50 / 50 Output Total 875 / 1500 775 / 775 Balance -575 / -810 800 / -10 -725 / -725 Weight last 48 hrs Weight 196 lb Physical Exam Narrative: GENERAL: Patient is alert, awake and oriented x3. [] NECK: No jugular vein distension. [] HEENT: No cyanosis. No icterus. No pallor. [] HEART: Regular S1 and S2. LUNGS: Decreased breath sounds with mild crackles. CENTRAL NERVOUS SYSTEM: Grossly nonfocal. [] EXTREMITIES: Lower extremities with 1+ edema bilaterally. Pulses palpable in the lower extremities, both dorsalis pedis and posterior tibial. [] Data 04/20/22 01:53 04/20/22 01:53 Micro: Microbiology 04/19/22 05:35 Blood Culture - Preliminary Blood NEGATIVE TO DATE 04/19/22 05:30 Blood Culture - Preliminary Blood NEGATIVE TO DATE A&P Assessment and plan (1) Troponin level elevated: (2) CHF (congestive heart failure): Qualifiers: Heart failure type: systolic Heart failure chronicity: acute Qualified Code(s): I50.21 - Acute systolic (congestive) heart failure (3) Diabetes: (4) Diabetic peripheral neuropathy associated with type 2 diabetes mellitus: Plan Lasix uptitrated to 60mg IV BID. We will add Metolazone 5mg daily. Strict I&O's Once he is euvolemic, will obtain a Lexiscan to assess ischemia in LAD territory/viability. Based on that recommendations regarding revascularization of LAD will be made. Thank you for involving us with care of this patient. We will continue to follow. Please call with questions Attestations Medical Necessity Statement*: Care expected to cross 2 midnights. Coding Level of Care Code Acute Clinical Informatics Physician for [facility] Fwd Diagnoses Troponin level elevated R77.8 CHF (congestive heart failure) I50.21 Heart failure type: systolic Heart failure chronicity: acute Diabetes E11.9 Diabetic peripheral neuropathy associated with type 2 diabetes mellitus E11.42
[2022-04-20] MEDS: metOLazone 5 MG Tablet PO (10:30)
--- NOTE | 2022-04-20 10:46 | PC.CHAP ---
Pastoral Care Encounter/Spiritual Assessment Type of Contact [] Declined manager ship visit [] Patient/Family/Request visit [] Outpatient visit [] Follow-up visit [] Physician referral [] Code/Alert [x] Routine visit [] Staff referral [] Actively dying [x] Patient sleeping [] Family support [] [] Out of room [] Palliative care [] [] Receiving care in room [] Pre-surgical visit [] Trauma [] Long length of stay [x] ICU visit [] Other: Relational/Emotional Strength [] Patient feels connected with others/family/visitors/staff [] Distress [] Loneliness/isolation [] Abandonment Spirituality of Patient [] Person of Raeann [] Attends Pentecostalism of their Raeann [] Believes in Prayer [] Reads Bible or Jehovah'S Witness materials [] There are Spiritual issues to be addressed 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[employer] Interventions [x] Prayer [] Active listening [] Non-anxious presence [] Spiritual/emotional support [] Crisis/trauma care [] Spiritual counseling [] Bereavement support [] Provided bereavement packet [] Provided Bible/devotional materials [] Provided toy/stuffed animal, coloring book to patient or family member [] Provided Communion [] Anointing/[place] [] Salvation [x] Completed spiritual assessment [] Other: Impact on Illness or Injury [] Angry [] Fearful [] Anxious [] Often cries [] Exhaustion [] Unable to work [] Unable to attend rastafari [] Unable to walk/stand [] Unable to read [] Unable to drive [] Unable to eat/drink [] Unable to sleep [] Unable to be with family [] Patient intubated [] Other: Summary Time spent with patient
[2022-04-20 11:26] LABS: Glucose Point of Care 129 mg/dL (70-110)
--- NOTE | 2022-04-20 14:38 | PC.NURSE ---
WHile family was visiting and patient was talking a lot, his saturations went from the low 90's to the mid 80's while talking. Heart rate increased as well from the mid 90's to 120-130. After family left however, heart rate and saturations did not recover. At rest, patient remains with a HR in the 130's. Due to nasal irrigation and patient frequently taking off cannula for brief periods to get relief, nurse changed oxygen appliance form a nasal cannula to an Oxymask. Oxygen had to be increased form 8LPM on the NC to 10lpm on the oxymask to once again achieve oxygen saturations of 90% or greater. NUrse has alerted Dr munoz to incrased heart rate and increased oxygen requirements. No new orders received.
[2022-04-20] MEDS: FUROsemide 10 mg/mL SDV 10mL 60 MG IVP (17:04)
[2022-04-20] MEDS: meropenem 500 MG in sodium chloride 0.9% (plus) 50 ML 50 MG IV (17:05)
[2022-04-20] MEDS: insulin lispro 100 unit/1 mL SUBCUT (17:21)
[2022-04-20 17:26] LABS: Glucose Point of Care 170 mg/dL (70-110)
--- NOTE | 2022-04-20 18:37 | PC.NURSE ---
SHift SUmmary: Uneventdul shift. Patient rested in bed throughout the day. Oxygen requirements have increased to 10Lpm.
[2022-04-20] MEDS: atorvastatin 40 mg Tablet 80 MG PO (20:36)
[2022-04-20] MEDS: insulin glargine 100 units/1 mL 20 UNIT SUBCUT (20:37)
[2022-04-20 21:04] LABS: Glucose Point of Care 139 mg/dL (70-110)
[2022-04-21] VITALS (69 sets, daily range): BP systolic 74–134; BP diastolic 42–81; PULSE 88–127; RESP 12–28; TEMP 36.4–37.1; O2SAT 88–100
[2022-04-21] MEDS: morphine IR 15 mg Tablet PO ×3 (01:25→20:49)
[2022-04-21] MEDS: meropenem 500 MG in sodium chloride 0.9% (plus) 50 ML 100 MG IV ×3 (01:26→17:37)
[2022-04-21 02:40] LABS: Basophils % 0.4 %; Eosinophils # 0.1 10^3/uL (0.0-0.8); Eosinophils % 1.3 %; Hematocrit 38.3 % (42.0-52.0); Hemoglobin 12.2 g/dL (11.7-16.6); Lymphocytes # 1.4 10^3/uL (0.8-4.8); Lymphocytes % 19.7 %; Mean Corpuscular HGB Conc 31.9 g/dL (30.0-36.0); Mean Corpuscular Hemoglobin 27.1 pg (28.0-34.0); Mean Corpuscular Volume 85.1 fl (80-94); Mean Platelet Volume 11.5 fL (7.4-10.4); Monocytes # 0.4 10^3/uL (0.2-0.9); Monocytes % 6.3 %; Neutrophils # 5.04 10^3/uL (1.8-7.7); Neutrophils % 71.7 %; Nucleated Red Blood Cells % 0 %; Platelet Count 197 10^3/cmm (130-400); Red Cell Distribution Width 14.8 % (12.1-15.1)
[2022-04-21 02:51] LABS: D Dimer 1.88 ug/mIFEU (0-0.59)
[2022-04-21 03:09] LABS: Blood Urea Nitrogen 16 mg/dL (6-20); Calcium 8.2 mg/dL (8.5-10.5); Carbon Dioxide 27 mmol/L (22-29); Chloride 96 mmol/L (98-107); Glomerular Filtration Rate 104.5 mL/min (90-130); Glucose 138 mg/dL (65-115); Osmolality Calculated 281 mOsm/kg (285-295); Sodium 134 mmol/L (136-145); Vancomycin Trough 9.7 ug/mL (10-15)
[2022-04-21 03:13] LABS: Anion Gap 14.7 (5-19); Potassium 3.7 mmol/L (3.5-5.1); Procalcitonin 0.13 ng/mL (0-0.5)
[2022-04-21] MEDS: vancomycin 1,250 MG/250 ML PIGGYBACK 250 MG IV (03:33)
[2022-04-21] MEDS: FUROsemide 10 mg/mL SDV 10mL 60 MG IVP (06:33)
[2022-04-21] MEDS: enoxaparin 40 mg/0.4 mL Syringe SUBCUT (06:33)
[2022-04-21 07:42] LABS: Glucose Point of Care 121 mg/dL (70-110)
--- NOTE | 2022-04-21 07:44 | PM.PN ---
Subjective Subjective: Patient continues to diurese well. No chest pain. Breathing has improved. Vitals/I&O/Wt Last Vital Signs Temp 98.5 F 04/21/22 06:30 Pulse 91 04/21/22 06:30 Resp 17 04/21/22 06:30 BP 100/67 04/21/22 06:30 Pulse Ox 92 04/21/22 06:30 O2 Del Method 04/21/22 01:30 O2 Flow Rate 10 04/21/22 01:30 04/20/22 04/21/22 04/21/22 22:59 06:59 14:59 Intake Total 400 / 800 500 / 1300 Output Total 1000 / 3475 650 / 4125 Balance -600 / -2675 -150 / -2825 Physical Exam Narrative: GENERAL: Patient is alert, awake and oriented x3. [] NECK: No jugular vein distension. [] HEENT: No cyanosis. No icterus. No pallor. [] HEART: Regular S1 and S2. LUNGS: Decreased breath sounds with mild crackles. CENTRAL NERVOUS SYSTEM: Grossly nonfocal. [] EXTREMITIES: Lower extremities with 1+ edema bilaterally. Pulses palpable in the lower extremities, both dorsalis pedis and posterior tibial. [] Data 04/21/22 01:42 04/21/22 01:42 Micro: Microbiology 04/19/22 10:31 MRSA Culture - Final Nose 04/19/22 05:35 Blood Culture - Preliminary Blood NEGATIVE TO DATE 04/19/22 05:30 Blood Culture - Preliminary Blood NEGATIVE TO DATE A&P Assessment and plan (1) Troponin level elevated: (2) CHF (congestive heart failure): Qualifiers: Heart failure type: systolic Heart failure chronicity: acute Qualified Code(s): I50.21 - Acute systolic (congestive) heart failure (3) Diabetes: (4) Diabetic peripheral neuropathy associated with type 2 diabetes mellitus: Plan Patient is diuresing well. Continue lasix and metolazone. Strict I&O's Once he is euvolemic, will obtain a Lexiscan to assess ischemia in LAD territory/viability. Based on that recommendations regarding revascularization of LAD will be made. Thank you for involving us with care of this patient. We will continue to follow. Please call with questions Attestations Medical Necessity Statement*: Care expected to cross 2 midnights. Coding Level of Care Code Acute Surface Room Shop Optician for [facility] Diagnoses Troponin level elevated R77.8 CHF (congestive heart failure) I50.21 Heart failure type: systolic Heart failure chronicity: acute Diabetes E11.9 Diabetic peripheral neuropathy associated with type 2 diabetes mellitus E11.42
[2022-04-21] MEDS: lisinopril 2.5 mg Tablet PO (08:10)
[2022-04-21] MEDS: ipratropium-albuterol 3 mL Neb INHALATION (08:10)
[2022-04-21] MEDS: metOLazone 5 MG Tablet PO (08:10)
[2022-04-21] MEDS: aspirin 81 mg EC Tablet PO (08:10)
[2022-04-21] MEDS: clopidogrel 75 mg Tablet PO (08:10)
[2022-04-21 11:45] LABS: Glucose Point of Care 138 mg/dL (70-110)
--- NOTE | 2022-04-21 13:57 | PM.PN ---
Subjective Subjective: Patient was seen and examined this morning, shortness of breath is improved, lower extremity swelling has resolved, coughing has improved, slightly hypotensive today.Has been afebrile. Good urine output so far. Approximately 7 Ls negative. Medications: Medication Review Details: Generic Name Dose Route Start Last Admin Trade Name Freq PRN Reason Stop Dose Admin Albuterol/Ipratrop ium 3 ml 04/19/22 07:22 04/21/22 08:10 Ipratropium-Albu terol 3 Ml Neb INHALATION 3 ml Q6H PRN Administration SHORTNESS OF ISABEL TH Alprazolam 0.25 mg 04/19/22 18:22 04/20/22 21:37 Alprazolam 0.5 M g Tablet PO 0.25 mg TID PRN Administration ANXIETY Aspirin 81 mg 04/19/22 09:00 04/21/22 08:10 Aspirin 81 Mg Ec Tablet PO 81 mg DAILY BARBI Administration Atorvastatin Calci um 80 mg 04/19/22 21:00 04/20/22 20:36 Atorvastatin 40 Mg Tablet PO 80 mg BEDTIME BARBI Administration Benzonatate 200 mg 04/19/22 17:13 04/20/22 21:37 Benzonatate 100 Mg Capsule PO 200 mg TID PRN Administration COUGH Clopidogrel Bisulf ate 75 mg 04/19/22 09:00 04/21/22 08:10 Clopidogrel 75 M g Tablet PO 75 mg DAILY BARBI Administration Enoxaparin Sodium 40 mg 04/21/22 07:30 04/21/22 06:33 Enoxaparin 40 Mg /0.4 Ml Syringe SUBCUT 40 mg Q24H BARBI Administration Meropenem 500 mg/ Sodium 50 mls @ 100 mls/ hr 04/19/22 10:00 04/21/22 10:59 Chloride IV Infused Q8H BARBI Infusion Norepinephrine Bit artrate 4 mg 254 mls @ 0 mls/h r 04/21/22 13:45 04/21/22 13:53 / Dextrose IV 2 mcg/min .Q0M BARBI 7.62 mls/hr Administration Protocol Per Protocol Insulin Glargine 20 unit 04/19/22 21:00 04/20/22 20:37 Insulin Glargine 100 Units/1 Ml SUBCUT 20 unit BEDTIME BARBI Administration Insulin Human Lisp ro 0 unit 04/19/22 08:00 04/21/22 11:42 Insulin Lispro 1 00 Unit/1 Ml SUBCUT Not Given TIDWM [facility] Protocol Lisinopril 2.5 mg 04/19/22 09:00 04/21/22 08:10 Lisinopril 2.5 M g Tablet PO 2.5 mg DAILY BARBI Administration Metolazone 5 mg 04/20/22 10:00 04/21/22 08:10 Metolazone 5 Mg Tablet PO 5 mg DAILY BARBI Administration Morphine Sulfate 15 mg 04/19/22 07:22 04/21/22 08:09 Morphine Ir 15 M g Tablet PO 15 mg Q6H PRN Administration MODERATE PAIN Promethazine HCl/D extromethorphan 5 ml 04/20/22 12:00 04/21/22 12:06 Promethazine-Dm 6.25-15 Mg/5 Ml Sy rup PO 5 ml Q4H BARBI Administration Vitals/I&O/Wt Last Vital Signs Temp 98.8 F 04/21/22 13:00 Pulse 98 04/21/22 13:00 Resp 19 H 04/21/22 13:00 BP 93/60 04/21/22 13:00 Pulse Ox 91 04/21/22 13:00 O2 Del Method 04/21/22 13:00 O2 Flow Rate 5 04/21/22 13:00 04/20/22 04/21/22 04/21/22 22:59 06:59 14:59 Intake Total 400 / 800 500 / 1300 290 / 290 Output Total 1000 / 3475 650 / 4125 1850 / 1850 Balance -600 / -2675 -150 / -2825 -1560 / -1560 Physical Exam Const: COMMON NORMALS: patient oriented x3 Resp: OTHER: Diminished air entry bilaterally, with bilateral basal crackles Cardio: COMMON NORMALS: regular rate, regular rhythm, S1 normal heart sound present, S2 normal heart sound present, No gallops present (Cardio), No murmurs present (Cardio), No rub (Cardio) and Peripheral pulses 2+ throughout RATE: regular rate RHYTHM: regular rhythm HEART SOUNDS: S1 normal heart sound present and S2 normal heart sound present PERIPHERAL PULSES: Peripheral pulses 2+ throughout GI: COMMON NORMALS: Normal to inspection, nondistended, normoactive bowel sounds present, Soft to palpation, non-tender, No hepatosplenomegaly present and no masses AUSCULTATION: Yes normoactive bowel sounds PALPATION: Yes Soft to palpation and Yes No hepatosplenomegaly present RECTAL EXAM: Yes deferred Extremity: NARRATIVE EXTREMITY EXAM: 1+ bilateral lower extremity pitting edema Neuro: COMMON NORMALS: patient oriented x3 Data 04/21/22 01:42 04/21/22 01:42 Micro: Microbiology 04/20/22 17:23 Gram Stain - Final Sputum - Expectorated Sputum 04/21/22 07:40 Legionella Urinary Antigen - Final Urine,Voided Bacterial Antigens - Final 04/19/22 10:31 MRSA Culture - Final Nose A&P Assessment and plan (1) Community acquired pneumonia: (2) Non-ST elevation [place] (NSTEMI): (3) CHF (congestive heart failure): Qualifiers: Heart failure type: systolic Heart failure chronicity: acute Qualified Code(s): I50.21 - Acute systolic (congestive) heart failure (4) Diabetes: Plan 46-year-old male with past medical history of DM,coronary artery disease status post PTCA of RCA, with existing significant mid LAD lesion, not intervene at that time because of hypotension and CHF exacerbation, and was due for the staged procedure, discharged on LifeVest was admitted with chief complaint of worsening shortness of breath with minimal exertion , PND , orthopnea ,worsening bilateral lower extremity swelling, worsening cough. Currently being managed for. Assessment: Decompensated heart failure with reduced ejection fraction NSTEMI Pneumonia History of coronary artery disease s/p recent PTCA to RCA Diabetes Plan: Blood culture:NTD MRSA PCR negative Follow sputum gram stain and culture: Few gram-positive rods Urine Legionella antigen: Negative Bacterial antigen panel: Negative D-dimer:1.88 Monitor x-ray chest Currently on Lasix 40 twice daily as well as metolazone On lisinopril, aspirin statin Plavix Continue Lantus sliding scale insulin, monitor fingerstick glucose Monitor intake output charting Daily weight Monitor electrolytes Currently on broad-spectrum antibiotics vancomycin and meropenem Continue telemetry monitoring Cardiology on board Plan for today: Given the fact that the patient is having soft blood pressure, will hold lisinopril, cut back on Lasix to 40 twice daily, start him on Levophed. CODE STATUS: Full code DVT prophylaxis: On Lovenox Attestations Medical Necessity Statement*: Patient is in hospital for management of decompensated heart failure Time Spent in Patient Care: Greater than 35 minutes (>than 50% of time spent in counselling and/or direct pt care on unit). Critical Care Time: The high probability of a clinically significant, sudden or life threatening deterioration of the patient's [] system(s) required my full and direct attention, intervention and personal management. The critical care time is as shown. This time is in addition to time spent performing any reported procedures but includes the following: [x] Data and vital sign review and interpretation [x] Patient assessment, examination and intervention [x] Documentation [x] Medication orders and management Critical Care Time (min): 30 Coding Level of Care Code Acute Lockstitch Lining Maker for g Fwd Diagnoses Community acquired pneumonia J18.9 Non-ST elevation [place] (NSTEMI) I21.4 CHF (congestive heart failure) I50.21 Heart failure type: systolic Heart failure chronicity: acute Diabetes E11.9
[2022-04-21] MEDS: FUROsemide 10 mg/mL SDV 4mL 40 MG IVP (16:14)
[2022-04-21] MEDS: vancomycin 1,500 MG/300 ML PIGGYBACK 200 MG IV (16:14)
[2022-04-21] MEDS: insulin lispro 100 unit/1 mL SUBCUT (17:37)
[2022-04-21 17:41] LABS: Glucose Point of Care 403 mg/dL (70-110)
[2022-04-21] MEDS: atorvastatin 40 mg Tablet 80 MG PO (20:48)
[2022-04-21] MEDS: benzonatate 100 mg Capsule 200 MG PO (20:48)
[2022-04-21] MEDS: ALPRAZolam 0.5 mg Tablet 0.25 MG PO (20:49)
[2022-04-21] MEDS: insulin glargine 100 units/1 mL 20 UNIT SUBCUT (20:53)
[2022-04-21 21:41] LABS: Glucose Point of Care 135 mg/dL (70-110)
[2022-04-22] VITALS (62 sets, daily range): BP systolic 83–111; BP diastolic 52–82; PULSE 78–115; RESP 10–24; TEMP 36.7–36.8; O2SAT 75–100
[2022-04-22] MEDS: meropenem 500 MG in sodium chloride 0.9% (plus) 50 ML 100 MG IV ×3 (01:40→17:28)
[2022-04-22] MEDS: ALPRAZolam 0.5 mg Tablet 0.25 MG PO ×2 (02:38→20:40)
[2022-04-22] MEDS: vancomycin 1,500 MG/300 ML PIGGYBACK 200 MG IV (04:43)
[2022-04-22 04:51] LABS: Basophils % 0.5 %; Eosinophils # 0.1 10^3/uL (0.0-0.8); Eosinophils % 1.9 %; Hematocrit 38.4 % (42.0-52.0); Hemoglobin 12.1 g/dL (11.7-16.6); Lymphocytes # 1.8 10^3/uL (0.8-4.8); Lymphocytes % 29.2 %; Mean Corpuscular HGB Conc 31.5 g/dL (30.0-36.0); Mean Corpuscular Hemoglobin 26.7 pg (28.0-34.0); Mean Corpuscular Volume 84.6 fl (80-94); Mean Platelet Volume 11.4 fL (7.4-10.4); Monocytes # 0.6 10^3/uL (0.2-0.9); Monocytes % 9.8 %; Neutrophils % 58.1 %; Nucleated Red Blood Cells % 0 %; Platelet Count 249 10^3/cmm (130-400); Red Blood Count 4.54 10^6/uL (4.1-5.3); Red Cell Distribution Width 14.9 % (12.1-15.1); White Blood Count 6.2 10^3/uL (4.0-10.0)
--- NOTE | 2022-04-22 05:00 | XRR_ITS ---
PROCEDURE INFORMATION: Exam: XR Chest Exam date and time: 04/22/2022 5:23 AM Age: 46 years old Clinical indication: Other: Pneumonia; Additional info: Pna TECHNIQUE: Imaging protocol: Radiologic exam of the chest. Views: 1 view. COMPARISON: CR XR chest 1V portable [id number] 04/20/2022 8:55 AM FINDINGS: Lungs: Similar bibasilar airspace opacities. Pleural spaces: Similar small bilateral pleural effusions. No pneumothorax. Heart/Mediastinum: Unremarkable. No cardiomegaly. Bones/joints: Unremarkable. XR/XR chest 1V portable [id number] IMPRESSION: Similar small bilateral pleural effusions with bibasilar airspace opacities.
[2022-04-22 05:12] LABS: Anion Gap 13.3 (5-19); Blood Urea Nitrogen 15 mg/dL (6-20); Calcium 8.4 mg/dL (8.5-10.5); Carbon Dioxide 31 mmol/L (22-29); Chloride 95 mmol/L (98-107); Glucose 99 mg/dL (65-115); Osmolality Calculated 283 mOsm/kg (285-295); Potassium 3.3 mmol/L (3.5-5.1); Sodium 136 mmol/L (136-145)
[2022-04-22] MEDS: enoxaparin 40 mg/0.4 mL Syringe SUBCUT (06:45)
--- NOTE | 2022-04-22 07:29 | PM.PN ---
Subjective Subjective: Patient is feeling better. Continues to diurese well. Vitals/I&O/Wt Last Vital Signs Temp 98.2 F 04/22/22 05:30 Pulse 85 04/22/22 06:00 Resp 16 04/22/22 06:00 BP 97/66 04/22/22 06:00 Pulse Ox 100 04/22/22 06:00 O2 Del Method 04/21/22 20:45 O2 Flow Rate 3 04/21/22 20:45 04/21/22 04/22/22 04/22/22 22:59 06:59 14:59 Intake Total 778.392 / 1070.297 512.294 / 1582.591 Output Total 1000 / 2850 Balance -221.608 / -1779.703 512.294 / -1267.409 Physical Exam Narrative: GENERAL: Patient is alert, awake and oriented x3. [] NECK: No jugular vein distension. [] HEENT: No cyanosis. No icterus. No pallor. [] HEART: Regular S1 and S2. LUNGS: Decreased breath sounds with mild crackles. CENTRAL NERVOUS SYSTEM: Grossly nonfocal. [] EXTREMITIES: Lower extremities with 1+ edema bilaterally. Pulses palpable in the lower extremities, both dorsalis pedis and posterior tibial. [] Data 04/22/22 04:07 04/22/22 04:07 Micro: Microbiology 04/20/22 17:23 Gram Stain - Final Sputum - Expectorated Sputum Sputum Culture - Preliminary Yeast 04/21/22 07:40 Legionella Urinary Antigen - Final Urine,Voided Bacterial Antigens - Final A&P Assessment and plan (1) Troponin level elevated: (2) CHF (congestive heart failure): Qualifiers: Heart failure type: systolic Heart failure chronicity: acute Qualified Code(s): I50.21 - Acute systolic (congestive) heart failure (3) Diabetes: (4) Diabetic peripheral neuropathy associated with type 2 diabetes mellitus: Plan Patient is diuresing well. O2 requirement decreasing. Will recommend continuing diuresing with lasix and metolazone Strict I&O's Once he is euvolemic, will obtain a Lexiscan to assess ischemia in LAD territory/viability. Based on that recommendations regarding revascularization of LAD will be made. Thank you for involving us with care of this patient. We will continue to follow. Please call with questions Attestations Medical Necessity Statement*: Care expected to cross 2 midnights. Coding Level of Care Code Acute Parimutuel Clerk for Chg Fwd Diagnoses Troponin level elevated R77.8 CHF (congestive heart failure) I50.21 Heart failure type: systolic Heart failure chronicity: acute Diabetes E11.9 Diabetic peripheral neuropathy associated with type 2 diabetes mellitus E11.42
[2022-04-22 08:09] LABS: Glucose Point of Care 122 mg/dL (70-110)
[2022-04-22] MEDS: clopidogrel 75 mg Tablet PO (08:40)
[2022-04-22] MEDS: aspirin 81 mg EC Tablet PO (08:40)
[2022-04-22] MEDS: FUROsemide 10 mg/mL SDV 4mL 40 MG IVP ×2 (08:40→17:29)
[2022-04-22] MEDS: metOLazone 5 MG Tablet PO (08:40)
[2022-04-22] MEDS: potassium chloride ER 20 mEq Tablet 40 MEQ PO (09:28)
[2022-04-22] MEDS: lidocaine 1% 5 ML in potassium chloride premix 100 ML 25 ML IV (09:28)
[2022-04-22] MEDS: morphine IR 15 mg Tablet PO ×2 (09:33→20:46)
[2022-04-22 12:06] LABS: Glucose Point of Care 111 mg/dL (70-110)
--- NOTE | 2022-04-22 14:48 | PM.PN ---
Subjective Subjective: Patient was seen and examined this morning shortness of breath is improved continue to have good urine output, blood pressure is slightly soft, but given his EF he is maintaining a decent MAP, continue to require 2 L oxygen, chest x-ray has shown: Persistent small bilateral pleural effusion, with bibasilar airspace opacity. Medications: Medication Review Details: Generic Name Dose Route Start Last Admin Trade Name Freq PRN Reason Stop Dose Admin Albuterol/Ipratrop ium 3 ml 04/19/22 07:22 04/21/22 08:10 Ipratropium-Albu terol 3 Ml Neb INHALATION 3 ml Q6H PRN Administration SHORTNESS OF ISABEL TH Alprazolam 0.25 mg 04/19/22 18:22 04/22/22 02:38 Alprazolam 0.5 M g Tablet PO 0.25 mg TID PRN Administration ANXIETY Aspirin 81 mg 04/19/22 09:00 04/22/22 08:40 Aspirin 81 Mg Ec Tablet PO 81 mg DAILY BARBI Administration Atorvastatin Calci um 80 mg 04/19/22 21:00 04/21/22 20:48 Atorvastatin 40 Mg Tablet PO 80 mg BEDTIME BARBI Administration Benzonatate 200 mg 04/19/22 17:13 04/21/22 20:48 Benzonatate 100 Mg Capsule PO 200 mg TID PRN Administration COUGH Clopidogrel Bisulf ate 75 mg 04/19/22 09:00 04/22/22 08:40 Clopidogrel 75 M g Tablet PO 75 mg DAILY BARBI Administration Enoxaparin Sodium 40 mg 04/21/22 07:30 04/22/22 06:45 Enoxaparin 40 Mg /0.4 Ml Syringe SUBCUT 40 mg Q24H BARBI Administration Furosemide 40 mg 04/21/22 17:00 04/22/22 08:40 Furosemide 10 Mg /Ml Sdv 4ml IVP 40 mg BID BARBI Administration Meropenem 500 mg/ Sodium 50 mls @ 100 mls/ hr 04/19/22 10:00 04/22/22 10:32 Chloride IV Infused Q8H BARBI Infusion Vancomycin/PEG/NAD A/Lysine/Water 1,500 mg in 300 m ls @ 200 mls/hr 04/21/22 17:00 04/22/22 06:41 Vancocin IV Infused Q12H BARBI Infusion Norepinephrine Bit artrate 4 mg 254 mls @ 0 mls/h r 12/23/22 13:45 04/22/22 05:30 / Dextrose IV 0 mcg/min .Q0M BARBI 0 mls/hr Titration Protocol Per Protocol Insulin Glargine 20 unit 04/19/22 21:00 04/21/22 20:53 Insulin Glargine 100 Units/1 Ml SUBCUT 20 unit BEDTIME BARBI Administration Insulin Human Lisp ro 0 unit 04/19/22 08:00 04/22/22 12:19 Insulin Lispro 1 00 Unit/1 Ml SUBCUT Not Given TIDWM BARBI Protocol Lisinopril 2.5 mg 04/19/22 09:00 04/21/22 08:10 Lisinopril 2.5 M g Tablet PO 2.5 mg DAILY BARBI Administration Metolazone 5 mg 04/20/22 10:00 04/22/22 08:40 Metolazone 5 Mg Tablet PO 5 mg DAILY BARBI Administration Morphine Sulfate 15 mg 04/19/22 07:22 04/22/22 09:33 Morphine Ir 15 M g Tablet PO 15 mg Q6H PRN Administration MODERATE PAIN Potassium Chloride 40 meq 04/22/22 09:15 04/22/22 09:28 Potassium Chlori de Er 20 Meq Table t PO 40 meq DAILY BARBI Administration Promethazine HCl/D extromethorphan 5 ml 04/20/22 12:00 04/22/22 12:21 Promethazine-Dm 6.25-15 Mg/5 Ml Sy rup PO 5 ml Q4H BARBI Administration Vitals/I&O/Wt Last Vital Signs Temp 98.2 F 04/22/22 05:30 Pulse 103 H 04/22/22 13:30 Resp 19 H 04/22/22 13:30 BP 92/57 04/22/22 13:30 Pulse Ox 86 L 04/22/22 13:30 O2 Del Method 04/22/22 08:00 O2 Flow Rate 2 04/22/22 08:00 04/21/22 04/22/22 04/22/22 22:59 06:59 14:59 Intake Total 778.392 / 1070.297 512.294 / 1582.591 355 / 355 Output Total 1000 / 2850 800 / 800 Balance -221.608 / -1779.703 512.294 / -1267.409 -445 / -445 Physical Exam Const: COMMON NORMALS: patient oriented x3 Resp: OTHER: Diminished air entry bilaterally, with bilateral basal crackles Cardio: COMMON NORMALS: regular rate, regular rhythm, S1 normal heart sound present, S2 normal heart sound present, No gallops present (Cardio), No murmurs present (Cardio), No rub (Cardio) and Peripheral pulses 2+ throughout RATE: regular rate RHYTHM: regular rhythm HEART SOUNDS: S1 normal heart sound present and S2 normal heart sound present PERIPHERAL PULSES: Peripheral pulses 2+ throughout GI: COMMON NORMALS: Normal to inspection, nondistended, normoactive bowel sounds present, Soft to palpation, non-tender, No hepatosplenomegaly present and no masses AUSCULTATION: Yes normoactive bowel sounds PALPATION: Yes Soft to palpation and Yes No hepatosplenomegaly present RECTAL EXAM: Yes deferred Extremity: NARRATIVE EXTREMITY EXAM: 1+ bilateral lower extremity pitting edema Neuro: COMMON NORMALS: patient oriented x3 Data 04/22/22 04:07 04/22/22 04:07 Micro: Microbiology 04/20/22 17:23 Gram Stain - Final Sputum - Expectorated Sputum Sputum Culture - Preliminary Yeast 04/21/22 07:40 Legionella Urinary Antigen - Final Urine,Voided Bacterial Antigens - Final A&P Assessment and plan (1) Community acquired pneumonia: (2) Non-ST elevation [place] (NSTEMI): (3) CHF (congestive heart failure): Qualifiers: Heart failure chronicity: acute Heart failure type: systolic Qualified Code(s): I50.21 - Acute systolic (congestive) heart failure (4) Diabetes: (5) Hypokalemia: Plan 46-year-old male with past medical history of DM,coronary artery disease status post PTCA of RCA, with existing significant mid LAD lesion, not intervene at that time because of hypotension and CHF exacerbation, and was due for the staged procedure, discharged on LifeVest was admitted with chief complaint of worsening shortness of breath with minimal exertion , PND , orthopnea ,worsening bilateral lower extremity swelling, worsening cough. Currently being managed for. Assessment: Decompensated heart failure with reduced ejection fraction NSTEMI Pneumonia History of coronary artery disease s/p recent PTCA to RCA Diabetes Plan: Blood culture:NTD MRSA PCR negative sputum gram stain and culture: Yeast: Urine Legionella antigen: Negative Bacterial antigen panel: Negative D-dimer:1.88 Monitor x-ray chest Currently on Lasix 40 twice daily as well as metolazone On lisinopril, aspirin statin Plavix Continue Lantus sliding scale insulin, monitor fingerstick glucose Monitor intake output charting Daily weight Monitor electrolytes Currently on broad-spectrum antibiotics vancomycin and meropenem. Sputum culture is growing yeast pending identification: Less likely a true infection:Will empirically treat with fluconazole for 5 days Continue telemetry monitoring Cardiology on board Plan for today: Levophed has been weaned off, continue with IV diuresis, will discontinue vancomycin today. CODE STATUS: Full code DVT prophylaxis: On Lovenox Attestations Medical Necessity Statement*: Patient is to be in hospital for management of decompensated heart failure. Time Spent in Patient Care: Greater than 35 minutes (>than 50% of time spent in counselling and/or direct pt care on unit). Coding Level of Care Code Acute Eyeglass Lens Generator for Willag Fwd Exam Expanded Problem Focused Diagnoses Community acquired pneumonia J18.9 Non-ST elevation [place] (NSTEMI) I21.4 CHF (congestive heart failure) I50.21 Heart failure chronicity: acute Heart failure type: systolic Diabetes E11.9 Hypokalemia E87.6
[2022-04-22] MEDS: fluconazole premix 100 MG/50 ML PREMIX IV (15:43)
[2022-04-22 17:27] LABS: Glucose Point of Care 203 mg/dL (70-110)
[2022-04-22] MEDS: insulin lispro 100 unit/1 mL SUBCUT (17:29)
[2022-04-22] MEDS: atorvastatin 40 mg Tablet 80 MG PO (20:34)
[2022-04-22] MEDS: benzonatate 100 mg Capsule 200 MG PO (20:39)
[2022-04-22] MEDS: insulin glargine 100 units/1 mL 20 UNIT SUBCUT (20:50)
[2022-04-22 20:59] LABS: Glucose Point of Care 147 mg/dL (70-110)
[2022-04-23] VITALS (38 sets, daily range): BP systolic 74–106; BP diastolic 45–74; PULSE 88–113; RESP 11–26; TEMP 36.1–36.7; O2SAT 79–97
[2022-04-23] MEDS: meropenem 500 MG in sodium chloride 0.9% (plus) 50 ML 100 MG IV ×3 (01:09→17:32)
[2022-04-23 05:08] LABS: Basophils % 0.4 %; Eosinophils # 0.2 10^3/uL (0.0-0.8); Eosinophils % 2.1 %; Hematocrit 38.6 % (42.0-52.0); Hemoglobin 12.3 g/dL (11.7-16.6); Lymphocytes # 2.1 10^3/uL (0.8-4.8); Lymphocytes % 29.4 %; Mean Corpuscular HGB Conc 31.9 g/dL (30.0-36.0); Mean Corpuscular Hemoglobin 26.9 pg (28.0-34.0); Mean Corpuscular Volume 84.5 fl (80-94); Monocytes # 0.6 10^3/uL (0.2-0.9); Monocytes % 8.4 %; Neutrophils # 4.21 10^3/uL (1.8-7.7); Neutrophils % 59.3 %; Nucleated Red Blood Cells % 0 %; Platelet Count 267 10^3/cmm (130-400); Red Blood Count 4.57 10^6/uL (4.1-5.3); Red Cell Distribution Width 14.8 % (12.1-15.1); White Blood Count 7.1 10^3/uL (4.0-10.0)
[2022-04-23 05:32] LABS: Anion Gap 12.6 (5-19); Blood Urea Nitrogen 15 mg/dL (6-20); Calcium 8.5 mg/dL (8.5-10.5); Carbon Dioxide 31 mmol/L (22-29); Chloride 97 mmol/L (98-107); Glucose 98 mg/dL (65-115); Osmolality Calculated 285 mOsm/kg (285-295); Potassium 3.6 mmol/L (3.5-5.1); Sodium 137 mmol/L (136-145)
[2022-04-23] MEDS: enoxaparin 40 mg/0.4 mL Syringe SUBCUT (07:00)
[2022-04-23 08:08] LABS: Glucose Point of Care 102 mg/dL (70-110)
[2022-04-23] MEDS: metOLazone 5 MG Tablet PO (08:17)
[2022-04-23] MEDS: potassium chloride ER 20 mEq Tablet 40 MEQ PO (08:17)
[2022-04-23] MEDS: FUROsemide 10 mg/mL SDV 4mL 40 MG IVP (08:17)
[2022-04-23] MEDS: aspirin 81 mg EC Tablet PO (08:17)
[2022-04-23] MEDS: clopidogrel 75 mg Tablet PO (08:18)
--- NOTE | 2022-04-23 09:20 | PM.PN ---
Subjective Subjective: Patient is doing well. breathing is improving. Vitals/I&O/Wt Last Vital Signs Temp 98.0 F 04/22/22 21:00 Pulse 98 04/23/22 09:10 Resp 17 04/23/22 09:10 BP 105/68 04/23/22 08:56 Pulse Ox 92 04/23/22 09:10 O2 Del Method 04/23/22 09:10 O2 Flow Rate 2 04/23/22 09:10 04/22/22 04/23/22 04/23/22 22:59 06:59 14:59 Intake Total 400 / 755 150 / 905 300 / 300 Output Total 1200 / 2000 Balance -800 / -1245 150 / -1095 300 / 300 Physical Exam Narrative: GENERAL: Patient is alert, awake and oriented x3. [] NECK: No jugular vein distension. [] HEENT: No cyanosis. No icterus. No pallor. [] HEART: Regular S1 and S2. LUNGS: Decreased breath sounds with mild crackles. CENTRAL NERVOUS SYSTEM: Grossly nonfocal. [] EXTREMITIES: Lower extremities with 1+ edema bilaterally. Pulses palpable in the lower extremities, both dorsalis pedis and posterior tibial. [] Data 04/23/22 04:24 04/23/22 04:24 A&P Assessment and plan (1) Troponin level elevated: (2) CHF (congestive heart failure): Qualifiers: Heart failure type: systolic Heart failure chronicity: acute Qualified Code(s): I50.21 - Acute systolic (congestive) heart failure (3) Diabetes: (4) Diabetic peripheral neuropathy associated with type 2 diabetes mellitus: Plan We will continue with current diuretics. Monitor labs. Strict I&O's Lexiscan on Sunday to assess ischemia/scarring of LAD territory. Based on that recommendations regarding revascularization of LAD will be made Thank you for involving us with care of this patient. We will continue to follow. Please call with questions Attestations Medical Necessity Statement*: Care expected to cross 2 midnights. Coding Level of Care Code Acute Tool Grinding Technician for Koko Dias Diagnoses Troponin level elevated R77.8 CHF (congestive heart failure) I50.21 Heart failure type: systolic Heart failure chronicity: acute Diabetes E11.9 Diabetic peripheral neuropathy associated with type 2 diabetes mellitus E11.42
[2022-04-23 11:31] LABS: Glucose Point of Care 194 mg/dL (70-110)
[2022-04-23] MEDS: insulin lispro 100 unit/1 mL SUBCUT (12:20)
--- NOTE | 2022-04-23 14:41 | P.PN_ITS ---
Subjective Subjective: Patient was seen and examined this morning shortness of breath is improved coughing has improved, able to lie flat. Length of stay is 4 L negative. Blood pressure is slightly soft. Medications: Medication Review Details: Generic Name Dose Route Start Last Admin Trade Name Freq PRN Reason Stop Dose Admin Albuterol/Ipratrop ium 3 ml 04/19/22 07:22 04/21/22 08:10 Ipratropium-Albu terol 3 Ml Neb INHALATION 3 ml Q6H PRN Administration SHORTNESS OF ISABEL TH Alprazolam 0.25 mg 04/19/22 18:22 04/22/22 20:40 Alprazolam 0.5 M g Tablet PO 0.25 mg TID PRN Administration ANXIETY Aspirin 81 mg 04/19/22 09:00 04/23/22 08:17 Aspirin 81 Mg Ec Tablet PO 81 mg DAILY BARBI Administration Atorvastatin Calci um 80 mg 04/19/22 21:00 04/22/22 20:34 Atorvastatin 40 Mg Tablet PO 80 mg BEDTIME BARBI Administration Benzonatate 200 mg 04/19/22 17:13 04/22/22 20:39 Benzonatate 100 Mg Capsule PO 200 mg TID PRN Administration COUGH Clopidogrel Bisulf ate 75 mg 04/19/22 09:00 04/23/22 08:18 Clopidogrel 75 M g Tablet PO 75 mg DAILY BARBI Administration Enoxaparin Sodium 40 mg 04/21/22 07:30 04/23/22 07:00 Enoxaparin 40 Mg /0.4 Ml Syringe SUBCUT 40 mg Q24H BARBI Administration Furosemide 40 mg 04/23/22 09:00 04/23/22 08:17 Furosemide 10 Mg /Ml Sdv 4ml IVP 40 mg DAILY BARBI Administration Meropenem 500 mg/ Sodium 50 mls @ 100 mls/ hr 04/19/22 10:00 04/23/22 10:50 Chloride IV Infused Q8H BARBI Infusion Norepinephrine Bit artrate 4 mg 254 mls @ 0 mls/h r 04/21/22 13:45 04/22/22 05:30 / Dextrose IV 0 mcg/min .Q0M BARBI 0 mls/hr Titration Protocol Per Protocol Fluconazole 100 mg in 50 mls @ 100 mls/hr 04/22/22 15:00 04/22/22 16:35 Diflucan Premix IV Infused Q24H BARBI Infusion Insulin Glargine 20 unit 04/19/22 21:00 04/22/22 20:50 Insulin Glargine 100 Units/1 Ml SUBCUT 20 unit BEDTIME BARBI Administration Insulin Human Lisp ro 0 unit 04/19/22 08:00 04/23/22 12:20 Insulin Lispro 1 00 Unit/1 Ml SUBCUT 6 unit TIDWM BARBI Administration Protocol Lisinopril 2.5 mg 04/19/22 09:00 04/21/22 08:10 Lisinopril 2.5 M g Tablet PO 2.5 mg DAILY BARBI Administration Metolazone 5 mg 04/20/22 10:00 04/23/22 08:17 Metolazone 5 Mg Tablet PO 5 mg DAILY BARBI Administration Morphine Sulfate 15 mg 04/19/22 07:22 04/22/22 20:46 Morphine Ir 15 M g Tablet PO 15 mg Q6H PRN Administration MODERATE PAIN Potassium Chloride 40 meq 04/22/22 09:15 04/23/22 08:17 Potassium Chlori de Er 20 Meq Table t PO 40 meq DAILY BARBI Administration Promethazine HCl/D extromethorphan 5 ml 04/20/22 12:00 04/23/22 12:20 Promethazine-Dm 6.25-15 Mg/5 Ml Sy rup PO 5 ml Q4H BARBI Administration Vitals/I&O/Wt Last Vital Signs Temp 98.0 F 04/22/22 21:00 Pulse 103 H 04/23/22 14:00 Resp 17 04/23/22 14:00 BP 94/72 04/23/22 14:00 Pulse Ox 93 04/23/22 14:00 O2 Del Method 04/23/22 09:10 O2 Flow Rate 2 04/23/22 09:10 04/22/22 04/23/22 04/23/22 22:59 06:59 14:59 Intake Total 400 / 755 150 / 905 700 / 700 Output Total 1200 / 2000 Balance -800 / -1245 150 / -1095 700 / 700 Physical Exam Const: COMMON NORMALS: patient oriented x3 Resp: OTHER: Diminished air entry bilaterally, with bilateral basal crackles Cardio: COMMON NORMALS: regular rate, regular rhythm, S1 normal heart sound present, S2 normal heart sound present, No gallops present (Cardio), No murmurs present (Cardio), No rub (Cardio) and Peripheral pulses 2+ throughout RATE: regular rate RHYTHM: regular rhythm HEART SOUNDS: S1 normal heart sound present and S2 normal heart sound present PERIPHERAL PULSES: Peripheral pulses 2+ throughout GI: COMMON NORMALS: Normal to inspection, nondistended, normoactive bowel sounds present, Soft to palpation, non-tender, No hepatosplenomegaly present and no masses AUSCULTATION: Yes normoactive bowel sounds PALPATION: Yes Soft to palpation and Yes No hepatosplenomegaly present RECTAL EXAM: Yes deferred Extremity: NARRATIVE EXTREMITY EXAM: 1+ bilateral lower extremity pitting edema Neuro: COMMON NORMALS: patient oriented x3 Data 04/23/22 04:24 04/23/22 04:24 Micro: Microbiology 04/20/22 17:23 Gram Stain - Final Sputum - Expectorated Sputum Sputum Culture - Final Zara albicans A&P Assessment and plan (1) Community acquired pneumonia: (2) Non-ST elevation [place] (NSTEMI): (3) CHF (congestive heart failure): Qualifiers: Heart failure type: systolic Heart failure chronicity: acute Qualified Code(s): I50.21 - Acute systolic (congestive) heart failure (4) Diabetes: (5) Hypokalemia: Plan 46-year-old male with past medical history of DM,coronary artery disease status post PTCA of RCA, with existing significant mid LAD lesion, not intervene at that time because of hypotension and CHF exacerbation, and was due for the staged procedure, discharged on LifeVest was admitted with chief complaint of worsening shortness of breath with minimal exertion , PND , orthopnea ,worsening bilateral lower extremity swelling, worsening cough. Currently being managed for. Assessment: Decompensated heart failure with reduced ejection fraction NSTEMI Pneumonia History of coronary artery disease s/p recent PTCA to RCA Diabetes Plan: Blood culture:NTD MRSA PCR negative sputum gram stain and culture: Zara albicans. Urine Legionella antigen: Negative Bacterial antigen panel: Negative D-dimer:1.88 Monitor x-ray chest Currently on Lasix 40 twice daily as well as metolazone On lisinopril, aspirin statin Plavix Continue Lantus sliding scale insulin, monitor fingerstick glucose Monitor intake output charting Daily weight Monitor electrolytes Currently on broad-spectrum antibiotics vancomycin and meropenem. Sputum culture is growing Zara albicans: Less likely a true infection:Will empirically treat with fluconazole for 5 days. Continue telemetry monitoring Cardiology on board: Plans to do Lexiscan Plan for today:Continue with IV diuresis. CODE STATUS: Full code DVT prophylaxis: On Lovenox Attestations Medical Necessity Statement*: Patient is to be in hospital for IV diuresis, NSTEMI decompensated heart. 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
[2022-04-23] MEDS: fluconazole premix 100 MG/50 ML PREMIX IV (15:26)
[2022-04-23 17:24] LABS: Glucose Point of Care 112 mg/dL (70-110)
--- NOTE | 2022-04-23 18:17 | PC.NURSE ---
up ambulating in room to bathroom ad jose . replaces o2 when back ,related feel better this afternoon
[2022-04-23 19:57] LABS: Glucose Point of Care 282 mg/dL (70-110)
[2022-04-23] MEDS: morphine IR 15 mg Tablet PO (20:03)
[2022-04-23] MEDS: atorvastatin 40 mg Tablet 80 MG PO (20:04)
[2022-04-23] MEDS: insulin glargine 100 units/1 mL 20 UNIT SUBCUT (20:07)
[2022-04-23] MEDS: benzonatate 100 mg Capsule 200 MG PO (23:20)
[2022-04-23] MEDS: ALPRAZolam 0.5 mg Tablet 0.25 MG PO (23:20)
[2022-04-24] VITALS (19 sets, daily range): BP systolic 86–104; BP diastolic 54–80; PULSE 65–105; RESP 9–25; TEMP 36.8–37.3; O2SAT 86–95
[2022-04-24] MEDS: acetaminophen 325 mg Tablet 650 MG PO (00:05)
[2022-04-24] MEDS: meropenem 500 MG in sodium chloride 0.9% (plus) 50 ML 100 MG IV ×3 (02:42→18:07)
[2022-04-24] MEDS: morphine IR 15 mg Tablet PO ×2 (03:21→19:49)
[2022-04-24] MEDS: ALPRAZolam 0.5 mg Tablet 0.25 MG PO ×2 (06:36→21:33)
[2022-04-24] MEDS: potassium chloride ER 20 mEq Tablet 40 MEQ PO (08:08)
[2022-04-24] MEDS: aspirin 81 mg EC Tablet PO (08:08)
[2022-04-24] MEDS: metOLazone 5 MG Tablet PO (08:08)
[2022-04-24] MEDS: FUROsemide 10 mg/mL SDV 4mL 40 MG IVP (08:08)
[2022-04-24] MEDS: clopidogrel 75 mg Tablet PO (08:08)
[2022-04-24] MEDS: enoxaparin 40 mg/0.4 mL Syringe SUBCUT (08:09)
--- NOTE | 2022-04-24 09:28 | PM.PN ---
Subjective Subjective: Patient is doing well. No complaints of chest pain. Breathing has improved significantly Vitals/I&O/Wt Last Vital Signs Temp 98.4 F 04/24/22 08:00 Pulse 94 04/24/22 08:00 Resp 15 04/24/22 08:00 BP 88/62 04/24/22 08:00 Pulse Ox 95 04/24/22 08:00 O2 Del Method 04/23/22 19:24 O2 Flow Rate 2 04/23/22 09:10 04/23/22 04/24/22 04/24/22 22:59 06:59 14:59 Intake Total 550 / 1250 150 / 1400 Balance 550 / 1250 150 / 1400 Physical Exam Narrative: GENERAL: Patient is alert, awake and oriented x3. [] NECK: No jugular vein distension. [] HEENT: No cyanosis. No icterus. No pallor. [] HEART: Regular S1 and S2. LUNGS: Decreased breath sounds with mild crackles. CENTRAL NERVOUS SYSTEM: Grossly nonfocal. [] EXTREMITIES: Lower extremities with 1+ edema bilaterally. Pulses palpable in the lower extremities, both dorsalis pedis and posterior tibial. [] Data 04/23/22 04:24 04/23/22 04:24 Micro: Microbiology 04/19/22 05:35 Blood Culture - Final Blood NO GROWTH AFTER 5 DAYS 04/19/22 05:30 Blood Culture - Final Blood NO GROWTH AFTER 5 DAYS 04/20/22 17:23 Gram Stain - Final Sputum - Expectorated Sputum Sputum Culture - Final Zara albicans A&P Assessment and plan (1) Troponin level elevated: (2) CHF (congestive heart failure): Qualifiers: Heart failure type: systolic Heart failure chronicity: acute Qualified Code(s): I50.21 - Acute systolic (congestive) heart failure (3) Diabetes: (4) Diabetic peripheral neuropathy associated with type 2 diabetes mellitus: Plan Continue diuretics at current dose. Plan for Lexiscan tomorrow. Recommendation for LAD revascularization based on that. Thank you for involving us with care of this patient. We will continue to follow. Please call with questions Attestations Medical Necessity Statement*: Care expected to cross 2 midnights. Coding Level of Care Code Acute Photographic Printer for [facility] Diagnoses Troponin level elevated R77.8 CHF (congestive heart failure) I50.21 Heart failure type: systolic Heart failure chronicity: acute Diabetes E11.9 Diabetic peripheral neuropathy associated with type 2 diabetes mellitus E11.42
--- NOTE | 2022-04-24 09:34 | PC.CHAP ---
Pastoral Care Encounter/Spiritual Assessment Type of Contact [] Declined manager testing visit [] Patient/Family/Request visit [] Outpatient visit [] Follow-up visit [] Physician referral [] Code/Alert [x] Routine visit [] Staff referral [] Actively dying [x] Patient sleeping [] Family support [] [] Out of room [] Palliative care [] [] Receiving care in room [] Pre-surgical visit [] Trauma [] Long length of stay [x] ICU visit [] Other: Relational/Emotional Strength [] Patient feels connected with others/family/visitors/staff [] Distress [] Loneliness/isolation [] Abandonment Spirituality of Patient [] Person of Raeann [] Attends Protestant of their Raeann [] Believes in Prayer [] Reads Bible or Samaritan materials [] There are Spiritual issues to be addressed Buckle Attacher Interventions [x] Prayer [] Active listening [] Non-anxious presence [] Spiritual/emotional support [] Crisis/trauma care [] Spiritual counseling [] Bereavement support [] Provided bereavement packet [] Provided Bible/devotional materials [] Provided toy/stuffed animal, coloring book to patient or family member [] Provided Communion [] Anointing/[place] [] Salvation [x] Completed spiritual assessment [] Other: Impact on Illness or Injury [] Angry [] Fearful [] Anxious [] Often cries [] Exhaustion [] Unable to work [] Unable to attend samaritan [] Unable to walk/stand [] Unable to read [] Unable to drive [] Unable to eat/drink [] Unable to sleep [] Unable to be with family [] Patient intubated [] Other: Summary Time spent with patient
[2022-04-24 12:17] LABS: Glucose Point of Care 144 mg/dL (70-110)
[2022-04-24] MEDS: fluconazole premix 100 MG/50 ML PREMIX IV (16:39)
--- NOTE | 2022-04-24 17:08 | PM.PN ---
Subjective Subjective: No acute interim events. Clinically improving. Is able to lie flat today. Not dyspneic. Medications: Medication Review Details: Generic Name Dose Route Start Last Admin Trade Name Freq PRN Reason Stop Dose Admin Albuterol/Ipratrop ium 3 ml 04/19/22 07:22 04/21/22 08:10 Ipratropium-Albu terol 3 Ml Neb INHALATION 3 ml Q6H PRN Administration SHORTNESS OF ISABEL TH Alprazolam 0.25 mg 04/19/22 18:22 04/22/22 20:40 Alprazolam 0.5 M g Tablet PO 0.25 mg TID PRN Administration ANXIETY Aspirin 81 mg 04/19/22 09:00 04/23/22 08:17 Aspirin 81 Mg Ec Tablet PO 81 mg DAILY BARBI Administration Atorvastatin Calci um 80 mg 04/19/22 21:00 04/22/22 20:34 Atorvastatin 40 Mg Tablet PO 80 mg BEDTIME BARBI Administration Benzonatate 200 mg 04/19/22 17:13 04/22/22 20:39 Benzonatate 100 Mg Capsule PO 200 mg TID PRN Administration COUGH Clopidogrel Bisulf ate 75 mg 04/19/22 09:00 04/23/22 08:18 Clopidogrel 75 M g Tablet PO 75 mg DAILY BARBI Administration Enoxaparin Sodium 40 mg 04/21/22 07:30 04/23/22 07:00 Enoxaparin 40 Mg /0.4 Ml Syringe SUBCUT 40 mg Q24H BARBI Administration Furosemide 40 mg 04/23/22 09:00 04/23/22 08:17 Furosemide 10 Mg /Ml Sdv 4ml IVP 40 mg DAILY BARBI Administration Meropenem 500 mg/ Sodium 50 mls @ 100 mls/ hr 04/19/22 10:00 04/23/22 10:50 Chloride IV Infused Q8H BARBI Infusion Norepinephrine Bit artrate 4 mg 254 mls @ 0 mls/h r 04/21/22 13:45 04/22/22 05:30 / Dextrose IV 0 mcg/min .Q0M BARBI 0 mls/hr Titration Protocol Per Protocol Fluconazole 100 mg in 50 mls @ 100 mls/hr 04/22/22 15:00 04/22/22 16:35 Diflucan Premix IV Infused Q24H BARBI Infusion Insulin Glargine 20 unit 04/19/22 21:00 04/22/22 20:50 Insulin Glargine 100 Units/1 Ml SUBCUT 20 unit BEDTIME BARBI Administration Insulin Human Lisp ro 0 unit 04/19/22 08:00 04/23/22 12:20 Insulin Lispro 1 00 Unit/1 Ml SUBCUT 6 unit TIDWM BARBI Administration Protocol Lisinopril 2.5 mg 04/19/22 09:00 04/21/22 08:10 Lisinopril 2.5 M g Tablet PO 2.5 mg DAILY BARBI Administration Metolazone 5 mg 04/20/22 10:00 04/23/22 08:17 Metolazone 5 Mg Tablet PO 5 mg DAILY BARBI Administration Morphine Sulfate 15 mg 04/19/22 07:22 04/22/22 20:46 Morphine Ir 15 M g Tablet PO 15 mg Q6H PRN Administration MODERATE PAIN Potassium Chloride 40 meq 04/22/22 09:15 04/23/22 08:17 Potassium Chlori de Er 20 Meq Table t PO 40 meq DAILY BARBI Administration Promethazine HCl/D extromethorphan 5 ml 04/20/22 12:00 04/23/22 12:20 Promethazine-Dm 6.25-15 Mg/5 Ml Sy rup PO 5 ml Q4H BARBI Administration Vitals/I&O/Wt Last Vital Signs Temp 98.4 F 04/24/22 12:00 Pulse 65 04/24/22 14:00 Resp 16 04/24/22 12:00 BP 88/64 04/24/22 12:00 Pulse Ox 92 04/24/22 10:38 O2 Del Method 04/24/22 10:38 O2 Flow Rate 2 04/23/22 09:10 04/24/22 04/24/22 04/24/22 06:59 14:59 22:59 Intake Total 150 / 1400 100 / 100 Output Total 1200 / 1200 Balance 150 / 1400 -1100 / -1100 Physical Exam Narrative: General: No acute distress, AO x3 HEENT: PERRLA, pupils bilaterally equal and reactive, pallors not present Chest: Normal vesicular breath sounds, no added sounds, equal good air entry bilaterally CVS: S1-S2 regular, no murmurs, no tachycardia, no gallops, no rubs Abdomen: Soft, nontender, no organomegaly, bowel sounds present Neuro: No focal deficits, no facial deformity, AO x3, power 5/5 in all limbs Data 04/23/22 04:24 04/23/22 04:24 Micro: Microbiology 04/19/22 05:35 Blood Culture - Final Blood NO GROWTH AFTER 5 DAYS 04/19/22 05:30 Blood Culture - Final Blood NO GROWTH AFTER 5 DAYS A&P Assessment and plan (1) Community acquired pneumonia: (2) Non-ST elevation CT (NSTEMI): (3) CHF (congestive heart failure): Qualifiers: Heart failure type: systolic Heart failure chronicity: acute Qualified Code(s): I50.21 - Acute systolic (congestive) heart failure (4) Diabetes: (5) Hypokalemia: Plan 46-year-old male with past medical history of DM,coronary artery disease status post PTCA of RCA, with existing significant mid LAD lesion, not intervene at that time because of hypotension and CHF exacerbation, and was due for the staged procedure, discharged on LifeVest was admitted with chief complaint of worsening shortness of breath with minimal exertion , PND , orthopnea ,worsening bilateral lower extremity swelling, worsening cough. Currently being managed for. Assessment: Decompensated heart failure with reduced ejection fraction NSTEMI Pneumonia History of coronary artery disease s/p recent PTCA to RCA Diabetes Plan: Blood culture:NTD MRSA PCR negative sputum gram stain and culture: Zara albicans. Urine Legionella antigen: Negative Bacterial antigen panel: Negative D-dimer:1.88 Monitor x-ray chest Currently on Lasix 40 twice daily as well as metolazone On lisinopril, aspirin statin Plavix Continue Lantus sliding scale insulin, monitor fingerstick glucose Monitor intake output charting Daily weight Monitor electrolytes Currently on broad-spectrum antibiotics vancomycin and meropenem. Sputum culture is growing Zara albicans: Less likely a true infection:Will empirically treat with fluconazole for 5 days. Continue telemetry monitoring Cardiology on board: Plans to do Lexiscan Plan for today: Awaiting Lexiscan stress test tomorrow. Nuclear medicine testing is not available today therefore we will have to hold off till tomorrow. Clinically he appears to be improving. Transfer to [facility].. 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
[2022-04-24 20:44] LABS: Glucose Point of Care 208 mg/dL (70-110)
[2022-04-24] MEDS: atorvastatin 40 mg Tablet 80 MG PO (21:33)
[2022-04-24] MEDS: insulin glargine 100 units/1 mL 20 UNIT SUBCUT (21:34)
[2022-04-25] VITALS (15 sets, daily range): BP systolic 75–109; BP diastolic 54–70; PULSE 97–111; RESP 12–21; TEMP 36.6–37.1; O2SAT 90–97
--- NOTE | 2022-04-25 | ECG_ITS ---
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 Interpretive Statements NAME OF STUDY: LEXISCAN SESTAMIBI STRESS TEST INDICATION: [Chest Pain, ] Procedure: At the baseline, the blood pressure was 109/39 mmHg with a heart rate of 108 bpm. The electrocardiogram showed normal sinus rhythm, normal axis with normal ST and T's. The Lexiscan was infused over a period of 20 seconds. A total of 0.4 mg of Lexiscan was infused. The stress phase was continued for a total of 5 minutes. Heart rate was at the end of stress phase was 111 bpm and a blood pressure of 78/57 mmHg. The EKG at the peak infusion revealed normal sinus rhythm with no significant ST-T wave changes. Sestamibi was injected 20 seconds after the Lexiscan infusion. Blood pressure at the end of recovery phase was 75/55 mmHg with a heart rate of 111 bpm. Conclusion: 1. Normal EKG response to Lexiscan infusion 2. No Lexiscan induced chest pain or cardiac arrhythmia. 3. Hypertensive blood pressure response. Appropriate heart rate response 4. Sestamibi/sestamibi perfusion scan pending; see separate report. Electronically Signed On 05-04-2022 19:13:35 [employer] by Rakan Herndon M.D. [id number]
[2022-04-25] MEDS: morphine IR 15 mg Tablet PO ×4 (00:56→23:41)
[2022-04-25] MEDS: meropenem 500 MG in sodium chloride 0.9% (plus) 50 ML 100 MG IV ×3 (02:47→17:37)
[2022-04-25 03:08] LABS: Basophils % 0.6 %; Eosinophils # 0.2 10^3/uL (0.0-0.8); Eosinophils % 2.8 %; Hematocrit 39.3 % (42.0-52.0); Hemoglobin 12.2 g/dL (11.7-16.6); Lymphocytes # 2.3 10^3/uL (0.8-4.8); Lymphocytes % 31.8 %; Mean Corpuscular Hemoglobin 26.5 pg (28.0-34.0); Mean Corpuscular Volume 85.2 fl (80-94); Mean Platelet Volume 11.2 fL (7.4-10.4); Monocytes # 0.6 10^3/uL (0.2-0.9); Monocytes % 8.5 %; Neutrophils # 3.97 10^3/uL (1.8-7.7); Neutrophils % 55.9 %; Nucleated Red Blood Cells % 0 %; Platelet Count 287 10^3/cmm (130-400); Red Blood Count 4.61 10^6/uL (4.1-5.3); Red Cell Distribution Width 14.8 % (12.1-15.1); White Blood Count 7.1 10^3/uL (4.0-10.0)
[2022-04-25 03:30] LABS: Alanine Aminotransferase 17 U/L (0-41); Albumin Level 3.2 g/dL (3.5-5.2); Alkaline Phosphatase 115 U/L (40-130); Aspartate Amino Transferase 28 U/L (0-40); Blood Urea Nitrogen 14 mg/dL (6-20); Calcium 8.8 mg/dL (8.5-10.5); Carbon Dioxide 29 mmol/L (22-29); Chloride 97 mmol/L (98-107); Globulin 3.2 g/dL (1.3-4.6); Glucose 105 mg/dL (65-115); Osmolality Calculated 283 mOsm/kg (285-295); Sodium 136 mmol/L (136-145); Total Bilirubin 0.6 mg/dL (0.15-1.2); Total Protein 6.4 g/dL (6.6-8.7)
[2022-04-25 06:18] LABS: Glucose Point of Care 81 mg/dL (70-110)
[2022-04-25] MEDS: regadenoson 0.4 Mg/5 ml Syringe IVP (07:30)
--- NOTE | 2022-04-25 09:02 | PM.PN ---
Subjective Subjective: Patient is doing well. No chest pain. Has minimal shortness of breath Vitals/I&O/Wt Last Vital Signs Temp 98.2 F 04/25/22 03:15 Pulse 102 H 04/25/22 06:00 Resp 14 04/25/22 05:31 BP 96/63 04/25/22 03:15 Pulse Ox 92 04/25/22 05:31 O2 Del Method 04/25/22 05:31 O2 Flow Rate 2 04/23/22 09:10 04/24/22 04/25/22 04/25/22 22:59 06:59 14:59 Intake Total 220 / 370 200 / 570 0 / 0 Output Total 1100 / 2300 650 / 2950 Balance -880 / -1930 -450 / -2380 0 / 0 Physical Exam Narrative: GENERAL: Patient is alert, awake and oriented x3. [] NECK: No jugular vein distension. [] HEENT: No cyanosis. No icterus. No pallor. [] HEART: Regular S1 and S2. LUNGS: Decreased breath sounds with mild crackles. CENTRAL NERVOUS SYSTEM: Grossly nonfocal. [] EXTREMITIES: Lower extremities with 1+ edema bilaterally. Pulses palpable in the lower extremities, both dorsalis pedis and posterior tibial. [] Data 04/25/22 02:17 04/25/22 02:17 Micro: Microbiology 04/19/22 05:35 Blood Culture - Final Blood NO GROWTH AFTER 5 DAYS 04/19/22 05:30 Blood Culture - Final Blood NO GROWTH AFTER 5 DAYS A&P Assessment and plan (1) Troponin level elevated: (2) CHF (congestive heart failure): Qualifiers: Heart failure chronicity: acute Heart failure type: systolic Qualified Code(s): I50.21 - Acute systolic (congestive) heart failure (3) Diabetes: (4) Diabetic peripheral neuropathy associated with type 2 diabetes mellitus: Plan Stress test was performed today that did not show any significant ischemia. He has large area of prior infarct in the LAD territory. We will treat him medically. Can initiate low-dose of beta-marialuisa. Continue lisinopril. Can switch to p.o. Lasix 40 mg twice daily tomorrow morning. Also continue metolazone 2.5 mg daily. Will need outpatient BMP and NT proBNP. Thank you for involving us with care of this patient. We will continue to follow. Please call with questions Attestations Medical Necessity Statement*: Care expected to cross 2 midnights. 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
[2022-04-25] MEDS: clopidogrel 75 mg Tablet PO (09:10)
[2022-04-25] MEDS: aspirin 81 mg EC Tablet PO (09:10)
[2022-04-25] MEDS: ALPRAZolam 0.5 mg Tablet 0.25 MG PO ×3 (09:10→20:52)
[2022-04-25] MEDS: metOLazone 5 MG Tablet PO (09:10)
[2022-04-25] MEDS: potassium chloride ER 20 mEq Tablet 40 MEQ PO (09:10)
[2022-04-25] MEDS: enoxaparin 40 mg/0.4 mL Syringe SUBCUT (09:11)
[2022-04-25] MEDS: FUROsemide 10 mg/mL SDV 4mL 40 MG IVP (09:59)
--- NOTE | 2022-04-25 10:00 | P.PN_ITS ---
Subjective Subjective: Patient underwent cardiac stress test this morning, pending results. No new complaints today. We will continue with IV diuresis. Medications: Reviewed: Yes Medication Review Details: Generic Name Dose Route Start Last Admin Trade Name Freq PRN Reason Stop Dose Admin Albuterol/Ipratrop ium 3 ml 04/19/22 07:22 04/21/22 08:10 Ipratropium-Albu terol 3 Ml Neb INHALATION 3 ml Q6H PRN Administration SHORTNESS OF ISABEL TH Alprazolam 0.25 mg 04/19/22 18:22 04/22/22 20:40 Alprazolam 0.5 M g Tablet PO 0.25 mg TID PRN Administration ANXIETY Aspirin 81 mg 04/19/22 09:00 04/23/22 08:17 Aspirin 81 Mg Ec Tablet PO 81 mg DAILY BARBI Administration Atorvastatin Calci um 80 mg 04/19/22 21:00 04/22/22 20:34 Atorvastatin 40 Mg Tablet PO 80 mg BEDTIME BARBI Administration Benzonatate 200 mg 04/19/22 17:13 04/22/22 20:39 Benzonatate 100 Mg Capsule PO 200 mg TID PRN Administration COUGH Clopidogrel Bisulf ate 75 mg 04/19/22 09:00 04/23/22 08:18 Clopidogrel 75 M g Tablet PO 75 mg DAILY BARBI Administration Enoxaparin Sodium 40 mg 04/21/22 07:30 04/23/22 07:00 Enoxaparin 40 Mg /0.4 Ml Syringe SUBCUT 40 mg Q24H BARBI Administration Furosemide 40 mg 04/23/22 09:00 04/23/22 08:17 Furosemide 10 Mg /Ml Sdv 4ml IVP 40 mg DAILY BARBI Administration Meropenem 500 mg/ Sodium 50 mls @ 100 mls/ hr 04/19/22 10:00 04/23/22 10:50 Chloride IV Infused Q8H BARBI Infusion Norepinephrine Bit artrate 4 mg 254 mls @ 0 mls/h r 04/21/22 13:45 04/22/22 05:30 / Dextrose IV 0 mcg/min .Q0M BARBI 0 mls/hr Titration Protocol Per Protocol Fluconazole 100 mg in 50 mls @ 100 mls/hr 04/22/22 15:00 04/22/22 16:35 Diflucan Premix IV Infused Q24H BARBI Infusion Insulin Glargine 20 unit 04/19/22 21:00 04/22/22 20:50 Insulin Glargine 100 Units/1 Ml SUBCUT 20 unit BEDTIME BARBI Administration Insulin Human Lisp ro 0 unit 04/19/22 08:00 04/23/22 12:20 Insulin Lispro 1 00 Unit/1 Ml SUBCUT 6 unit TIDWM BARBI Administration Protocol Lisinopril 2.5 mg 04/19/22 09:00 04/21/22 08:10 Lisinopril 2.5 M g Tablet PO 2.5 mg DAILY BARBI Administration Metolazone 5 mg 04/20/22 10:00 04/23/22 08:17 Metolazone 5 Mg Tablet PO 5 mg DAILY BARBI Administration Morphine Sulfate 15 mg 04/19/22 07:22 04/22/22 20:46 Morphine Ir 15 M g Tablet PO 15 mg Q6H PRN Administration MODERATE PAIN Potassium Chloride 40 meq 04/22/22 09:15 04/23/22 08:17 Potassium Chlori de Er 20 Meq Table t PO 40 meq DAILY BARBI Administration Promethazine HCl/D extromethorphan 5 ml 04/20/22 12:00 04/23/22 12:20 Promethazine-Dm 6.25-15 Mg/5 Ml Sy rup PO 5 ml Q4H BARBI Administration Vitals/I&O/Wt Last Vital Signs Temp 98.7 F 04/25/22 16:00 Pulse 107 H 04/25/22 16:00 Resp 18 04/25/22 16:00 BP 92/61 04/25/22 16:00 Pulse Ox 94 04/25/22 16:00 O2 Del Method 04/25/22 16:00 O2 Flow Rate 2 04/23/22 09:10 04/25/22 04/25/22 04/25/22 06:59 14:59 22:59 Intake Total 200 / 570 530 / 530 Output Total 650 / 2950 Balance -450 / -2380 530 / 530 Physical Exam Narrative: General: No acute distress, AO x3 HEENT: PERRLA, pupils bilaterally equal and reactive, pallors not present Chest: Normal vesicular breath sounds, no added sounds, equal good air entry bilaterally CVS: S1-S2 regular, no murmurs, no tachycardia, no gallops, no rubs Abdomen: Soft, nontender, no organomegaly, bowel sounds present Neuro: No focal deficits, no facial deformity, AO x3, power 5/5 in all limbs Data 04/25/22 02:17 04/25/22 02:17 A&P Assessment and plan (1) Community acquired pneumonia: (2) Non-ST elevation IN (NSTEMI): (3) CHF (congestive heart failure): Qualifiers: Heart failure type: systolic Heart failure chronicity: acute Qualified Code(s): I50.21 - Acute systolic (congestive) heart failure (4) Diabetes: (5) Hypokalemia: Plan 46-year-old male with past medical history of DM,coronary artery disease status post PTCA of RCA, with existing significant mid LAD lesion, not intervene at that time because of hypotension and CHF exacerbation, and was due for the staged procedure, discharged on LifeVest was admitted with chief complaint of worsening shortness of breath with minimal exertion , PND , orthopnea ,worsening bilateral lower extremity swelling, worsening cough. Currently being managed for. Assessment: Decompensated heart failure with reduced ejection fraction NSTEMI Pneumonia History of coronary artery disease s/p recent PTCA to RCA Diabetes Plan: Blood culture:NTD MRSA PCR negative sputum gram stain and culture: Zara albicans. Urine Legionella antigen: Negative Bacterial antigen panel: Negative D-dimer:1.88 Monitor x-ray chest Currently on Lasix 40 twice daily as well as metolazone On lisinopril, aspirin statin Plavix Continue Lantus sliding scale insulin, monitor fingerstick glucose Monitor intake output charting Daily weight Monitor electrolytes Currently on broad-spectrum antibiotics vancomycin and meropenem. Sputum culture is growing Zara albicans: Less likely a true infection:Will empirically treat with fluconazole for 5 days. Continue telemetry monitoring Cardiology on board: Plans to do Lexiscan Plan for today: Underwent cardiac stress test this morning, pending results, continue IV diuresis, further pending results of stress testing. CODE STATUS: Full code DVT prophylaxis: On Lovenox Attestations Medical Necessity Statement*: awaiting stress test results Coding Level of Care Code Acute Cable Wirer for Willa Fwdom Diagnoses Community acquired pneumonia J18.9 Non-ST elevation IN (NSTEMI) I21.4 CHF (congestive heart failure) I50.21 Heart failure type: systolic Heart failure chronicity: acute Diabetes E11.9 Hypokalemia E87.6
[2022-04-25 11:37] LABS: Glucose Point of Care 104 mg/dL (70-110)
[2022-04-25] MEDS: fluconazole premix 100 MG in empty flexible container 1 EACH 50 MG IV (15:49)
[2022-04-25 16:12] LABS: Glucose Point of Care 160 mg/dL (70-110)
--- NOTE | 2022-04-25 17:10 | NMCV_ITS ---
NM rochelle perf SPECT r/s* [id number] Alvaro Price Age: 46 Gender: M : 1975 Exam Date: 04/25/2022 06:43 Ordering Phys: Joellen Gonzalez MD Technologist: GLENDA Gaston Exam Location: [facility] Indications: CHEST PAIN STRESS TEST Please see separate stress test report in [facility] for full findings IMAGE PROTOCOL Rest/Stress 1 Lexiscan Day Radiopharmaceutical Dose (mCi) Administration Site Administered by Rest: Tc-99m 10.9 IV GLENDA Padgett Sestamibi Stress:Tc-99m 32.6 IV GLENDA Padgett Sestamibi Rest: 25-Apr-2022 60 Discovery 630 Stress: 25-Apr-2022 30 Discovery 630 0.4mg Lexiscan. Images obtained in supine and prone position. SPECT RESULTS Technical Quality: Good Raw Data Analysis: Normal Image Corrections: No attenuation or motion correction applied Summed Stress Score: 43 Summed Rest Score: 41 Summed Difference Score: 4 PERFUSION FINDINGS There is a large in size, fixed perfusion defect noted in the apical, apical anterior, anterior, apical septal, and inferoseptal defect. This is consistent with large sized prior infarct with no significant ischemia in the LAD territory. There is mostly fixed perfusion defect seen in inferior wall. This is consistent with large sized prior infarct in RCA territory minimal dhaval- infarct ischemia. Partially reversible perfusion defect is seen in the lateral wall consistent with medium sized prior infarct in the Left circumflex artery territory with dhaval-infarct ischemia FUNCTIONAL RESULTS (calculated via Gated SPECT) Stress Image LV EF (%): 20 Stress EDV (mL):227 TID: 1.23 Stress ESV (mL):182 FUNCTIONAL FINDINGS: LV systolic function is severely reduced with EF of 20%. Severe global hypokinesis is seen IMPRESSIONS 1. Abnormal myocardial perfusion imaging with large sized prior infarct seen in the LAD territory without significant ischemia. 2. Prior infarct with dhaval-infarct ischemia is seen in the RCA and Left circumflex artery territory. 3. LV systolic function is severely reduced Rakan Herndon MD (Electronically Signed) Final Date: 25 April 2022 15:19 S
[2022-04-25] MEDS: insulin lispro 100 unit/1 mL SUBCUT (17:37)
[2022-04-25 19:43] LABS: Glucose Point of Care 112 mg/dL (70-110)
[2022-04-25] MEDS: atorvastatin 40 mg Tablet 80 MG PO (20:52)
[2022-04-25] MEDS: insulin glargine 100 units/1 mL 20 UNIT SUBCUT (20:53)
[2022-04-26] MEDS: meropenem 500 MG in sodium chloride 0.9% (plus) 50 ML 100 MG IV (02:35)
[2022-04-26 03:11] VITALS: BP 101/67; PULSE 95; RESP 10; TEMP 36.7; O2SAT 93
[2022-04-26 05:21] VITALS: PULSE 91
[2022-04-26 06:15] LABS: Glucose Point of Care 81 mg/dL (70-110)
[2022-04-26 07:26] VITALS: BP 101/67; PULSE 95; RESP 17; TEMP 36.9; O2SAT 91
--- NOTE | 2022-04-26 07:39 | PM.PN ---
Subjective Subjective: Patient is doing well. No complaints of chest pain. Breathing has significantly improved. Vitals/I&O/Wt Last Vital Signs Temp 98.4 F 04/26/22 07:26 Pulse 95 04/26/22 07:26 Resp 17 04/26/22 07:26 BP 101/67 04/26/22 07:26 Pulse Ox 91 04/26/22 07:26 O2 Del Method 04/25/22 20:00 O2 Flow Rate 2 04/23/22 09:10 04/25/22 04/26/22 04/26/22 22:59 06:59 14:59 Intake Total 580 / 1110 475 / 1585 Balance 580 / 1110 475 / 1585 Physical Exam Narrative: GENERAL: Patient is alert, awake and oriented x3. [] NECK: No jugular vein distension. [] HEENT: No cyanosis. No icterus. No pallor. [] HEART: Regular S1 and S2. LUNGS: Decreased breath sounds CENTRAL NERVOUS SYSTEM: Grossly nonfocal. [] EXTREMITIES: Lower extremities with 1+ edema bilaterally. Pulses palpable in the lower extremities, both dorsalis pedis and posterior tibial. [] Data 04/25/22 02:17 04/25/22 02:17 A&P Assessment and plan (1) Troponin level elevated: (2) CHF (congestive heart failure): Qualifiers: Heart failure type: systolic Heart failure chronicity: acute Qualified Code(s): I50.21 - Acute systolic (congestive) heart failure (3) Diabetes: (4) Diabetic peripheral neuropathy associated with type 2 diabetes mellitus: Plan Patient is stable. He can be discharged home on p.o. Lasix He has lifevest Low-sodium diet and daily weights advised. Thank you for involving us with care of this patient. We will continue to follow. Please call with questions Attestations Medical Necessity Statement*: Care expected to cross 2 midnights. Coding Level of Care Code Acute Extermination Inspector for Koko Dias Diagnoses Troponin level elevated R77.8 CHF (congestive heart failure) I50.21 Heart failure type: systolic Heart failure chronicity: acute Diabetes E11.9 Diabetic peripheral neuropathy associated with type 2 diabetes mellitus E11.42
[2022-04-26 07:51] VITALS: PULSE 101; RESP 18; O2SAT 92
[2022-04-26 08:00] VITALS: PULSE 106
[2022-04-26] MEDS: enoxaparin 40 mg/0.4 mL Syringe SUBCUT (09:08)
[2022-04-26] MEDS: clopidogrel 75 mg Tablet PO (09:09)
[2022-04-26] MEDS: metOLazone 5 MG Tablet PO (09:09)
[2022-04-26] MEDS: potassium chloride ER 20 mEq Tablet 40 MEQ PO (09:11)
[2022-04-26] MEDS: FUROsemide 10 mg/mL SDV 4mL 40 MG IVP (09:11)
[2022-04-26] MEDS: aspirin 81 mg EC Tablet PO (09:12)
[2022-04-26 12:06] VITALS: BP 91/65; PULSE 106; RESP 16; TEMP 36.6; O2SAT 96
--- NOTE | 2022-04-26 12:12 | PM.DCS ---
Discharge Providers Date of Admission: 04/19/22 07:22 Date of Discharge: April 26, 2022 Attending Provider at Admission: Carine Candelario MD Attending Provider at Discharge: Joellen Gonzalez MD Diagnoses at Discharge Discharge Diagnosis (1) Troponin level elevated: Status: Acute (2) CHF (congestive heart failure): Status: Acute Qualifiers: Heart failure type: systolic Heart failure chronicity: acute Qualified Code(s): I50.21 - Acute systolic (congestive) heart failure (3) Diabetes: Status: Acute (4) Diabetic peripheral neuropathy associated with type 2 diabetes mellitus: Status: Acute Reason for Visit Reason for Visit: sob Hospital Course Hospital Course Alvaro rPice is a 46 year old male with a recent history of RI and congestive heart failure when he was found to have occluded RCA that underwent balloon angioplasty.? Mid LAD has critical stenosis which was noted to be a small caliber vessel.? It was not revascularized is was showing severe LV dysfunction and possible stress testing to assess ischemic burden/viability was recommended. He was discharged home but says he continued having shortness of breath to the point he was not able to lay down.? Also cannot walk any significant distance without having dyspnea.??EKG showed persistent ST elevations in anterior lateral/anterior leads.? This is persistent from previous admission.? Initial troponin was thousand that decreased to 2-hour recheck. NT pro BNP was elevated and was approx 4600. He had evidence of CHF for which he underwent iv diuresis. Once optimized from CHF standpoint, he underwent Lexiscan that did not show any significant ischemia.? He has large area of prior infarct in the LAD territory. Decision was made to treat him medically. His medications at discharge have been optimized to Lasix 40 mg p.o. twice daily, metolazone 2.5 mg p.o. daily, metoprolol reduced to 12.5 mg p.o. twice daily. Spironolactone has been discontinued. He is recommended to check a CMP and proBNP in 1 week and follow-up with cardiology in 1 week's time. Due to initial concern for additional component of pneumonia upon admission he received empiric antibiotics, however during course of admission most of his symptoms are related to CHF and antibiotics have not been continued upon discharge. Physical Exam Narrative: General: No acute distress, AO x3 HEENT: PERRLA, pupils bilaterally equal and reactive, pallors not present Chest: Normal vesicular breath sounds, no added sounds, equal good air entry bilaterally CVS: S1-S2 regular, no murmurs, no tachycardia, no gallops, no rubs Abdomen: Soft, nontender, no organomegaly, bowel sounds present Neuro: No focal deficits, no facial deformity, AO x3, power 5/5 in all limbs Discharge Data Studies Completed and Pending Completed Studies During Hospitalization Category Date Time Status Cardiac Stress Test MIBI [Sestamibi Stress Test Request Exams 04/25/22 06:54 Draft ] Routine XR chest 1V portable [id number] Routine Exams 04/22/22 05:00 Completed XR chest 1V portable [id number] Stat Exams 04/19/22 03:49 Completed XR chest 1V portable [id number] Stat Exams 04/20/22 08:18 Completed NM rochelle perf SPECT r/s* [id number] Routine Nuc Med 04/25/22 17:10 Completed Pending at discharge Category Date Time Status Cardiac Stress Test MIBI [Sestamibi Stress Test Request Exams 04/24/22 17:10 Stop Req ] Routine Radiology Impressions Chest X-Ray 04/22/22 05:00 IMPRESSION: Similar small bilateral pleural effusions with bibasilar airspace opacities. Laboratory Results WBC 7.1 10^3/uL (4.0-10.0) 04/25/22 02:17 RBC 4.61 10^6/uL (4.1-5.3) 04/25/22 02:17 Hgb 12.2 g/dL (11.7-16.6) 04/25/22 02:17 Hct 39.3 % (42.0-52.0) L 04/25/22 02:17 MCV 85.2 fl (80-94) 04/25/22 02:17 MCH 26.5 pg (28.0-34.0) L 04/25/22 02:17 MCHC 31.0 g/dL (30.0-36.0) 04/25/22 02:17 RDW 14.8 % (12.1-15.1) 04/25/22 02:17 Plt Count 287 10^3/cmm (130-400) 04/25/22 02:17 MPV 11.2 fL (7.4-10.4) H 04/25/22 02:17 Neut % (Auto) 55.9 % 04/25/22 02:17 Lymph % (Auto) 31.8 % 04/25/22 02:17 Curry % (Auto) 8.5 % 04/25/22 02:17 Eos % (Auto) 2.8 % 04/25/22 02:17 Baso % (Auto) 0.6 % 04/25/22 02:17 Neut # (Auto) 3.97 10^3/uL (1.8-7.7) 04/25/22 02:17 Lymph # (Auto) 2.3 10^3/uL (0.8-4.8) 04/25/22 02:17 Curry # (Auto) 0.6 10^3/uL (0.2-0.9) 04/25/22 02:17 Eos # (Auto) 0.2 10^3/uL (0.0-0.8) 04/25/22 02:17 Baso # (Auto) 0.0 10^3/uL (0.0-0.1) 04/25/22 02:17 Nucleated RBC % (auto) 0 % 04/25/22 02:17 Nucleated RBCs # 0.0 /100WBC 04/25/22 02:17 PT 14.10 SECONDS (12.1-14.9) 04/19/22 04:11 INR 1.06 (0.8-1.2) 04/19/22 04:11 D-Dimer 1.88 ug/mIFEU (0-0.59) H 04/21/22 01:42 Sodium 136 mmol/L (136-145) 04/25/22 02:17 Potassium 4.0 mmol/L (3.5-5.1) 04/25/22 02:17 Chloride 97 mmol/L (98-107) L 04/25/22 02:17 Carbon Dioxide 29 mmol/L (22-29) 04/25/22 02:17 Anion Gap 14.0 (5-19) 04/25/22 02:17 BUN 14 mg/dL (6-20) 04/25/22 02:17 Creatinine 0.7 mg/dL (0.7-1.2) 04/25/22 02:17 GFR Calculation 122.0 mL/min (90-130) 04/25/22 02:17 Glucose 105 mg/dL (65-115) 04/25/22 02:17 POC Glucose 81 mg/dL (70-110) 04/26/22 06:07 Calculated Osmolality 283 mOsm/kg (285-295) L 04/25/22 02:17 Calcium 8.8 mg/dL (8.5-10.5) 04/25/22 02:17 Magnesium 1.8 mg/dL (1.7-2.3) 04/20/22 01:53 Total Bilirubin 0.6 mg/dL (0.15-1.2) 04/25/22 02:17 AST 28 U/L (0-40) 04/25/22 02:17 ALT 17 U/L (0-41) 04/25/22 02:17 Alkaline Phosphatase 115 U/L (40-130) 04/25/22 02:17 Troponin T Baseline 1141 ng/L (0-15) H* 04/19/22 04:11 Troponin T 120 Minute 947.3 ng/L (0-15) H 04/19/22 06:01 Delta Troponin T -193.7 ABS# (0-10) L 04/19/22 06:01 Troponin T Hi Sens 6Hr 1065 ng/L (0-15) H 04/19/22 10:24 Troponin T Hi Sens 6Hr Delta -76 ng/L (0-12) L 04/19/22 10:24 NT-Pro-B Natriuret Pep 4646 pg/mL (0-125) H 04/19/22 04:11 Total Protein 6.4 g/dL (6.6-8.7) L 04/25/22 02:17 Albumin 3.2 g/dL (3.5-5.2) L 04/25/22 02:17 Globulin 3.2 g/dL (1.3-4.6) 04/25/22 02:17 Procalcitonin 0.13 ng/mL (0-0.5) 04/21/22 01:42 Vancomycin Trough 9.7 ug/mL (10-15) L 04/21/22 01:42 Influenza Type A Ag negative (Negative) 04/19/22 04:11 Influenza Type B Ag negative (Negative) 04/19/22 04:11 SARS-CoV-2 Ag (Rapid) negative (Negative) 04/19/22 04:11 Vitals Last Vital Signs Temp 97.9 F 04/26/22 12:06 Pulse 106 H 04/26/22 12:06 Resp 16 04/26/22 12:06 BP 91/65 04/26/22 12:06 Pulse Ox 96 04/26/22 12:06 O2 Del Method 04/26/22 07:51 O2 Flow Rate 2 04/23/22 09:10 Discharge Plan Discharge Patient Disposition: Home Condition: Stable Prescriptions: Continued promethazine-DM 6.25-15 mg/5 mL syrup 5 - 10 ml PO Q6H PRN (Reason: cough) Qty: 200 0RF budesonide-formoterol [Symbicort] 160-4.5 mcg/actuation HFA aerosol inhaler 2 puff inhalation Q12H Qty: 10.2 6RF albuterol sulfate [Ventolin HFA] 90 mcg/actuation HFA aerosol inhaler 2 puff inhalation 6XD PRN (Reason: shortness of breath or wheezing) Qty: 8.5 6RF insulin glargine 100 unit/mL solution 20 unit SUBCUT BEDTIME Qty: 15 3RF Rx Instructions: NOT STARTED 04/19/22 Humalog KwikPen Insulin 100 unit/mL insulin pen 2 unit SUBCUT AC Qty: 15 2RF Rx Instructions: NOT SARTED 04/19/22 metformin 500 mg tablet 500 mg PO BID Tylenol 325 mg Capsule 650 mg PO QID PRN (Reason: Pain) atorvastatin 40 mg Tablet 80 mg PO BEDTIME Qty: 30 9RF clopidogrel 75 mg Tablet 75 mg PO DAILY Qty: 30 3RF aspirin 81 mg Tablet,Delayed Release (Dr/Ec) 81 mg PO DAILY Qty: 100 3RF nitroglycerin 0.4 mg Tablet, Sublingual 0.4 mg sublingual Q5M PRN (Reason: Chest Pain) Qty: 25 2RF lisinopril 2.5 mg Tablet 2.5 mg PO DAILY Qty: 30 3RF Januvia 50 mg tablet 50 mg PO DAILY Qty: 30 3RF Changed furosemide 40 mg Tablet 40 mg PO BID 30 Days Qty: 60 0RF metoprolol tartrate 25 mg tablet 12.5 mg PO BID 30 Days Qty: 60 0RF Discontinued doxycycline hyclate 100 mg capsule 100 mg PO BID 10 Days Qty: 20 0RF spironolactone 25 mg Tablet 12.5 mg PO DAILY Qty: 30 3RF Discharge Orders: Discharge Order (Routine); Ordered 04/26/22 Ordered By: Joellen Gonzalez Other Ambulatory Orders: Comprehensive Metabolic Panel (Routine) Timeframe: 1 Week Facility: [facility] - Location: Lab - Main Lab Ordered By: Joellen Gonzalez NT Pro B Type Natriuretic Pept (Routine) Timeframe: 1 Week Facility: [facility] - Location: Lab - Main Lab Ordered By: Joellen Gonzalez Referrals: Gina Trejo FNP [Nurse Practitioner] - 1 week ([facility] will call you with an appointment to be seen by Gina Trejo within one week.) Discharge Diet: Usual diet Discharge Activity: Resume usual activity Patient Instructions: Congestive Heart Failure, Opioid Safety Discharge Attestations Time Spent in Discharge Care*: greater than 30 min Quality Metrics Clinical Quality Measures [ No reported AMI, CVA or VTE this stay] Coding Level of Care Code Acute [facility] note Diagnoses Troponin level elevated R77.8 CHF (congestive heart failure) I50.21 Heart failure type: systolic Heart failure chronicity: acute Diabetes E11.9 Diabetic peripheral neuropathy associated with type 2 diabetes mellitus E11.42
--- NOTE | 2022-04-26 13:03 | PC.NURSE ---
Patient was discharged at 1301 via wheelchair to the main entrance. Instructions and education given. Patient verbalized understanding. IV removed and intact.
--- NOTE | 2022-04-26 16:20 | PC.PHAR ---
This patient was discharged out of the system before I and the other nurse on the floor had a chance to waste the Alprazolam in the Pyxis. I took the 0.25mg of Alprazolam and put in the medication waste bottle with the red lid in the med room. Funmi Hroowitz RN verified waste visually.
== END 2022-04-26 13:01 | disposition home or self-care (01) | DRG 280 ==
LOC: ER 05:17 → ICU 05:26 → CSU 04-24 18:50
PROVIDERS: Internal Medicine; Admitting Provider Internal Medicine; Emergency Provider Emergency Medicine; Visit Provider Student in an Organized Health Care Education/Training Program
DX: I50.23 Acute on chronic systolic (congestive) heart failure (principal); J18.9 Pneumonia, unspecified organism; I21.4 Non-ST elevation (NSTEMI) myocardial infarction; R77.8 Other specified abnormalities of plasma proteins; I25.10 Atherosclerotic heart disease of native coronary artery without angina pectoris; Z98.61 Coronary angioplasty status; E11.42 Type 2 diabetes mellitus with diabetic polyneuropathy; I25.5 Ischemic cardiomyopathy; Z88.2 Allergy status to sulfonamides; F17.220 Nicotine dependence, chewing tobacco, uncomplicated; Z79.51 Long term (current) use of inhaled steroids; Z79.4 Long term (current) use of insulin; Z79.84 Long term (current) use of oral hypoglycemic drugs; Z79.02 Long term (current) use of antithrombotics/antiplatelets; Z79.82 Long term (current) use of aspirin; E87.6 Hypokalemia
CPT/HCPCS: 36415; 36416; 71045; 78452; 80048; 80053; 80202; 82962; 83735; 83880; 84145; 84484; 85025; 85378; 85610; 86403; 87040; 87070; 87205; 87426; 87449; 87641; 87804; 93005; 93017; 94640; 96365; 96367; 96372; 96374; 99285; A9500; J0131; J0456; J0696; J1450; J1650; J1815; J1940; J2185; J2543; J2785; J3370; J3480; J7050; J7060

== ENCOUNTER → 2022-05-16 12:38 | Outpatient (BNVA) | payer BC, SELFPAY | PROVIDERS: Visit Provider Nurse Practitioner Family | DX: I25.10 Atherosclerotic heart disease of native coronary artery without angina pectoris (principal); I50.21 Acute systolic (congestive) heart failure; F17.200 Nicotine dependence, unspecified, uncomplicated | CPT/HCPCS: 80048; 83880 ==

== ENCOUNTER 2022-06-09 08:39 | Outpatient (CLI) | payer BC, SELFPAY ==
--- NOTE | 2022-06-09 08:42 | CT_ITS ---
WS: [id number] CT ABDOMEN AND PELVIS WITH CONTRAST HISTORY: DIVERTICULITIS TECHNIQUE: Imaging performed of the abdomen and pelvis with IV contrast. Single phase imaging of the abdomen. Coronal and sagittal reformats are submitted. All CT scans at [facility] use at [address] one of these dose optimization techniques: automated exposure control; mA and/or kV adjustment per patient size (includes targeted exams where dose is matched to clinical indication); or iterative re construction. IV CONTRAST: Omnipaque 350; 100 mL IV. Oral contrast: Yes. DLP: 608.80 mGy.cm COMPARISON: None available. Lower thorax: Moderate RIGHT and small LEFT pleural effusions with compressive atelectasis. There is bronchial wall thickening at the lung bases and along the medial RIGHT lung which may be in part rela dian to mucous plugging or bronchitis. Heart is normal size. No hiatal hernia. Liver/biliary system: Very heterogeneous, mosaic appearance of the liver. There is tricuspid regurgit ation into hepatic veins. Favor hepatic congestion. Liver is mildly enlarged 18 cm in length. Diffuse periportal edema. The portal vein is normally enhancing. IVC is is mildly enlarged at 3.2 cm with va riable enhancement. Gallbladder: Distended gallbladder with mild wall thickening. No stones identified. Pancreas: Normal size pancreas and pancreatic duct. No adjacent inflammation. Spleen: Normal size spleen. No mass or infarct. Adrenal glands: Normal. Right kidney: Normal. Left kidney: Normal. Aorta: Mild atherosclerosis. Lymphadenopathy: There are a few very small lymph nodes at the vee hepatis. No adenopathy. Free fluid: Small amount of ascites within the pelvis. There is mesenteric edema. Diffuse soft tissue anasarca. GI tract: Well-distended stomach. No small bowel obstruction. Diffuse extensive fecal retention. No o bstructing lesions identified. The appendix is not identified but there is no evidence for acute appe ndicitis. Abdominal wall: Diffuse soft tissue anasarca. Pelvis: Well-distended urinary bladder. Small amount of ascites in the pelvis. No adenopathy. Bones: No destructive bone lesions. CT/CT abdomen pelvis w con* [id number] IMPRESSION: 1. Moderate RIGHT and small LEFT pleural effusions with bibasilar areas of ate lectasis and bronchial thickening. 2. Mildly enlarged liver with heterogeneity and changes suggestive of passive hepatic congestion. Causes of hepatic congestion include CHF, tricuspid insuffi ciency, Budd-Chiari syndrome and cirrhosis. 3. Diffuse soft tissue anasarca with a small amount of ascites and mesenteric edema. 4. Marked constipation. 5. Mildly distended gallbladder with wall thickening. Probably on the basis of hepatocellular disease. No cholelithiasis or bile duct dilatation.
[2022-06-09] MEDS: iohexol 350 mg/mL 500 mL Btl (per mL) PO ×2 (08:49)
== END 2022-06-09 08:40 | disposition home or self-care (01) ==
LOC: RAD 08:40
PROVIDERS: PCP Internal Medicine; Visit Provider Internal Medicine
DX: K57.92 Diverticulitis of intestine, part unspecified, without perforation or abscess without bleeding (principal); J90 Pleural effusion, not elsewhere classified; R16.0 Hepatomegaly, not elsewhere classified; R60.1 Generalized edema; K59.00 Constipation, unspecified
CPT/HCPCS: 74177; Q9967

== ENCOUNTER 2022-07-14 06:18 | Outpatient (CLI) | payer BC, SELFPAY ==
--- NOTE | 2022-07-14 06:30 | USCV_ITS ---
Alvaro Price Age: 47 Gender: M : 1975 Exam Date: 07/14/2022 06:44 Ordering Phys: Gina Trejo Technologist: ESTEPHANIA Exam Location: [facility]_ Indication: FOLLOW UP ECHO FROM 03/2022 WITH 30% EF BP: 121 / 75 HR: 74 Rhythm: Sinus Technical Quality: Good MEASUREMENTS (Male / Female) Normal Values 2D ECHO LVOT Diameter 2.0 cm LV Ejection Fraction MOD 2C 22.5 % LV Ejection Fraction 2C AL 22.4 % LA Diameter 4.2 cm LA Width 4.0 cm LA Height 5.5 cm RA Width 4.0 cm RA Height 5.2 cm Aorta at Sinotubular Diameter 2.0 cm IVC Diameter 2.2 cm M-MODE Aortic Annulus Diameter 2.7 cm LA Ao Ratio MM 1.6 MV E Point Septal Separation 1.9 cm DOPPLER Right Atrial Pressure 15.0 mmHg FINDINGS Left Ventricle Severely increased left ventricular cavity size. Severely decreased left ventricular systolic function. Left ventricular ejection fraction is estimated at 20 %. Right Ventricle Right Atrium Left Atrium Mitral Valve Aortic Valve Tricuspid Valve Pulmonic Valve Pericardium Aorta IVC Dilated IVC with decreased respiratory variation. CONCLUSIONS 1-Severely increased left ventricular cavity size. Severely decreased left ventricular systolic function. Left ventricular ejection fraction is estimated at 20 %. 2-There is no pericardial effusion. 3-Right atrial pressure is around 20 mm of mercury. Carine Oliva MD (Electronically Signed) Final Date: 15 July 2022 02:24 S
== END 2022-07-14 06:19 | disposition home or self-care (01) ==
LOC: RAD 06:19
PROVIDERS: PCP Internal Medicine; Visit Provider Nurse Practitioner Family
DX: I21.19 ST elevation (STEMI) myocardial infarction involving other coronary artery of inferior wall (principal); I25.10 Atherosclerotic heart disease of native coronary artery without angina pectoris; I42.9 Cardiomyopathy, unspecified; I50.9 Heart failure, unspecified
CPT/HCPCS: 93308

== ENCOUNTER 2022-07-20 10:19 | Inpatient (IN) | payer BC, SELFPAY ==
[2022-07-20] VITALS (96 sets, daily range): BP systolic 74–120; BP diastolic 53–81; PULSE 47–103; RESP 12–29; O2SAT 69–98; BMI 28.8
--- NOTE | 2022-07-20 11:00 | XR_ITS ---
WS: [id number] EXAMINATION: XR chest 1V portable [id number] REASON FOR EXAM: CHF COMPARISON: 04/19/2022 ORDER DATE: 07/20/2022 11:22 AM TECHNIQUE: A single, portable frontal chest x-ray was obtained. X-RAY FINDINGS: Lungs: Minimal bibasal atelectasis Pleural spaces: Similar small bilateral pleural effusions. No pneumothorax. Heart/Mediastinum: Unremarkable. No cardiomegaly. Bones/joints: Unremarkable. XR/XR chest 1V portable [id number] IMPRESSION: Similar small bilateral pleural effusions
[2022-07-20 11:17] LABS: Glucose Point of Care 183 mg/dL (70-110)
--- NOTE | 2022-07-20 11:17 | P.HP_ITS ---
Providers/Chief Complaint Admitting Physician: Ken Lerma MD Primary Care Provider: Jose Dunbar MD Chief Complaint: uncontrolled CHF History of Present Illness Alvaro Price is a 47 year old male who presents from cardiothoracic surgery clinic with concerns of significant fluid overload. Over the last month he has become increasingly short of breath. Over the last week he has noticed increasing lower extremity edema as well as some abdominal distention. He has had nausea, and even occasional vomiting. He has had weight loss since his hospitalization in March. He denies any chest discomfort. He has an occasional cough but it is not really productive. No blood in his stool or black or tarry stools. No abdominal discomfort. He is frequently constipated. Review of Systems General: Reports: 10 or more systems reviewed and unremarkable except in HPI and below Const: Reports: fatigue; Denies: fever(s) or chills Card: Reports: orthopnea; Denies: chest pain Resp: Reports: dyspnea and non-productive cough GI: Reports: nausea, vomiting and constipation; Denies: abdominal pain, hematochezia or melena Medications/Allergies Home Medications Medication Instructions Recorded Confirmed Last Taken Type insulin lispro 100 unit/mL 2 unit (0.02 mL) SUBCUT AC #15 mL 04/10/22 07/20/22 U nknown Rx subcutaneous pen (Humalog KwikPen (U-100) Insulin) aspirin 81 mg tablet,delayed 81 mg PO DAILY #100 tabs 04/14/22 07/20/22 Unknown Rx release atorvastatin 40 mg tablet 80 mg PO BEDTIME #30 tabs 04/14/22 07/20/22 Unknown Rx clopidogrel 75 mg tablet 75 mg PO DAILY #30 tabs 04/14/22 07/20/22 Unknown Rx nitroglycerin 0.4 mg sublingual 0.4 mg sublingual Q5M PRN Chest 04/14/22 07/20/22 Unknown Rx tablet Pain #25 tabs sitagliptin phosphate 50 mg tablet 50 mg PO DAILY #30 tabs 04/14/22 07/20/22 Unknown Rx (Januvia) acetaminophen 325 mg capsule 650 mg PO QID PRN Pain 04/19/22 07/20/22 Unknown History (Tylenol) metformin 500 mg tablet 500 mg PO BID 04/19/22 07/20/22 Unknown History furosemide 40 mg tablet See Rx Instructions PO .COMPLEX 07/20/22 Unknown History Allergies Allergy/AdvReac Type Severity Reaction Status Date / Time Sulfa (Sulfonamide Allergy ALGY-Rash Verified 07/20/22 09:18 Antibiotics) PFSH Acute PFSH: Medical History (Updated 07/20/22 @ 12:42 by Ken Lerma MD) Abnormal EKG Abscess of right foot excluding toes Atherosclerosis of coronary artery Cardiomyopathy Cellulitis of right foot CHF (congestive heart failure) Diabetes Diabetic peripheral neuropathy associated with type 2 diabetes mellitus Elevated troponin Foot abscess, right Impaired glucose tolerance Myocardial infarction, inferior wall No pertinent family history No pertinent past medical history Non-pressure chronic ulcer of other part of right foot with necrosis of muscle Pressure ulcer with full thickness skin loss involving damage or necrosis of subcutaneous tissue Surgical History (Updated 07/20/22 @ 12:42 by Ken Lerma MD) Hx of coronary angiogram Balloon angioplasty RCA April 12 Family History Father CAD (coronary artery disease) Stroke Mother Cancer Grandmother Diabetes Social History Smoking and tobacco status: current every day smoker smokeless tobacco Smokeless tobacco user: snuff Smokeless tobacco details: can per day x 40 yrs Second hand smoke exposure: No Alcohol intake: current Alcohol intake frequency: holidays/special occasions only Alcohol type: beer Adopted: No Caregiver/support person: Yes Lives independently: Yes Household members: other Marital status: Unknown service: No Current occupational status: employed Current occupation: [employer] Current gender identity: Male Special wagner needs: No Vitals/I&O/Wt Last Vital Signs O2 Del Method 07/20/22 10:35 Weight last 48 hrs Weight 85.871 kg Physical Exam Narrative: General exam is a white male, no distress but when trying to lay flat becomes short of breath HEENT: Atraumatic and normocephalic. Oropharynx clear. Neck is supple no lymphadenopathy thyromegaly Cardiovascular regular rate and rhythm, no murmur, no rub Lungs few crackles at the bases Abdomen is soft. Slight distention. No obvious organomegaly exam is deferred Extremities 2+ edema bilaterally Skin no rash Neuro no obvious focal deficits Data 07/20/22 11:34 Other Labs: BNP 9177 CMP reviewed TSH 1.69 Magnesium 2.0 Probable small bilateral pleural effusions per my read. Doubt pneumonia Echocardiogram July 14 demonstrated severe increased LV size, EF around 20% EKG demonstrates sinus rhythm, Q waves inferiorly, poor R wave progression per my read A&P Assessment and plan (1) CHF (congestive heart failure): Acute systolic heart failure, very low EF at 20% He already has chest vest on Initiate diuresis with Lasix 40 mg IV every 12 hours Consideration for dobutamine, but will hold off at this point after discussion with cardiology Close monitoring of electrolytes daily with magnesium and BMP TSH and magnesium level were checked today and normal Chest x-ray demonstrated bilateral pleural effusions, expected with his congestive heart failure Would like to add AMBER inhibitor low-dose beta-marialuisa but may not be tolerated by blood pressure. Will first diurese. Qualifiers: Heart failure chronicity: acute Heart failure type: systolic Qualified Code(s): I50.21 - Acute systolic (congestive) heart failure (2) Diabetes: Sliding scale insulin Plan Hypokalemia, supplement Other medical problems as noted in past medical history. Full code Lovenox for DVT prophylaxis Attestations Medical Necessity Statement*: Will need greater than 2 midnight stay for evaluation and treatment of acute systolic congestive heart failur Diagnoses CHF (congestive heart failure) I50.21 Heart failure chronicity: acute Heart failure type: systolic Diabetes E11.9 Time Spent (min) 46
--- NOTE | 2022-07-20 11:38 | ECG_ITS ---
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 Measurements Intervals [place] Rate: 97 P: 59 ID: [id number] QRS: -58 QRSD: 85 T: 89 QT: 363 QTc: 461 Interpretive Statements SINUS RHYTHM POSSIBLE LEFT ATRIAL ENLARGEMENT [-0.1mV P-WAVE IN V1/V2] LOW QRS VOLTAGE IN EXTREMITY LEADS [QRS DEFLECTION < 0.5 mV IN LIMB LEADS] INFERIOR MYOCARDIAL INFARCTION , PROBABLY OLD [40+ ms Q WAVE AND/OR ST/T ABNORMALITY IN II/aVF] ANTEROSEPTAL MYOCARDIAL INFARCTION , OF INDETERMINATE AGE [40+ ms Q WAVE IN V1-V4] Compared to ECG 04/19/2022 09:18:55 T-wave abnormality no longer present Possible ischemia no longer present Myocardial infarct finding still present Electronically Signed On 07-21-2022 23:08:19 CDT by Jamir Ball M.D. [id number]
[2022-07-20 11:46] LABS: Basophils % 0.4 %; Eosinophils # 0.1 10^3/uL (0.0-0.8); Eosinophils % 1.7 %; Hematocrit 36.2 % (42.0-52.0); Hemoglobin 11.5 g/dL (11.7-16.6); Lymphocytes # 1.1 10^3/uL (0.8-4.8); Lymphocytes % 13.7 %; Mean Corpuscular HGB Conc 31.8 g/dL (30.0-36.0); Mean Corpuscular Hemoglobin 26.2 pg (28.0-34.0); Mean Corpuscular Volume 82.5 fl (80-94); Mean Platelet Volume 11.7 fL (7.4-10.4); Monocytes # 0.6 10^3/uL (0.2-0.9); Monocytes % 7.9 %; Neutrophils # 5.86 10^3/uL (1.8-7.7); Nucleated Red Blood Cells % 0 %; Platelet Count 189 10^3/cmm (130-400); Red Blood Count 4.39 10^6/uL (4.1-5.3); Red Cell Distribution Width 14.5 % (12.1-15.1); White Blood Count 7.7 10^3/uL (4.0-10.0)
[2022-07-20] MEDS: sennosides-docusate Tablet 2 TAB PO ×2 (11:51→17:16)
[2022-07-20] MEDS: enoxaparin 40 mg/0.4 mL Syringe SUBCUT (11:51)
[2022-07-20] MEDS: insulin lispro 100 unit/1 mL SUBCUT ×3 (11:52→21:08)
--- NOTE | 2022-07-20 11:58 | P.CONIM_ITS ---
Providers/Reason For Consult Consulting Physician/Specialty*: Rakan Herndon MD/ Cardiology Reason for Consult*: Acute on chronic congestive heart failure Requesting Physician: Dr Lerma Attending Physician: Ken Lerma MD Primary Care Provider: Jose Dunbar MD History of Present Illness History of Present Illness Alvaro Price is a 47 year old male with recent acute FL and underwent revascularization of RCA. LAD had severe stenosis however had infarction with no significant ischemia on Lexiscan. Medical therapy was pursued. Patient has severely reduced LV systolic function with EF of 20%. He was referred to CT surgery office for ICD placement. Was found to be volume overloaded and was sent to the hospital. His NT proBNP is significantly elevated and is more than 9000. He has abdominal distension, and lower extremity edema. Significant shortness of breath. No chest pain. Review of Systems General: Reports: 10 or more systems reviewed and unremarkable except in HPI and below Const: Reports: fatigue; Denies: fever(s) or chills Card: Reports: orthopnea; Denies: chest pain Resp: Reports: dyspnea and non-productive cough GI: Reports: nausea, vomiting and constipation; Denies: abdominal pain, hematochezia or melena Medications/Allergies Home Medications Medication Instructions Recorded Confirmed Last Taken Type insulin lispro 100 unit/mL 2 unit (0.02 mL) SUBCUT AC #15 mL 04/10/22 07/21/22 Unknown Rx subcutaneous pen (Humalog KwikPen (U-100) Insulin) aspirin 81 mg tablet,delayed 81 mg PO DAILY #100 tabs 04/14/22 07/21/22 Unknown Rx release atorvastatin 40 mg tablet 80 mg PO BEDTIME #30 tabs 04/14/22 07/21/22 Unknown Rx clopidogrel 75 mg tablet 75 mg PO DAILY #30 tabs 04/14/22 07/21/22 Unknown Rx nitroglycerin 0.4 mg sublingual 0.4 mg sublingual Q5M PRN Chest 04/14/22 07/21/22 Unknown Rx tablet Pain #25 tabs sitagliptin phosphate 50 mg tablet 50 mg PO DAILY #30 tabs 04/14/22 07/21/22 Unknown Rx (Januvia) acetaminophen 325 mg capsule 650 mg PO QID PRN Pain 04/19/22 07/21/22 Unknown History (Tylenol) metformin 500 mg tablet 500 mg PO BID 04/19/22 07/21/22 Unknown History furosemide 40 mg tablet See Rx Instructions PO .COMPLEX 07/20/22 07/21/22 Unknown History alprazolam 0.25 mg tablet 0.25 mg PO BID 07/21/22 07/21/22 Unknown History dicyclomine 10 mg capsule 10 mg PO Q8H PRN Abdominal 07/21/22 07/21/22 Unknown History Discomfort pantoprazole 40 mg tablet,delayed 40 mg PO DAILY 07/21/22 07/21/22 Unknown History release Allergies Allergy/AdvReac Type Severity Reaction Status Date / Time Sulfa (Sulfonamide Allergy ALGY-Rash Verified 07/20/22 09:18 Antibiotics) Current Medications Generic Name Dose Route Start Last Admin Trade Name Freq PRN Reason Stop Dose Admin Enoxaparin Sodium 40 mg 07/20/22 11:00 07/20/22 11:51 Enoxaparin 40 Mg/0.4 Ml Syringe SUBCUT 40 mg Q24H BARBI Administration Insulin Human Lispro 0 unit 07/20/22 12:00 07/20/22 11:52 Insulin Lispro 100 Unit/1 Ml SUBCUT 4 unit WM&BEDTIME BARBI Administration Protocol Senna/Docusate Sodium 2 tab 07/20/22 11:10 07/20/22 11:51 Sennosides-Docusate Tablet PO 2 tab BID BARBI Administration PFSH Acute PFSH: Medical History Abnormal EKG Abscess of right foot excluding toes Atherosclerosis of coronary artery Cardiomyopathy Cellulitis of right foot CHF (congestive heart failure) Diabetes Diabetic peripheral neuropathy associated with type 2 diabetes mellitus Elevated troponin Foot abscess, right Impaired glucose tolerance Myocardial infarction, inferior wall No pertinent family history No pertinent past medical history Non-pressure chronic ulcer of other part of right foot with necrosis of muscle Pressure ulcer with full thickness skin loss involving damage or necrosis of subcutaneous tissue Surgical History Hx of coronary angiogram Balloon angioplasty RCA April 12 Family History Father CAD (coronary artery disease) Stroke Mother Cancer Grandmother Diabetes Social History (Reviewed 07/21/22 @ 14:39 by Delio Koo Smoking and tobacco status: current every day smoker smokeless tobacco Smokeless tobacco user: snuff Smokeless tobacco details: can per day x 40 yrs Second hand smoke exposure: No Alcohol intake: current Alcohol intake frequency: holidays/special occasions only Alcohol type: beer Adopted: No Caregiver/support person: Yes Lives independently: Yes Household members: other Marital status: Unknown service: No Current occupational status: employed Current occupation: [employer] Current gender identity: Male Special wagner needs: No Vitals/I&O/Wt Last Vital Signs Pulse 97 07/20/22 11:50 Resp 19 H 07/20/22 11:50 BP 105/70 07/20/22 11:50 Pulse Ox 95 07/20/22 11:50 O2 Del Method 07/20/22 10:35 Weight last 48 hrs Weight 189 lb 5 oz Physical Exam Narrative: GENERAL: Patient is alert, awake and oriented x3. [] NECK: No jugular vein distension. [] HEENT: No cyanosis. No icterus. No pallor. [] HEART: Regular S1 and S2. LUNGS: Clear to auscultate bilaterally. [] ABDOMEN: Distended CENTRAL NERVOUS SYSTEM: Grossly nonfocal. [] EXTREMITIES: Lower extremities with 1-2 + edema Data 07/20/22 11:34 A&P Assessment and plan (1) Atherosclerosis of coronary artery: (2) CHF (congestive heart failure): Qualifiers: Heart failure type: systolic Heart failure chronicity: acute Qualified Code(s): I50.21 - Acute systolic (congestive) heart failure (3) Diabetes: (4) Cardiomyopathy: (5) Diabetic peripheral neuropathy associated with type 2 diabetes mellitus: Plan Patient has presented with acute on chronic congestive heart failure. He has ischemic cardiomyopathy. Lexiscan shows no significant ischemia, has infarction. We will recommend starting IV diuretics 40 mg twice daily of Lasix. Close I&O's. Monitor renal function. He does not appear to be in cardiogenic shock. Extremities are warm and labs are normal. We will hold off on inotropes at this time. We will benefit from referral to advanced heart failure team for evaluation for possible transplant/advanced therapies. Low-sodium diet advised Thank you for involving us with care of this patient. We will continue to follow. Please call with questions Consult Attestations Medical Necessity Statement: Care expected to cross 2 midnights. Coding Level of Care Code Acute Code for Chg Fwd Diagnoses Atherosclerosis of coronary artery I25.10 CHF (congestive heart failure) I50.21 Heart failure type: systolic Heart failure chronicity: acute Diabetes E11.9 Cardiomyopathy I42.9 Diabetic peripheral neuropathy associated with type 2 diabetes mellitus E11.42
[2022-07-20 12:19] LABS: NT Pro B Type Natriuretic Pept 9177 pg/mL (0-125); Thyroid Stimulating Hormone 1.69 uIU/mL (0.27-4.20)
[2022-07-20 14:02] LABS: Alanine Aminotransferase 8 U/L (0-41); Alkaline Phosphatase 83 U/L (40-130); Anion Gap 17.3 (5-19); Aspartate Amino Transferase 11 U/L (0-40); Blood Urea Nitrogen 21 mg/dL (6-20); Calcium 8.9 mg/dL (8.5-10.5); Carbon Dioxide 29 mmol/L (22-29); Chloride 92 mmol/L (98-107); Globulin 2.4 g/dL (1.3-4.6); Glomerular Filtration Rate 104.1 mL/min (90-130); Glucose 167 mg/dL (65-115); Osmolality Calculated 287 mOsm/kg (285-295); Potassium 3.3 mmol/L (3.5-5.1); Sodium 135 mmol/L (136-145); Total Bilirubin 0.5 mg/dL (0.15-1.2); Total Protein 6.4 g/dL (6.6-8.7)
[2022-07-20] MEDS: potassium chloride ER 20 mEq Tablet 40 MEQ PO (14:28)
[2022-07-20] MEDS: ALPRAZolam 0.5 mg Tablet PO (14:28)
[2022-07-20] MEDS: TRAMadol 50 mg Tablet PO ×2 (15:49→21:07)
[2022-07-20 17:12] LABS: Glucose Point of Care 145 mg/dL (70-110)
[2022-07-20] MEDS: FUROsemide 10 mg/mL SDV 4mL 40 MG IVP (17:16)
[2022-07-20] MEDS: atorvastatin 40 mg Tablet 80 MG PO (21:07)
[2022-07-20 21:10] LABS: Glucose Point of Care 148 mg/dL (70-110)
[2022-07-21] VITALS (15 sets, daily range): BP systolic 83–129; BP diastolic 55–89; PULSE 88–98; RESP 12–25; TEMP 36.5; O2SAT 90–96
[2022-07-21 05:31] LABS: Basophils # 0.1 10^3/uL (0.0-0.1); Basophils % 0.7 %; Eosinophils # 0.1 10^3/uL (0.0-0.8); Hematocrit 37.1 % (42.0-52.0); Hemoglobin 11.6 g/dL (11.7-16.6); Lymphocytes # 1.6 10^3/uL (0.8-4.8); Lymphocytes % 22.9 %; Mean Corpuscular HGB Conc 31.3 g/dL (30.0-36.0); Mean Corpuscular Hemoglobin 26.1 pg (28.0-34.0); Mean Corpuscular Volume 83.4 fl (80-94); Mean Platelet Volume 12.2 fL (7.4-10.4); Monocytes # 0.7 10^3/uL (0.2-0.9); Monocytes % 9.5 %; Neutrophils # 4.61 10^3/uL (1.8-7.7); Neutrophils % 64.6 %; Nucleated Red Blood Cells % 0 %; Platelet Count 193 10^3/cmm (130-400); Red Blood Count 4.45 10^6/uL (4.1-5.3); Red Cell Distribution Width 14.6 % (12.1-15.1); White Blood Count 7.1 10^3/uL (4.0-10.0)
[2022-07-21 05:53] LABS: Alanine Aminotransferase 8 U/L (0-41); Albumin Level 3.6 g/dL (3.5-5.2); Alkaline Phosphatase 83 U/L (40-130); Anion Gap 14.9 (5-19); Aspartate Amino Transferase 12 U/L (0-40); Blood Urea Nitrogen 22 mg/dL (6-20); Calcium 8.9 mg/dL (8.5-10.5); Carbon Dioxide 31 mmol/L (22-29); Chloride 98 mmol/L (98-107); Globulin 2.3 g/dL (1.3-4.6); Glomerular Filtration Rate 90.8 mL/min (90-130); Glucose 92 mg/dL (65-115); Osmolality Calculated 293 mOsm/kg (285-295); Potassium 3.9 mmol/L (3.5-5.1); Sodium 140 mmol/L (136-145); Total Bilirubin 0.6 mg/dL (0.15-1.2); Total Protein 5.9 g/dL (6.6-8.7)
[2022-07-21] MEDS: FUROsemide 10 mg/mL SDV 4mL 40 MG IVP ×2 (06:22→17:27)
[2022-07-21 07:45] LABS: Glucose Point of Care 104 mg/dL (70-110)
[2022-07-21] MEDS: TRAMadol 50 mg Tablet PO ×2 (07:49→19:15)
[2022-07-21 08:08] LABS: Lipase 16 U/L (13-60)
--- NOTE | 2022-07-21 08:22 | PM.PN ---
Subjective Subjective: Alvaro reports he still has some nausea/vomiting when coughing. He does admit the cough is less. He is able to lay more flat. He denies any chest discomfort. He still has some occasional cramping in his left abdomen. Legs are less swollen according to patient. Medications: Reviewed: Yes Vitals/I&O/Wt Last Vital Signs Pulse 98 07/21/22 07:00 Resp 25 H 07/21/22 07:00 BP 129/89 07/21/22 07:00 Pulse Ox 96 07/21/22 07:00 O2 Del Method 07/21/22 07:00 07/20/22 07/21/22 07/21/22 22:59 06:59 14:59 Intake Total 460 / 820 100 / 920 Balance 460 / 820 100 / 920 Weight last 48 hrs Weight 84.907 kg Weight 85.871 kg Physical Exam Narrative: General exam is a white male, today with less distress regarding shortness of breath Neck is supple no lymphadenopathy thyromegaly Cardiovascular regular rate and rhythm, no murmur, no rub Lungs few crackles at the bases Abdomen is soft. Slight distention. No obvious organomegaly Extremities trace edema bilaterally Skin no rash Data 07/21/22 04:51 07/21/22 04:51 A&P Assessment and plan (1) CHF (congestive heart failure): Acute systolic heart failure, very low EF at 20% He already has chest vest on Continue Lasix 40 mg IV every 12 hours Discussed with nursing accurate ins and outs Consideration for dobutamine initially, but it appears the diuresis can be accomplished without this. Close monitoring of electrolytes daily with magnesium and BMP to monitor for renal toxicity while on IV diuretic TSH and magnesium level were checked and normal Chest x-ray demonstrated bilateral pleural effusions, expected with his congestive heart failure Would like to add AMBER inhibitor low-dose beta-marialuisa but may not be tolerated by blood pressure. Will first diurese. Qualifiers: Heart failure type: systolic Heart failure chronicity: acute Qualified Code(s): I50.21 - Acute systolic (congestive) heart failure (2) Diabetes: Sliding scale insulin Plan Hypokalemia, supplemented and normal today Other medical problems as noted in past medical history. History of constipation. Laxatives started. He still has some abdominal discomfort. On Protonix as well. Check lipase. Full code Lovenox for DVT prophylaxis Transfer to [facility] Attestations Medical Necessity Statement*: Needs continued hospitalization for further diuresis to complete optimization secondary to his congestive heart failure, bilateral pleural effusions. Diagnoses CHF (congestive heart failure) I50.21 Heart failure type: systolic Heart failure chronicity: acute Diabetes E11.9 Time Spent (min) 29
[2022-07-21] MEDS: sennosides-docusate Tablet 2 TAB PO (09:24)
[2022-07-21] MEDS: pantoprazole DR 40 mg Tablet PO (09:24)
[2022-07-21] MEDS: aspirin 81 mg EC Tablet PO (09:25)
[2022-07-21] MEDS: clopidogrel 75 mg Tablet PO (09:25)
[2022-07-21] MEDS: ondansetron 2 mg/ML SDV 2 mL 4 MG IVP ×2 (09:53→16:45)
[2022-07-21 12:41] LABS: Glucose Point of Care 113 mg/dL (70-110)
[2022-07-21] MEDS: enoxaparin 40 mg/0.4 mL Syringe SUBCUT (13:54)
--- NOTE | 2022-07-21 14:55 | PM.PN ---
Subjective Subjective: Patient is doing well. No chest pain. Has been diuresing well. Hemodynamically stable. Vitals/I&O/Wt Last Vital Signs Pulse 95 07/21/22 13:00 Resp 22 H 07/21/22 13:00 BP 99/66 07/21/22 13:00 Pulse Ox 94 07/21/22 13:00 O2 Del Method 07/21/22 13:00 07/20/22 07/21/22 07/21/22 22:59 06:59 14:59 Intake Total 460 / 820 100 / 920 Output Total 450 / 450 Balance 460 / 820 100 / 920 -450 / -450 Weight last 48 hrs Weight 187 lb 3 oz Weight 189 lb 5 oz Physical Exam Narrative: GENERAL: Patient is alert, awake and oriented x3. [] NECK: No jugular vein distension. [] HEENT: No cyanosis. No icterus. No pallor. [] HEART: Regular S1 and S2. LUNGS: Clear to auscultate bilaterally. [] ABDOMEN: Distended CENTRAL NERVOUS SYSTEM: Grossly nonfocal. [] EXTREMITIES: Lower extremities with 1+ edema Data 07/21/22 04:51 07/21/22 04:51 A&P Assessment and plan (1) Atherosclerosis of coronary artery: (2) CHF (congestive heart failure): Qualifiers: Heart failure type: systolic Heart failure chronicity: acute Qualified Code(s): I50.21 - Acute systolic (congestive) heart failure (3) Diabetes: (4) Cardiomyopathy: (5) Diabetic peripheral neuropathy associated with type 2 diabetes mellitus: Plan Patient has presented with acute on chronic congestive heart failure. He has ischemic cardiomyopathy. Lexiscan shows no significant ischemia, has infarction. Continue Lasix 40mg BID. Will need close monitoring and documentation of I and Os. Continue monitoring renal function We will benefit from referral to advanced heart failure team for evaluation for possible transplant/advanced therapies. Low-sodium diet advised Patient is stable to be transferred out of ICU Thank you for involving us with care of this patient. We will continue to follow. Please call with questions Attestations Medical Necessity Statement*: Care expected to cross 2 midnights. Coding Level of Care Code Acute Code for [facility] Fwd Diagnoses Atherosclerosis of coronary artery I25.10 CHF (congestive heart failure) I50.21 Heart failure type: systolic Heart failure chronicity: acute Diabetes E11.9 Cardiomyopathy I42.9 Diabetic peripheral neuropathy associated with type 2 diabetes mellitus E11.42
[2022-07-21 16:53] LABS: Glucose Point of Care 114 mg/dL (70-110)
[2022-07-21] MEDS: atorvastatin 40 mg Tablet 80 MG PO (20:42)
[2022-07-21 21:47] LABS: Glucose Point of Care 143 mg/dL (70-110)
[2022-07-21] MEDS: insulin lispro 100 unit/1 mL SUBCUT (21:48)
[2022-07-21] MEDS: ALPRAZolam 0.5 mg Tablet PO (21:51)
[2022-07-22] VITALS (9 sets, daily range): BP systolic 94–112; BP diastolic 61–75; PULSE 62–95; RESP 12–18; TEMP 36.2–36.9; O2SAT 82–98
--- NOTE | 2022-07-22 00:54 | PC.NURSE ---
MOLD CLEANING AND STORAGE SUPERVISOR informed nurse that patient's vitals were taken and oxygen was saturating in the 80s on room air. 1.5L oxygen via nasal cannula was applied to patient, and oxygen saturations have come back up into the high 90s. Dr Kidd was informed of change in vitals.
[2022-07-22] MEDS: FUROsemide 10 mg/mL SDV 4mL 40 MG IVP (05:15)
--- NOTE | 2022-07-22 05:21 | PC.NURSE ---
MACHINE BRUSH MAKER reported to this nurse that patient's O2 saturations dropped again to 80s. Patient had O2 off at this point. Nurse rounded with patient and educated about the risks of keeping oxygen off. Nurse asked patient to keep nasal cannula on, and patient verbalized understanding to risks of removing it and agreed to keep it on.
[2022-07-22 05:50] LABS: Basophils # 0.1 10^3/uL (0.0-0.1); Eosinophils # 0.2 10^3/uL (0.0-0.8); Eosinophils % 2.8 %; Hematocrit 39.4 % (42.0-52.0); Hemoglobin 12.1 g/dL (11.7-16.6); Lymphocytes # 1.9 10^3/uL (0.8-4.8); Lymphocytes % 28.1 %; Mean Corpuscular HGB Conc 30.7 g/dL (30.0-36.0); Mean Corpuscular Hemoglobin 25.8 pg (28.0-34.0); Mean Platelet Volume 12.2 fL (7.4-10.4); Monocytes # 0.6 10^3/uL (0.2-0.9); Neutrophils # 4.07 10^3/uL (1.8-7.7); Nucleated Red Blood Cells % 0 %; Platelet Count 193 10^3/cmm (130-400); Red Blood Count 4.69 10^6/uL (4.1-5.3); Red Cell Distribution Width 14.5 % (12.1-15.1); White Blood Count 6.9 10^3/uL (4.0-10.0)
[2022-07-22 06:10] LABS: Anion Gap 14.7 (5-19); Blood Urea Nitrogen 30 mg/dL (6-20); Carbon Dioxide 31 mmol/L (22-29); Chloride 95 mmol/L (98-107); Glomerular Filtration Rate 65.2 mL/min (90-130); Glucose 100 mg/dL (65-115); Magnesium 2.1 mg/dL (1.7-2.3); Osmolality Calculated 288 mOsm/kg (285-295); Potassium 4.7 mmol/L (3.5-5.1); Sodium 136 mmol/L (136-145)
--- NOTE | 2022-07-22 06:55 | PM.PN ---
Subjective Subjective: Patient is stable. Diuresing. Breathing has improved Vitals/I&O/Wt Last Vital Signs Temp 97.4 F L 07/22/22 04:00 Pulse 91 07/22/22 04:00 Resp 15 07/22/22 04:00 BP 94/61 07/22/22 04:00 Pulse Ox 82 L 07/22/22 04:00 O2 Del Method 07/22/22 04:00 07/21/22 07/21/22 07/22/22 14:59 22:59 06:59 Intake Total 780 / 780 0 / 780 Output Total 450 / 450 Balance -450 / -450 780 / 330 0 / 330 Weight last 48 hrs Weight 184 lb 8 oz Weight 187 lb 3 oz Weight 189 lb 5 oz Physical Exam Narrative: GENERAL: Patient is alert, awake and oriented x3. [] NECK: No jugular vein distension. [] HEENT: No cyanosis. No icterus. No pallor. [] HEART: Regular S1 and S2. LUNGS: Clear to auscultate bilaterally. [] ABDOMEN: Distended CENTRAL NERVOUS SYSTEM: Grossly nonfocal. [] EXTREMITIES: Lower extremities with 1+ edema Data 07/22/22 05:12 07/22/22 05:12 A&P Assessment and plan (1) Atherosclerosis of coronary artery: (2) CHF (congestive heart failure): Qualifiers: Heart failure type: systolic Heart failure chronicity: acute Qualified Code(s): I50.21 - Acute systolic (congestive) heart failure (3) Diabetes: (4) Cardiomyopathy: (5) Diabetic peripheral neuropathy associated with type 2 diabetes mellitus: Patient is overall stable. Creatinine and BUN has worsened today. Can down titrate Lasix. Monitor renal function and close I&O's. We will continue to follow. Please call with questions. Plan Patient has presented with acute on chronic congestive heart failure. He has ischemic cardiomyopathy. Lexiscan shows no significant ischemia, has infarction. Continue Lasix 40mg BID. Will need close monitoring and documentation of I and Os. Continue monitoring renal function We will benefit from referral to advanced heart failure team for evaluation for possible transplant/advanced therapies. Low-sodium diet advised Patient is stable to be transferred out of ICU Thank you for involving us with care of this patient. We will continue to follow. Please call with questions Attestations Medical Necessity Statement*: Care expected to cross 2 midnights. Coding Level of Care Code Acute Code for Chg Fwd Diagnoses Atherosclerosis of coronary artery I25.10 CHF (congestive heart failure) I50.21 Heart failure type: systolic Heart failure chronicity: acute Diabetes E11.9 Cardiomyopathy I42.9 Diabetic peripheral neuropathy associated with type 2 diabetes mellitus E11.42
[2022-07-22 07:05] LABS: Glucose Point of Care 95 mg/dL (70-110)
[2022-07-22] MEDS: aspirin 81 mg EC Tablet PO (09:58)
[2022-07-22] MEDS: clopidogrel 75 mg Tablet PO (09:58)
[2022-07-22] MEDS: pantoprazole DR 40 mg Tablet PO (09:58)
[2022-07-22] MEDS: sennosides-docusate Tablet 2 TAB PO ×2 (09:58→18:19)
[2022-07-22] MEDS: TRAMadol 50 mg Tablet PO ×2 (10:02→18:27)
[2022-07-22] MEDS: ALPRAZolam 0.5 mg Tablet PO ×2 (10:03→23:10)
[2022-07-22] MEDS: enoxaparin 40 mg/0.4 mL Syringe SUBCUT (12:01)
[2022-07-22] MEDS: metoprolol tartrate 25 mg Tablet 12.5 MG PO ×2 (12:02→20:35)
[2022-07-22] MEDS: ondansetron 2 mg/ML SDV 2 mL 4 MG IVP ×2 (12:08→22:16)
[2022-07-22 12:36] LABS: Iron 49 ug/dL (59-158); Percent Saturation 33.3 % (20-50); Total Iron Binding Capacity 147 mcg/dl; Unsaturated Iron Binding 98 ug/dL (112-347)
[2022-07-22 12:51] LABS: Vitamin B12 689 pg/mL (232-1245)
--- NOTE | 2022-07-22 17:00 | P.PN_ITS ---
Subjective Subjective: Hospital course, labs appreciated. On examination laying comfortably in bed with 40% of head of the bed elevated. On 2 L saturating more than 90%. On room air going down to 88% has remained hemodynamically stable. Denies any chest pain. Walking around without having any difficulty. States feeling weak. No events on telemetry. Vitals/I&O/Wt Last Vital Signs Temp 97.2 F L 07/22/22 15:46 Pulse 86 07/22/22 15:46 Resp 18 07/22/22 15:46 BP 112/74 07/22/22 15:46 Pulse Ox 98 07/22/22 15:46 O2 Del Method 07/22/22 15:46 07/22/22 07/22/22 07/22/22 06:59 14:59 22:59 Intake Total 0 / 780 240 / 240 Output Total 700 / 700 Balance 0 / 330 -460 / -460 Weight last 48 hrs Weight 83.688 kg Weight 84.907 kg Physical Exam Narrative: General: No acute distress, AO x3, NC oxygen supplementation, chronically sick appearing HEENT: PERRLA, pupils bilaterally equal and reactive Chest:Bronchial breath sounds b/l ,decreased air entry, equal good air entry bilaterally, no more fine basal crackles CVS: S1-S2 regular, no murmurs, no tachycardia, no gallops, no rubs Abdomen: Soft, nontender, no organomegaly, bowel sounds present, morbidly obese Neuro: No focal deficits, no facial deformity, AO x3, power 5/5 in all limbs Data 07/22/22 05:12 07/22/22 05:12 A&P Assessment and plan (1) CHF (congestive heart failure): Ischemic cardiomyopathy. EF of 20% with severely decreased LV function and d ilated LV cavity. Patient looking compensated for now. Switch from IV to oral Lasix 40 mg twice daily. Strict input output charting. Daily weights. Fluid restriction up to 1200 to 1500 cc. Supplementation keeping saturation over 90%. Most likely patient will require oxygen on sleeping on mild exertion. Will do home O2 evaluation prior to discharge. Qualifiers: Heart failure type: systolic Heart failure chronicity: acute Qualified Code(s): I50.21 - Acute systolic (congestive) heart failure (2) Cardiomyopathy: Start on heart failure modification medications. Start on metoprolol 12.5 mg twice daily. Uptitrate as per blood pressures. Add lisinopril and 24 hours of remained hemodynamically stable.. Monitor electrolytes including potassium and magnesium. No active chest pain. Continue with aspirin, statin, Plavix. Check A1c, lipid panel. (3) Diabetes: Insulin sliding scale. Plan Full code. Cardiac carb consistent diet. Lovenox for DVT prophylaxis. Protonix for PUD prophylaxis. Attestations Medical Necessity Statement*: Continues hospitalization for management of congestive heart failure in a patient with ischemic cardiomyopathy with a EF of 20% Diagnoses CHF (congestive heart failure) I50.21 Heart failure type: systolic Heart failure chronicity: acute Cardiomyopathy I42.9 Diabetes E11.9
[2022-07-22] MEDS: FUROsemide 40 mg Tablet PO (18:19)
[2022-07-22 18:22] LABS: Glucose Point of Care 174 mg/dL (70-110)
[2022-07-22] MEDS: insulin lispro 100 unit/1 mL SUBCUT ×2 (18:24→23:10)
[2022-07-22 19:08] LABS: Folate Level 12.6 ng/mL (4.5-32.2)
[2022-07-22] MEDS: atorvastatin 40 mg Tablet 80 MG PO (20:35)
--- NOTE | 2022-07-22 20:41 | PC.NURSE ---
Patient's O2 was reported to be in the low 90s by the CROSS [employer]. Nurse went in and educated patient that oxygen needed to stay in the 90s, and explained the risks associated with low oxygen levels. Patient stated this is normal for me, I just don't take deep breaths is all. My belly is pressing up on my lungs is which is why my oxygen is low. I'm good. Patient did verbalize understanding that nurse will want to apply oxygen if O2 saturations drop into 80s.
[2022-07-22 21:23] LABS: Glucose Point of Care 144 mg/dL (70-110)
--- NOTE | 2022-07-22 22:20 | PC.NURSE ---
Patient requested Xanax. When nurse came back with Xanax and scheduled insulin, patient also stated that he felt like he was going to throw up. Zofran was administered. Nurse held insulin and xanax until patient felt better to take them.
--- NOTE | 2022-07-22 23:44 | PC.NURSE ---
Patient was given Xanax upon patient request.
[2022-07-23] VITALS (7 sets, daily range): BP systolic 103–113; BP diastolic 72–79; PULSE 82–105; RESP 14–16; TEMP 36.4–36.9; O2SAT 90–95; BMI 28.0
--- NOTE | 2022-07-23 02:43 | ECG_ITS ---
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 Measurements Intervals [place] Rate: 88 P: 66 WV: 147 QRS: 255 QRSD: 86 T: 115 QT: 386 QTc: 467 Interpretive Statements SINUS RHYTHM RIGHT AXIS DEVIATION [QRS AXIS > 100] LOW QRS VOLTAGE IN EXTREMITY LEADS [QRS DEFLECTION < 0.5 mV IN LIMB LEADS] POSSIBLE ANTERIOR MYOCARDIAL INFARCTION , PROBABLY OLD [30 ms Q WAVE IN V3/V4, OR R < 0.2 mV IN V4] INFERIOR MYOCARDIAL INFARCTION , PROBABLY OLD [40+ ms Q WAVE AND/OR ST/T ABNORMALITY IN II/aVF] Compared to ECG 07/20/2022 11:38:03 Right-axis deviation now present Myocardial infarct finding still present Electronically Signed On 07-23-2022 7:19:00 CDT by Rakan Herndon M.D. [id number]
[2022-07-23] MEDS: calcium carbonate 500 mg Chew Tablet PO (03:13)
--- NOTE | 2022-07-23 03:24 | PC.NURSE ---
Due to repeated nausea/vomiting and no relief from Zofran, Dr Waller was informed of the situation. EKG was ordered on patient and results sent to Dr Waller. Patient was also given a Tums.
[2022-07-23 05:26] LABS: Basophils # 0.1 10^3/uL (0.0-0.1); Basophils % 0.7 %; Eosinophils # 0.1 10^3/uL (0.0-0.8); Eosinophils % 1.6 %; Hematocrit 38.3 % (42.0-52.0); Lymphocytes # 1.1 10^3/uL (0.8-4.8); Lymphocytes % 15.2 %; Mean Corpuscular HGB Conc 31.3 g/dL (30.0-36.0); Mean Corpuscular Hemoglobin 26.1 pg (28.0-34.0); Mean Corpuscular Volume 83.4 fl (80-94); Mean Platelet Volume 11.7 fL (7.4-10.4); Monocytes # 0.7 10^3/uL (0.2-0.9); Monocytes % 9.2 %; Neutrophils # 5.17 10^3/uL (1.8-7.7); Neutrophils % 73.2 %; Nucleated Red Blood Cells % 0 %; Platelet Count 220 10^3/cmm (130-400); Red Blood Count 4.59 10^6/uL (4.1-5.3); Red Cell Distribution Width 14.4 % (12.1-15.1); White Blood Count 7.1 10^3/uL (4.0-10.0)
[2022-07-23 05:41] LABS: Estmated Average Glucose 197; Hemoglobin A1C 8.5 % (4.0-6.0)
[2022-07-23 05:44] LABS: Alanine Aminotransferase 90 U/L (0-41); Albumin Level 3.7 g/dL (3.5-5.2); Alkaline Phosphatase 91 U/L (40-130); Aspartate Amino Transferase 102 U/L (0-40); Blood Urea Nitrogen 34 mg/dL (6-20); Calcium 8.8 mg/dL (8.5-10.5); Carbon Dioxide 29 mmol/L (22-29); Chloride 95 mmol/L (98-107); Globulin 2.4 g/dL (1.3-4.6); Glomerular Filtration Rate 65.2 mL/min (90-130); Glucose 94 mg/dL (65-115); Osmolality Calculated 291 mOsm/kg (285-295); Sodium 137 mmol/L (136-145); Total Bilirubin 0.6 mg/dL (0.15-1.2); Total Protein 6.1 g/dL (6.6-8.7)
[2022-07-23 05:45] LABS: Cholesterol 112 mg/dL (0-200); HDL Cholesterol 28 mg/dL (60-100); LDL Cholesterol Calculated 66 mg/dL (50-129); Triglycerides 89 mg/dL (0-150); VLDL Cholestrol Calculation 18 mg/dL (0-30)
[2022-07-23 06:49] LABS: Glucose Point of Care 89 mg/dL (70-110)
--- NOTE | 2022-07-23 08:13 | ECG_ITS ---
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 Measurements Intervals [place] Rate: 83 P: 56 [place]: 148 QRS: 175 QRSD: 85 T: 88 QT: 394 QTc: 465 Interpretive Statements SINUS RHYTHM RIGHT AXIS DEVIATION [QRS AXIS > 100] LOW QRS VOLTAGE IN EXTREMITY LEADS [QRS DEFLECTION < 0.5 mV IN LIMB LEADS] ANTEROSEPTAL MYOCARDIAL INFARCTION , PROBABLY OLD [40+ ms Q WAVE IN V1-V4] Compared to ECG 07/23/2022 03:12:02 No significant changes Electronically Signed On 07-23-2022 22:36:54 CDT by Rakan Herndon M.D. [id number]
[2022-07-23] MEDS: pantoprazole DR 40 mg Tablet PO ×2 (08:42→17:26)
[2022-07-23] MEDS: sennosides-docusate Tablet 2 TAB PO ×2 (08:42→17:26)
[2022-07-23] MEDS: aspirin 81 mg EC Tablet PO (08:42)
[2022-07-23] MEDS: clopidogrel 75 mg Tablet PO (08:42)
[2022-07-23] MEDS: FUROsemide 40 mg Tablet PO ×2 (10:06→17:26)
[2022-07-23 10:09] LABS: Creatine Phosphokinase 53 U/L (39-308)
[2022-07-23 10:23] LABS: Lactate (Lactic Acid level) 1.2 mmol/L (0.5-2.2)
[2022-07-23] MEDS: enoxaparin 40 mg/0.4 mL Syringe SUBCUT (11:23)
--- NOTE | 2022-07-23 11:28 | PC.NURSE ---
Pt Refusal: Pt refused 0900 Metoprolol. Nurse educated pt on importance of taking medication to help reduce blood pressure and maintain heart function. Pt stated, I won't be taking this at home and I know my body better than any of you. Dr. Joyner notified.
[2022-07-23 11:37] LABS: Glucose Point of Care 93 mg/dL (70-110)
--- NOTE | 2022-07-23 12:51 | PM.PN ---
Subjective Subjective: Patient feeling better. On room air. LFTs have gone up. Vitals/I&O/Wt Last Vital Signs Temp 97.6 F 07/23/22 12:03 Pulse 105 H 07/23/22 12:03 Resp 15 07/23/22 12:03 BP 113/79 07/23/22 12:03 Pulse Ox 95 07/23/22 12:03 O2 Del Method 07/23/22 12:03 07/22/22 07/23/22 07/23/22 22:59 06:59 14:59 Intake Total 831 / 1071 0 / 1071 120 / 120 Output Total 525 / 1225 Balance 831 / 371 -525 / -154 120 / 120 Weight last 48 hrs Weight 184 lb 8 oz Weight 184 lb 8 oz Physical Exam Narrative: GENERAL: Patient is alert, awake and oriented x3. [] NECK: No jugular vein distension. [] HEENT: No cyanosis. No icterus. No pallor. [] HEART: Regular S1 and S2. LUNGS: Clear to auscultate bilaterally. [] ABDOMEN: Distended CENTRAL NERVOUS SYSTEM: Grossly nonfocal. [] EXTREMITIES: Lower extremities with 1+ edema Data 07/23/22 05:00 07/23/22 05:00 A&P Assessment and plan (1) Atherosclerosis of coronary artery: (2) CHF (congestive heart failure): Qualifiers: Heart failure type: systolic Heart failure chronicity: acute Qualified Code(s): I50.21 - Acute systolic (congestive) heart failure (3) Diabetes: (4) Cardiomyopathy: (5) Diabetic peripheral neuropathy associated with type 2 diabetes mellitus: Renal function has worsened. Lasix downtitrated. LFTs elevated Check lactate. If features of cardiogenic shock, we may start on dobutamine but clinically not in shock at this time. We will continue to follow. Please call with questions. Plan Patient has presented with acute on chronic congestive heart failure. He has ischemic cardiomyopathy. Lexiscan shows no significant ischemia, has infarction. Continue Lasix 40mg BID. Will need close monitoring and documentation of I and Os. Continue monitoring renal function We will benefit from referral to advanced heart failure team for evaluation for possible transplant/advanced therapies. Low-sodium diet advised Patient is stable to be transferred out of ICU Thank you for involving us with care of this patient. We will continue to follow. Please call with questions Attestations Medical Necessity Statement*: Care expected to cross 2 midnights. Coding Level of Care Code Acute Code for [facility] Fwd Diagnoses Atherosclerosis of coronary artery I25.10 CHF (congestive heart failure) I50.21 Heart failure type: systolic Heart failure chronicity: acute Diabetes E11.9 Cardiomyopathy I42.9 Diabetic peripheral neuropathy associated with type 2 diabetes mellitus E11.42
[2022-07-23] MEDS: ALPRAZolam 0.5 mg Tablet PO ×2 (13:29→21:12)
--- NOTE | 2022-07-23 15:41 | P.PN_ITS ---
Subjective Subjective: No acute events overnight. Patient denies any nausea, vomiting, headache. Laying comfortably in bed. Continues to remain on room air. Started on metoprolol yesterday but patient continues to refuse. States in past that he takes blood pressure medications blood pressures bottomed down. Discussed in detail with need for being on beta-marialuisa to prevent from sudden cardiac , tachycardia, ventricular tachycardia in setting of ischemic cardiomyopathy but patient continues to refuse. Medications: Reviewed: Yes Vitals/I&O/Wt Last Vital Signs Temp 97.6 F 07/23/22 12:03 Pulse 105 H 07/23/22 12:03 Resp 15 07/23/22 12:03 BP 113/79 07/23/22 12:03 Pulse Ox 95 07/23/22 12:03 O2 Del Method 07/23/22 12:03 07/23/22 07/23/22 07/23/22 06:59 14:59 22:59 Intake Total 0 / 1071 120 / 120 Output Total 525 / 1225 Balance -525 / -154 120 / 120 Weight last 48 hrs Weight 83.688 kg Weight 83.688 kg Physical Exam Narrative: General: No acute distress, AO x3, NC oxygen supplementation, chr onically sick appearing HEENT: PERRLA, pupils bilaterally equal and reactive Chest:Bronchial breath sounds b/l ,decreased air entry, equal good air entry bilaterally, no more fine basal crackles CVS: S1-S2 regular, no murmurs, no tachycardia, no gallops, no rubs Abdomen: Soft, nontender, no organomegaly, bowel sounds present, morbidly obese Neuro: No focal deficits, no facial deformity, AO x3, power 5/5 in all limbs Data 07/23/22 05:00 07/23/22 05:00 A&P Assessment and plan (1) CHF (congestive heart failure): Ischemic cardiomyopathy. EF of 20% with severely decreased LV function and dilated LV cavity. Patient looking compensated for now. Continue Lasix 40 mg twice daily. Strict input output charting, daily weights. Fluid restriction up to 1200 to 1500 cc. Supplementation keeping saturation over 90%. Most likely patient will require oxygen on sleeping on mild exertion. Will do home O2 evaluation prior to discharge. Qualifiers: Heart failure type: systolic Heart failure chronicity: acute Qualified Code(s): I50.21 - Acute systolic (congestive) heart failure (2) Cardiomyopathy: Monitor electrolytes including potassium and magnesium. No active chest pain. Continue with aspirin, statin, Plavix. A1c 8.5, lipid panel appreciated. Patient refusing blood pressure medications including lisinopril and metoprolol. After repeated extensive counseling. He is worried that his blood pressures bottomed out with the medications. (3) Diabetes: A1c 8.5. INsulin sliding scale. (4) Transaminitis: Slight trending up of liver enzymes today. Given concern for ischemic cardiomyopathy concern for early cardiogenic shock. We will continue to monitor. Continue to monitor hemodynamics. Check CPK as patient is on statins and lactate. Continue to monitor daily. Continue to worsen can plan for hepatitis panel and dobutamine drip. Plan Full code. Cardiac carb consistent diet. Lovenox for DVT prophylaxis. Protonix for PUD prophylaxis. Attestations Medical Necessity Statement*: Requires further hospitalization for evaluation and management of ischemic cardiomyopathy, possible early cardiogenic shock with developing transaminitis Diagnoses CHF (congestive heart failure) I50.21 Heart failure type: systolic Heart failure chronicity: acute Cardiomyopathy I42.9 Diabetes E11.9 Transaminitis R74.01
[2022-07-23 17:14] LABS: Glucose Point of Care 80 mg/dL (70-110)
[2022-07-23] MEDS: atorvastatin 40 mg Tablet 80 MG PO (21:12)
[2022-07-23] MEDS: acetaminophen 325 mg Tablet 650 MG PO (21:12)
[2022-07-23 21:33] LABS: Glucose Point of Care 92 mg/dL (70-110)
[2022-07-24] VITALS: BP 116/80; PULSE 99; RESP 12; TEMP 36.6; O2SAT 90
[2022-07-24 04:00] VITALS: BP 87/48; PULSE 86; RESP 26; TEMP 36.8; O2SAT 90
--- NOTE | 2022-07-24 05:06 | PC.NURSE ---
Dr Waller was notified of previously charted low blood pressure. No new orders received at this time.
[2022-07-24 05:34] VITALS: PULSE 87
[2022-07-24 05:36] LABS: Basophils % 0.7 %; Eosinophils # 0.1 10^3/uL (0.0-0.8); Eosinophils % 2.3 %; Hematocrit 37.4 % (42.0-52.0); Hemoglobin 11.7 g/dL (11.7-16.6); Lymphocytes # 1.2 10^3/uL (0.8-4.8); Mean Corpuscular HGB Conc 31.3 g/dL (30.0-36.0); Mean Corpuscular Hemoglobin 25.9 pg (28.0-34.0); Mean Corpuscular Volume 82.9 fl (80-94); Mean Platelet Volume 11.6 fL (7.4-10.4); Monocytes # 0.5 10^3/uL (0.2-0.9); Monocytes % 8.6 %; Neutrophils # 4.12 10^3/uL (1.8-7.7); Neutrophils % 68.2 %; Nucleated Red Blood Cells % 0 %; Platelet Count 215 10^3/cmm (130-400); Red Blood Count 4.51 10^6/uL (4.1-5.3); Red Cell Distribution Width 14.3 % (12.1-15.1)
[2022-07-24 05:59] LABS: Alanine Aminotransferase 107 U/L (0-41); Albumin Level 3.5 g/dL (3.5-5.2); Alkaline Phosphatase 89 U/L (40-130); Anion Gap 18.1 (5-19); Aspartate Amino Transferase 87 U/L (0-40); Blood Urea Nitrogen 28 mg/dL (6-20); Calcium 8.5 mg/dL (8.5-10.5); Carbon Dioxide 29 mmol/L (22-29); Chloride 97 mmol/L (98-107); Globulin 2.4 g/dL (1.3-4.6); Glomerular Filtration Rate 72.1 mL/min (90-130); Glucose 93 mg/dL (65-115); Osmolality Calculated 295 mOsm/kg (285-295); Potassium 4.1 mmol/L (3.5-5.1); Sodium 140 mmol/L (136-145); Total Bilirubin 0.7 mg/dL (0.15-1.2); Total Protein 5.9 g/dL (6.6-8.7)
[2022-07-24 07:09] LABS: Glucose Point of Care 100 mg/dL (70-110)
--- NOTE | 2022-07-24 07:27 | PM.PN ---
Subjective Subjective: Patient is doing well. no chest pain. Shortness of breath has improved. Vitals/I&O/Wt Last Vital Signs Temp 98.3 F 07/24/22 04:00 Pulse 87 07/24/22 05:34 Resp 26 H 07/24/22 04:00 BP 87/48 07/24/22 04:00 Pulse Ox 90 07/24/22 04:00 O2 Del Method 07/24/22 04:00 O2 Flow Rate 1.5 07/24/22 00:00 07/23/22 07/24/22 07/24/22 22:59 06:59 14:59 Intake Total 360 / 480 0 / 480 Balance 360 / 480 0 / 480 Weight last 48 hrs Weight 182 lb 9.6 oz Weight 184 lb 8 oz Physical Exam Narrative: GENERAL: Patient is alert, awake and oriented x3. [] NECK: No jugular vein distension. [] HEENT: No cyanosis. No icterus. No pallor. [] HEART: Regular S1 and S2. LUNGS: Clear to auscultate bilaterally. [] ABDOMEN: Distended CENTRAL NERVOUS SYSTEM: Grossly nonfocal. [] EXTREMITIES: Lower extremities with 1+ edema Data 07/24/22 05:01 07/24/22 05:01 A&P Assessment and plan (1) Atherosclerosis of coronary artery: (2) CHF (congestive heart failure): Qualifiers: Heart failure type: systolic Heart failure chronicity: acute Qualified Code(s): I50.21 - Acute systolic (congestive) heart failure (3) Diabetes: (4) Cardiomyopathy: (5) Diabetic peripheral neuropathy associated with type 2 diabetes mellitus: Plan Patient has presented with acute on chronic congestive heart failure. He has ischemic cardiomyopathy. Lexiscan shows no significant ischemia, has infarction. Switch to oral Lasix. Continue renal monitoring We will benefit from referral to advanced heart failure team for evaluation for possible transplant/advanced therapies. Low-sodium diet advised Thank you for involving us with care of this patient. We will continue to follow. Please call with questions Attestations Medical Necessity Statement*: Care expected to cross 2 midnights. Coding Level of Care Code Acute Code for [facility] Fwd Diagnoses Atherosclerosis of coronary artery I25.10 CHF (congestive heart failure) I50.21 Heart failure type: systolic Heart failure chronicity: acute Diabetes E11.9 Cardiomyopathy I42.9 Diabetic peripheral neuropathy associated with type 2 diabetes mellitus E11.42
[2022-07-24 08:00] VITALS: BP 100/66; PULSE 89; RESP 15; TEMP 36.4; O2SAT 90
[2022-07-24] MEDS: FUROsemide 40 mg Tablet PO (08:39)
[2022-07-24] MEDS: clopidogrel 75 mg Tablet PO (08:40)
[2022-07-24] MEDS: sennosides-docusate Tablet 2 TAB PO (08:40)
[2022-07-24] MEDS: aspirin 81 mg EC Tablet PO (08:40)
[2022-07-24] MEDS: pantoprazole DR 40 mg Tablet PO (08:40)
[2022-07-24] MEDS: ALPRAZolam 0.5 mg Tablet PO (08:50)
--- NOTE | 2022-07-24 10:15 | CTR_ITS ---
PROCEDURE INFORMATION: Exam: CT Abdomen And Pelvis Without Contrast Exam date and time: 07/24/2022 11:08 AM Age: 47 years old Clinical indication: Other: Diarrhea; Abdominal pain; Generalized; Additional info: Abd pain TECHNIQUE: Imaging protocol: Computed tomography of the abdomen and pelvis without contrast. Radiation optimization: All CT scans at this facility use at least one of these dose optimization techniques: automated exposure control; mA and/or kV adjustment per patient size (includes targeted exams where dose is matched to clinical indication); or iterative reconstruction. REPORTING DATA: Count of CT and Cardiac NM exams in prior 12 months: This patient has received 2 known CTs and 0 known cardiac nuclear medicine studies in the 12 months prior to the current study. COMPARISON: CT abdomen pelvis w con* [id number] 06/09/2022 10:07 AM RADIATION DOSE METRICS: Total DLP (mGy-cm): 642.68 FINDINGS: Detailed evaluation of the abdominal and pelvic viscera is somewhat limited in the absence of intravenous contrast. Lungs: Interstitial prominence, basilar airspace disease, and prominent asymmetric pleural effusions (right greater than left. Liver: No focal hepatic mass. Residual periportal edema, which is poorly evaluated in the absence of intravenous contrast. Gallbladder and bile ducts: Unremarkable gallbladder. Pancreas: No pancreatic mass. Spleen: Enlarged spleen measuring 14.7 cm in length. Adrenal glands: Unremarkable adrenals. Kidneys and ureters: Normal renal morphology. No hydronephrosis. Stomach and bowel: No bowel dilatation. Mild wall thickening in the nondistended colon. Prominent right-sided stool. Appendix: No acute appendicitis. Intraperitoneal space: Mesenteric edema and increased intraperitoneal fluid. Vasculature: Normal caliber of the abdominal aorta. Vascular calcification. Lymph nodes: Subcentimeter lymph nodes. Urinary bladder: Dilated bladder. Reproductive: Unremarkable as visualized. Bones/joints: Marginal osteophytes , Schmorl's nodes, and thoracic disc calcifications. Soft tissues: Extensive subcutaneous edema. CT/CT abdomen pelvis wo con [id number] IMPRESSION: 1. Interstitial prominence, basilar airspace disease, and prominent asymmetric pleural effusions (right greater than left). 2. Mesenteric edema and increased intraperitoneal fluid. 3. Additional findings as described above.
[2022-07-24 11:21] LABS: Glucose Point of Care 206 mg/dL (70-110)
[2022-07-24 11:35] VITALS: BP 106/74; PULSE 96; RESP 16; O2SAT 93
--- NOTE | 2022-07-24 12:05 | PM.DCS ---
Discharge Providers Date of Admission: 07/20/22 10:19 Date of Discharge: July 24, 2022 Attending Provider at Admission: Ken Lerma MD Attending Provider at Discharge: Joey Joyner MD Consults: Cardiology: Dr. Herndon Primary Care Provider: Jose Dunbar MD Diagnoses at Discharge Discharge Diagnosis (1) Atherosclerosis of coronary artery: Status: Acute (2) CHF (congestive heart failure): Status: Acute Qualifiers: Heart failure chronicity: acute Heart failure type: systolic Qualified Code(s): I50.21 - Acute systolic (congestive) heart failure (3) Diabetes: Status: Acute (4) Cardiomyopathy: Status: Acute (5) Diabetic peripheral neuropathy associated with type 2 diabetes mellitus: Status: Acute Reason for Visit Reason for Visit: uncontrolled CHF Hospital Course Hospital Course Alvaro Price is a 47 year old male with recent acute VT and underwent revascularization of RCA.? LAD had severe stenosis however had infarction with no significant ischemia on Lexiscan.? Medical therapy was pursued.? Patient has severely reduced LV systolic function with EF of 20%.? He was referred to CT surgery office for ICD placement.? Was found to be volume overloaded and was sent to the hospital.?Over the last week he has noticed increasing lower extremity edema as well as some abdominal distention.? He has had nausea, and even occasional vomiting.? He has had weight loss since his hospitalization in March.? He denies any chest discomfort.? He has an occasional cough but it is not really productive.? No blood in his stool or black or tarry stools.? No abdominal discomfort.? He is frequently constipated. His NT proBNP is significantly elevated and is more than 9000.? He has abdominal distension, and lower extremity edema.? Significant shortness of breath.? No chest pain. As an outpatient there was a concern for possible mild relative cardiogenic shock given history of significant congestive heart failure. Cardiology was consulted. As per the recommendations patient was not requiring any supplemental oxygen without significant signs of organ dysfunction hence it was decided against starting IV dobutamine. He was started on IV diuresis. He responded well to the treatment and is overall net negative during hospitalization. Most of his symptoms on admission were mostly secondary to fluid overload in setting of congestive heart failure and ischemic cardiomyopathy. He has been discharged in hemodynamically stable condition on oral Lasix 80 mg every morning and 40 mg every afternoon. He will continue follow-up as an outpatient with cardiology for early refill to cardiac transplant team as an outpatient. He will need to follow-up with his primary care provider as well within next 1 week for a repeat CMP. Physical Exam Narrative: General: No acute distress, AO x3, NC oxygen supplementation, chronically sick appearing HEENT: PERRLA, pupils bilaterally equal and reactive Chest:Bronchial breath sounds b/l ,decreased air entry, equal good air entry bilaterally, no more fine basal crackles CVS: S1-S2 regular, no murmurs, no tachycardia, no gallops, no rubs Abdomen: Soft, nontender, no organomegaly, bowel sounds present, morbidly obese Neuro: No focal deficits, no facial deformity, AO x3, power 5/5 in all limbs Discharge Data Studies Completed and Pending Completed Studies During Hospitalization Category Date Time Status CT abdomen pelvis con [id number] Routine Cat Scan 07/24/22 10:15 Completed XR chest 1V portable [id number] Routine Exams 07/20/22 11:00 Completed Radiology Impressions Chest X-Ray 07/20/22 11:00 IMPRESSION: Similar small bilateral pleural effusions Abdomen/Pelvis CT 07/24/22 10:15 IMPRESSION: 1. Interstitial prominence, basilar airspace disease, and prominent asymmetric pleural effusions (right greater than left). 2. Mesenteric edema and increased intraperitoneal fluid. 3. Additional findings as described above. Laboratory Results WBC 6.0 10^3/uL (4.0-10.0) 07/24/22 05:01 RBC 4.51 10^6/uL (4.1-5.3) 07/24/22 05:01 Hgb 11.7 g/dL (11.7-16.6) 07/24/22 05:01 Hct 37.4 % (42.0-52.0) L 07/24/22 05:01 MCV 82.9 fl (80-94) 07/24/22 05:01 MCH 25.9 pg (28.0-34.0) L 07/24/22 05:01 MCHC 31.3 g/dL (30.0-36.0) 07/24/22 05:01 RDW 14.3 % (12.1-15.1) 07/24/22 05:01 Plt Count 215 10^3/cmm (130-400) 07/24/22 05:01 MPV 11.6 fL (7.4-10.4) H 07/24/22 05:01 Neut % (Auto) 68.2 % 07/24/22 05:01 Lymph % (Auto) 20.0 % 07/24/22 05:01 [place] % (Auto) 8.6 % 07/24/22 05:01 Eos % (Auto) 2.3 % 07/24/22 05:01 Baso % (Auto) 0.7 % 07/24/22 05:01 Neut # (Auto) 4.12 10^3/uL (1.8-7.7) 07/24/22 05:01 Lymph # (Auto) 1.2 10^3/uL (0.8-4.8) 07/24/22 05:01 [place] # (Auto) 0.5 10^3/uL (0.2-0.9) 07/24/22 05:01 Eos # (Auto) 0.1 10^3/uL (0.0-0.8) 07/24/22 05:01 Baso # (Auto) 0.0 10^3/uL (0.0-0.1) 07/24/22 05:01 Nucleated RBC % (auto) 0 % 07/24/22 05:01 Nucleated RBCs # 0.0 /100WBC 07/24/22 05:01 Sodium 140 mmol/L (136-145) 07/24/22 05:01 Potassium 4.1 mmol/L (3.5-5.1) 07/24/22 05:01 Chloride 97 mmol/L (98-107) L 07/24/22 05:01 Carbon Dioxide 29 mmol/L (22-29) 07/24/22 05:01 Anion Gap 18.1 (5-19) 07/24/22 05:01 BUN 28 mg/dL (6-20) H 07/24/22 05:01 Creatinine 1.1 mg/dL (0.7-1.2) 07/24/22 05:01 GFR Calculation 72.1 mL/min (90-130) L 07/24/22 05:01 Glucose 93 mg/dL (65-115) 07/24/22 05:01 POC Glucose 206 mg/dL (70-110) H 07/24/22 11:17 Estimat Average Glucose 197 07/23/22 05:00 Hemoglobin A1c 8.5 % (4.0-6.0) H 07/23/22 05:00 Calculated Osmolality 295 mOsm/kg (285-295) 07/24/22 05:01 Lactate 1.2 mmol/L (0.5-2.2) 07/23/22 09:58 Calcium 8.5 mg/dL (8.5-10.5) 07/24/22 05:01 Magnesium 2.0 mg/dL (1.7-2.3) 07/23/22 05:00 Iron 49 ug/dL (59-158) L 07/22/22 05:12 TIBC 147 mcg/dl 07/22/22 05:12 % Saturation 33.3 % (20-50) 07/22/22 05:12 Unsat Iron Binding 98 ug/dL (112-347) L 07/22/22 05:12 Total Bilirubin 0.7 mg/dL (0.15-1.2) 07/24/22 05:01 AST 87 U/L (0-40) H 07/24/22 05:01 ALT 107 U/L (0-41) H 07/24/22 05:01 Alkaline Phosphatase 89 U/L (40-130) 07/24/22 05:01 Creatine Kinase 53 U/L (39-308) 07/23/22 05:00 NT-Pro-B Natriuret Pep 9177 pg/mL (0-125) H 07/20/22 11:34 Total Protein 5.9 g/dL (6.6-8.7) L 07/24/22 05:01 Albumin 3.5 g/dL (3.5-5.2) 07/24/22 05:01 Globulin 2.4 g/dL (1.3-4.6) 07/24/22 05:01 Triglycerides 89 mg/dL (0-150) 07/23/22 05:00 Cholesterol 112 mg/dL (0-200) 07/23/22 05:00 LDL Cholesterol, Calc 66 mg/dL (50-129) 07/23/22 05:00 Total VLDL Cholesterol 18 mg/dL (0-30) 07/23/22 05:00 HDL Cholesterol 28 mg/dL (60-100) L 07/23/22 05:00 Cholesterol/HDL Ratio 4.00 mg/dL (1.0-5.00) 07/23/22 05:00 Lipase 16 U/L (13-60) 07/21/22 04:57 Vitamin B12 689 pg/mL (232-1245) 07/22/22 05:12 Folate 12.6 ng/mL (4.5-32.2) 07/22/22 17:58 TSH 1.69 uIU/mL (0.27-4.20) 07/20/22 11:34 Vitals Last Vital Signs Temp 97.5 F L 07/24/22 08:00 Pulse 96 07/24/22 11:35 Resp 16 07/24/22 11:35 BP 106/74 07/24/22 11:35 Pulse Ox 93 07/24/22 11:35 O2 Del Method 07/24/22 11:35 O2 Flow Rate 1.5 07/24/22 08:00 Discharge Plan Discharge Patient Disposition: Home Condition: Stable Prescriptions: Continued Humalog KwikPen Insulin 100 unit/mL insulin pen 2 unit SUBCUT AC Qty: 15 2RF Rx Instructions: NOT SARTED 04/19/22 metformin 500 mg tablet 500 mg PO BID acetaminophen [Tylenol] 325 mg Capsule 650 mg PO QID PRN (Reason: Pain) alprazolam 0.25 mg tablet 0.25 mg PO BID pantoprazole 40 mg tablet,delayed release (DR/EC) 40 mg PO DAILY dicyclomine 10 mg capsule 10 mg PO Q8H PRN (Reason: Abdominal Discomfort) atorvastatin 40 mg Tablet 80 mg PO BEDTIME Qty: 30 9RF clopidogrel 75 mg Tablet 75 mg PO DAILY Qty: 30 3RF aspirin 81 mg Tablet,Delayed Release (Dr/Ec) 81 mg PO DAILY Qty: 100 3RF nitroglycerin 0.4 mg Tablet, Sublingual 0.4 mg sublingual Q5M PRN (Reason: Chest Pain) Qty: 25 2RF Januvia 50 mg tablet 50 mg PO DAILY Qty: 30 3RF Changed furosemide 40 mg tablet See Rx Instructions PO .COMPLEX Qty: 90 0RF Rx Instructions: 80 in AM and 40 in evening Discharge Orders: Discharge Order (Routine); Ordered 07/24/22 Ordered By: Joey Joyner Referrals: Jose Dunbar MD [Primary Care Provider] - 07/31/22 2:40 pm Rakan Herndon M.D [Physician] - 2 weeks Discharge Diet: Cardiac and Diabetic Discharge Activity: Resume usual activity and Increase activity as tolerated Patient Instructions: Heart Failure (DC), CHF Stoplight, Opioid Safety Activity Restrictions/Additional Instructions: Please follow-up with cardiology within next 2 weeks. With your primary care provider within next 1 week. Please have a repeat CMP with your primary care provider. Dose of Lasix has been changed. Now you will be taking 80 mg in the morning and 40 mg in evening. Continue with fluid restriction up to 1500 cc. Salt intake to less than 2 g. Continue monitoring of blood pressure daily at home and maintain a blood pressure diary. Continue checking your blood sugars at home and maintain a blood sugar diary. Continue taking your insulin as before. Discharge Attestations Time Spent in Discharge Care*: greater than 30 min Specific Discharge Activities: educating patient, discussing with pcp/other providers, discussing with rn case manager hospice/social workers/dc planners, documenting/other paperwork and evaluating patient/reviewing data Status at Discharge: Cognitive status at discharge: cognitively intact, Behavioral status at discharge: cooperative, Functional status at discharge: independent ambulation, Overall status at discharge: patient is progressing back to baseline Quality Metrics Clinical Quality Measures [ No reported AMI, CVA or VTE this stay] Coding Level of Care Code 97644 Total time (in minutes) for Discharge: 50 Diagnoses Atherosclerosis of coronary artery I25.10 CHF (congestive heart failure) I50.21 Heart failure chronicity: acute Heart failure type: systolic Diabetes E11.9 Cardiomyopathy I42.9 Diabetic peripheral neuropathy associated with type 2 diabetes mellitus E11.42
--- NOTE | 2022-07-24 16:34 | PC.NURSE ---
Discharge Patient had been discharged and walked out of the room to leave. BOILER TENDERS SUPERVISOR asked patient if they wanted/needed a wheelchair and help to be taken downstairs. Patient stated that they would be okay and continued to walk and go down the elevator.
== END 2022-07-24 14:00 | disposition home or self-care (01) | DRG 293 ==
LOC: ICU 07-21 12:35 → MEDSURG 07-21 17:59
PROVIDERS: Admitting Provider Internal Medicine; PCP Internal Medicine; Visit Provider Student in an Organized Health Care Education/Training Program
DX: I50.23 Acute on chronic systolic (congestive) heart failure (principal); I25.2 Old myocardial infarction; I25.10 Atherosclerotic heart disease of native coronary artery without angina pectoris; Z98.61 Coronary angioplasty status; K59.00 Constipation, unspecified; I25.5 Ischemic cardiomyopathy; Z79.4 Long term (current) use of insulin; Z79.84 Long term (current) use of oral hypoglycemic drugs; Z79.02 Long term (current) use of antithrombotics/antiplatelets; Z79.82 Long term (current) use of aspirin; E11.42 Type 2 diabetes mellitus with diabetic polyneuropathy; Z88.2 Allergy status to sulfonamides; F17.220 Nicotine dependence, chewing tobacco, uncomplicated; E87.6 Hypokalemia
CPT/HCPCS: 36415; 36416; 71045; 74176; 80048; 80053; 80061; 82550; 82607; 82746; 82962; 83036; 83540; 83550; 83605; 83690; 83735; 83880; 84443; 85025; 93005; 96372; 96376; J1650; J1815; J1940; J2405